=== PATIENT | female | born 1940 | race Caucasian/White ===

== ENCOUNTER 2017-04-24 08:05 | Emergency (ER) | payer MEDICARE, OTHER ==
--- NOTE | 2017-04-24 08:58 | EDM.PDOC ---
ED HPI GENERAL MEDICAL PROBLEM - General Chief Complaint: Syncope Stated Complaint: VERTIGO Time Seen by Provider: 04/24/17 08:20 Source of Information: Reports: Patient, Family History Limitations: Reports: No Limitations - History of Present Illness INITIAL COMMENTS - FREE TEXT/NARRATIVE: 77-year-old female who lives independently was doing fine but last evening around 5 PM she was sitting, rolled to the side to get up and had a sudden onset of vertigo. She's had no headache, shortness of breath, palpitations, trauma, or recent illness. It has persisted for the last 12 hours, she is having trouble ambulating and needs assistance with holding onto rolling chairs or a walker. She also has persistent nausea, tried to drink some coffee this morning and had emesis. She's vomited several times overnight. If she sits still she feels fairly comfortable but any movement especially of her head causes vertigo. She had 1 previous episode similar to this but it was years ago and was a "virus". Onset: Sudden Duration: Hour(s): (13 hours ago) Severity: Moderate Improves with: Reports: Other (Sitting still) Worsens with: Reports: Movement Associated Symptoms: Reports: Malaise, Nausea/Vomiting. Denies: Confusion, Chest Pain, Cough, Fever/Chills, Headaches, Shortness of Breath denies pain Pain Score (Numeric/FACES): 0 - Related Data Allergies Allergy/AdvReac Type Severity Reaction Status Date / Time [id number]-Tab Reductase AdvReac Severe sore Verified 04/24/17 08:10 Inhibitor muscles painful to walk Home Meds: Home Meds Aspirin/Calcium Carbonate/Mag [Aspirin Buffered 325 mg Tab] 325 mg PO DAILY 09/09 [History] Calcium Carb & Citrate/Vit D3 [Calcium + D3 ER Tablet] 1 each PO BID 04/28/13 [ History] Flaxseeds 2 oz OR DAILY 04/28/13 [History] Loratadine [Claritin] 10 mg PO DAILY PRN 04/28/13 [History] Metoprolol Tartrate [Lopressor] 25 mg OR DAILY 04/28/13 [History] Multivitamin [Multi Vitamin Daily] 1 each PO DAILY 04/28/13 [History] [place]-3/DHA/Epa/Fish Oil [Fish Oil 1,000 mg Softgel] 1 each PO DAILY 04/28/13 [ History] Ranitidine HCl [Ranitidine] 150 mg PO BID 04/28/13 [History] Gabapentin [Neurontin] 600 mg PO TID 12/23/15 [History] rOPINIRole HCl [Requip] 1 mg PO DAILY 12/23/15 [History] Past Medical History HEENT History: Reports: Impaired Vision Cardiovascular History: Reports: High Cholesterol, Hypertension 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 History: Reports: 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: Musculoskeletal History: Reports: Back Pain, Chronic, Osteoarthritis Neurological History: Reports: TIA - Infectious Disease History Infectious Disease History: Reports: Measles, Mumps - Past Surgical History HEENT Surgical History: Reports: Cataract Surgery Cardiovascular Surgical History: Reports: Other (See Below) Other Cardiovascular Surgeries/Procedures: angiogram GI Surgical History: Reports: Appendectomy, Hernia Repair/Other Female Surgical History: Reports: Hysterectomy Social & Family History - Tobacco Use Smoking Status *Q: Current Every Day Smoker Years of Tobacco use: 50 Packs/Tins Daily: 1 Used Tobacco, but Quit: No Month Tobacco Last Used: 10/26/2014 Second Hand Smoke Exposure: Yes - Caffeine Use Caffeine Use: Reports: Coffee - Recreational Drug Use Recreational Drug Use: No ED ROS GENERAL - Review of Systems Review Of Systems: See Below Constitutional: Denies: Fever, Chills HEENT: Reports: Sinus Problem (She has had some recent sinus congestion). Denies: Vision Change Respiratory: Denies: Shortness of Breath, Cough Cardiovascular: Denies: Chest Pain GI/Abdominal: Denies: Abdominal Pain : Reports: No Symptoms Musculoskeletal: Reports: Back Pain (Chronic back pain) Skin: Reports: No Symptoms Neurological: Reports: Difficulty Walking (Due to vertigo). Denies: Headache, Numbness, Paresthesia, Tingling Psychiatric: Reports: No Symptoms ED EXAM, DIZZINESS - Physical Exam Exam: See Below Exam Limited By: No Limitations General Appearance: Alert, Mild Distress (Very uncomfortable with any movement, stable when still) Eye Exam: Bilateral Eye: Other (Patient surprisingly has no nystagmus either direction. It is somewhat more difficult for her to gaze to the left but I cannot produce nystagmus) Ears: Normal External Exam, Normal TMs Head Exam: Atraumatic Vertigo: reproducible (Reproducible with movement of the head but no direction is significantly worse than the other) Respiratory/Chest: No Respiratory Distress, Lungs Clear GI/Abdominal: Non-Tender Neurological: Alert, No Motor/Sensory Deficits, Oriented x 3 Extremities: No: Pedal Edema Psychiatric: Normal Affect, Normal Mood Skin Exam: Warm, Dry Course - Vital Signs Last Recorded V/S: Last Vital Signs Temp 96.8 F 04/24/17 08:11 Pulse 58 L 04/24/17 09:20 Resp 21 H 04/24/17 09:20 BP 173/85 H 04/24/17 09:20 Pulse Ox 98 04/24/17 09:20 - Orders/Labs/Meds Labs: Laboratory Tests 04/24/17 04/24/17 Range/Units 08:58 08:58 WBC 9.4 (4.5-11.0) K/uL RBC 4.71 (3.30-5.50) M/uL Hgb 15.4 H (12.0-15.0) g/dL Hct 45.0 (36.0-48.0) % MCV 96 (80-98) fL MCH 33 H (27-31) pg MCHC 34 (32-36) % Plt Count 239 (150-400) K/uL Neut % (Auto) 87 H (36-66) % Lymph % (Auto) 8 L (24-44) % [place] % (Auto) 5 (2-6) % Eos % (Auto) 0 L (2-4) % Baso % (Auto) 0 (0-1) % Sodium 140 (140-148) mmol/L Potassium 4.5 (3.6-5.2) mmol/L Chloride 101 (100-108) mmol/L Carbon Dioxide 29 (21-32) mmol/L Anion Gap 10.2 (5.0-14.0) mmol/L BUN 21 H (7-18) mg/dL Creatinine 1.0 (0.6-1.0) mg/dL Est Cr Clr Drug Dosing 33.84 mL/min Estimated GFR (MDRD) 54 L (>60) Glucose 117 H (74-106) mg/dL Calcium 9.2 (8.5-10.1) mg/dL Total Bilirubin 0.3 (0.2-1.0) mg/dL AST 19 (15-37) U/L ALT 25 (12-78) U/L Alkaline Phosphatase 58 (46-116) U/L Total Protein 7.9 (6.4-8.2) g/dL Albumin 3.9 (3.4-5.0) g/dL Globulin 4.0 H (2.3-3.5) g/dL Albumin/Globulin Ratio 1.0 L (1.2-2.2) Meds: Medications Discontinued Medications Generic Name Dose Route Start Last Admin Trade Name Garima PRN Reason Stop Dose Admin Meclizine HCl 25 mg 04/24/17 09:17 04/24/17 09:26 Antivert PO 04/24/17 09:18 25 mg ONETIME ONE Administration - Re-Assessments/Exams Free Text/Narrative Re-Assessment/Exam: 04/24/17 08:58 Patient was initially placed on a quality assurance monitor final and is in a normal sinus rhythm, normal vitals. An Yasmin maneuver was performed focusing on the left, after 15 minutes there was no improvement. At that point the patient was sent to CT for a noncontrast head CT, and a CBC and CMP were obtained. 04/24/17 09:37 CT of the head was normal. Labs were also reassuring. The patient was given 25 mg of meclizine by mouth. 04/24/17 09:42 Prior to discharge the patient was ambulated in the pugh with assistance and was much improved. She was discharged with additional doses of meclizine to take up to 3 times a day and can return anytime if worsening or concerns. Departure - Departure Time of Disposition: 09:58 Disposition: Home, Self-Care 01 Condition: Fair Clinical Impression: Vertigo, benign positional Qualifiers: Laterality: left Qualified Code(s): H81.12 - Benign paroxysmal vertigo, left ear - Discharge Information Instructions: Vertigo, [id number] Referrals: Mone Ortiz PA [Primary Care Provider] - Forms: ED Department Discharge Care Plan Goals: Continue your current medications, use meclizine every 6-8 hours for persistent vertigo and increase activity as tolerated. Return anytime if worsening or concerns. You should also consider rechecking in 2-3 days if not improving satisfactorily.
[2017-04-24] MEDS ORDERED: Meclizine 25 MG Tab PO ONE (09:17)
[2017-04-24 09:21] VITALS: BP 173/85
--- NOTE | 2017-04-24 09:24 | CT ---
Head wo Cont INDICATION: acute vertigo TECHNIQUE: CT images of the head obtained without IV contrast. DLP: 746 mGycm COMPARISON: 03/28/2010 FINDINGS: No acute intracranial abnormality. No hemorrhage, edema or mass effect. Minimal atrophy and chronic small vessel ischemic disease. The ventricles are normal size. Skull intact. Visualized paranasal sinuses clear. IMPRESSION: Nothing acute. Atrophy and chronic small vessel ischemic disease.
== END 2017-04-24 09:50 | disposition home or self-care (01) ==
LOC: JP.ED 08:05
DX: H81.12 Benign paroxysmal vertigo, left ear (principal); E78.00 Pure hypercholesterolemia, unspecified; I10 Essential (primary) hypertension; M19.90 Unspecified osteoarthritis, unspecified site; F17.210 Nicotine dependence, cigarettes, uncomplicated; Z98.890 Other specified postprocedural states; Z98.49 Cataract extraction status, unspecified eye; Z90.710 Acquired absence of both cervix and uterus; Z79.82 Long term (current) use of aspirin; Z86.73 Personal history of transient ischemic attack (TIA), and cerebral infarction without residual deficits; Z79.899 Other long term (current) drug therapy; Z88.8 Allergy status to other drugs, medicaments and biological substances
CPT/HCPCS: 36415; 70450; 80053; 85025; 99284; A9270; 99283

== ENCOUNTER 2018-02-01 08:28 | Inpatient (IN) | payer MEDICARE, OTHER ==
--- NOTE | 2018-02-01 08:57 | EDM.PDOC ---
ED HPI GENERAL MEDICAL PROBLEM - General Chief Complaint: Cardiovascular Problem Stated Complaint: MEDICAL VIA [place]TH Time Seen by Provider: 02/01/18 08:46 Source of Information: Reports: Patient, RN Notes Reviewed History Limitations: Reports: No Limitations - History of Present Illness INITIAL COMMENTS - FREE TEXT/NARRATIVE: 78-year-old female brought in by EMS services today with a complaint of dizziness a syncopal event on a fall for unknown period of time, she states she' s been ill for about 6 days has had diarrhea on and off denies any fevers slight cough. She recalls going to the mailbox this morning and then awoke on the floor in a house and does not recall falling she denies any pain, also noted by EMS is that she was in atrial fibrillation no history of atrial fibrillation - Related Data Allergies Allergy/AdvReac Type Severity Reaction Status Date / Time [id number]-[id number] Reductase AdvReac Severe sore Verified 04/24/17 08:10 Inhibitor muscles painful to walk Home Meds: Home Meds Aspirin/Calcium Carbonate/Mag [Aspirin Buffered 325 mg Tab] 325 mg PO DAILY 09/09 [History] Metoprolol Tartrate [Lopressor] 25 mg PO DAILY 04/28/13 [History] Multivitamin [Multi Vitamin Daily] 1 each PO DAILY 04/28/13 [History] [place]-3/DHA/Epa/Fish Oil [Fish Oil 1,000 mg Softgel] 1 each PO DAILY 04/28/13 [ History] Ranitidine HCl [Ranitidine] 150 mg PO BID 04/28/13 [History] Gabapentin [Neurontin] 600 mg PO TID 12/23/15 [History] rOPINIRole HCl [Requip] 2 mg PO BEDTIME 12/23/15 [History] Biotin 1 tab PO DAILY 02/01/18 [History] Cholecalciferol (Vitamin D3) [Vitamin D3] 1,000 unit PO DAILY 02/01/18 [History] Meclizine [Antivert] 1 tab PO ASDIRECTED PRN 02/01/18 [History] Past Medical History HEENT History: Reports: Impaired Vision Cardiovascular History: Reports: High Cholesterol, Hypertension 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 History: Reports: 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: Musculoskeletal History: Reports: Back Pain, Chronic, Osteoarthritis Neurological History: Reports: TIA - Infectious Disease History Infectious Disease History: Reports: Measles, Mumps - Past Surgical History HEENT Surgical History: Reports: Cataract Surgery Cardiovascular Surgical History: Reports: Other (See Below) Other Cardiovascular Surgeries/Procedures: angiogram GI Surgical History: Reports: Appendectomy, Hernia Repair/Other Female Surgical History: Reports: Hysterectomy Social & Family History - Tobacco Use Smoking Status *Q: Never Smoker - Caffeine Use Caffeine Use: Reports: Coffee - Recreational Drug Use Recreational Drug Use: No ED ROS GENERAL - Review of Systems Review Of Systems: See Below Constitutional: Reports: Weakness. Denies: Fever, Chills HEENT: Reports: Vertigo Respiratory: Reports: Cough Cardiovascular: Reports: No Symptoms GI/Abdominal: Reports: Diarrhea, Nausea : Reports: No Symptoms Musculoskeletal: Reports: No Symptoms Skin: Reports: No Symptoms ED EXAM, GENERAL - Physical Exam Exam: See Below Free Text/Narrative:: General: Elderly female, ill-appearing, alert and oriented x3 HEENT: head is atraumatic normocephalic, eyes pupils equal round reactive to light, sclera clear no conjunctivitis appreciated. Ears tympanic membranes clear and galan landmarks and light reflex are present bilaterally canals are clear. Nose no septal deviation, nares are clear, no blood present. Mouth mucosa is dry and pink no erythema or exudate noted in soft palate, tongue is midline uvula is midline, dentition is intact. Neck: Supple no thyromegaly no tracheal deviation. Nodes: Cervical nodes subclavicular nodes nontender no palpable lymphadenopathy noted. Lungs: clear to auscultation bilaterally with symmetrical respirations, no adventitious noise appreciated. CV: Tachycardic rate and rhythm S1 and S2 appreciated no murmurs rubs or gallops noted. Abdomen: Soft, nontender, no palpable masses or organomegaly appreciated, no distention no guarding bowel sounds are present, . Neuro: Cranial nerves II through XII grossly intact Skin: Warm and dry, intact Extremities: No lower extremity edema appreciated, Course - Vital Signs Last Recorded V/S: Last Vital Signs Temp 99.9 F 02/01/18 08:52 Pulse 107 H 02/01/18 09:50 Resp 18 02/01/18 09:50 BP 147/71 H 02/01/18 09:50 Pulse Ox 95 02/01/18 09:50 - Orders/Labs/Meds Orders: Active Orders 24 hr Category Date Time Status Vital Signs [RC] Q1H Care 02/01/18 08:50 Active Chest 1V Frontal [CR] Urgent Exams 02/01/18 08:55 Taken CULTURE BLOOD [BC] Urgent Lab 02/01/18 09:00 Received CULTURE BLOOD [BC] Urgent Lab 02/01/18 09:05 Received UA W/MICROSCOPIC [URIN] Urgent Lab 02/01/18 08:50 Ordered Lactated Ringers [Ringers, Lactated] 1,000 ml Med 02/01/18 09:00 Active IV ASDIRECTED Piperacillin/Tazobactam/Dext [Zosyn in Dextrose Iso- Med 02/01/18 09:15 Active Osmotic] 4.5 gm Premix Bag 1 bag IV Q6H Blood Culture x2 Reflex Set [OM.PC] Urgent Oth 02/01/18 08:50 Ordered Medication Orders Lactated Ringer's (Ringers, Lactated) 1,000 mls @ 999 mls/hr IV ASDIRECTED TARUN Last Admin: 02/01/18 09:01 Dose: 999 mls/hr Piperacillin/Tazobactam/ (Dextrose 4.5 gm/ Premix) 100 mls @ 200 mls/hr IV Q6H [facility] Last Admin: 02/01/18 09:25 Dose: 200 mls/hr Labs: Laboratory Tests 02/01/18 02/01/18 02/01/18 Range/Units 08:50 09:00 09:00 WBC 10.6 (4.5-11.0) K/uL RBC 3.81 (3.30-5.50) M/uL Hgb 12.2 D (12.0-15.0) g/dL Hct 36.6 (36.0-48.0) % MCV 96 (80-98) fL MCH 32 H (27-31) pg MCHC 33 (32-36) % Plt Count 415 H (150-400) K/uL Neut % (Auto) 85 H (36-66) % Lymph % (Auto) 7 L (24-44) % [place] % (Auto) 7 H (2-6) % Eos % (Auto) 0 L (2-4) % Baso % (Auto) 0 (0-1) % Sodium 137 L (140-148) mmol/L Potassium 3.7 (3.6-5.2) mmol/L Chloride 99 L (100-108) mmol/L Carbon Dioxide 25 (21-32) mmol/L Anion Gap 16.7 H (5.0-14.0) mmol/L BUN 16 (7-18) mg/dL Creatinine 1.1 H (0.6-1.0) mg/dL Est Cr Clr Drug Dosing 33.34 mL/min Estimated GFR (MDRD) 48 L (>60) Glucose 104 (74-106) mg/dL Lactic Acid (0.4-2.0) mmol/L Calcium 8.8 (8.5-10.1) mg/dL Total Bilirubin 0.7 D (0.2-1.0) mg/dL AST 27 (15-37) U/L ALT 73 D (12-78) U/L Alkaline Phosphatase 125 H D (46-116) U/L Creatine Kinase (26-192) U/L C-Reactive Protein 8.86 H (0.0-0.3) mg/dL Total Protein 7.3 (6.4-8.2) g/dL Albumin 3.0 L (3.4-5.0) g/dL Globulin 4.3 H (2.3-3.5) g/dL Albumin/Globulin Ratio 0.7 L (1.2-2.2) Urine Color Yellow Urine Appearance Clear Urine pH 7.0 (4.5-8.0) Ur Specific [place] 1.005 L (1.008-1.030) Urine Protein Negative (NEGATIVE) mg/dL Urine Glucose (UA) Normal (NEGATIVE) mg/dL Urine Ketones 15 H (NEGATIVE) mg/dL Urine Occult Blood Negative (NEGATIVE) Urine Nitrite Negative (NEGATIVE) Urine Bilirubin Negative (NEGATIVE) Urine Urobilinogen 1 (NORMAL) mg/dL Ur Leukocyte Esterase Negative (NEGATIVE) Urine RBC 0-5 (0-5) Urine WBC 0-5 (0-5) Ur Epithelial Cells Rare Amorphous Sediment Not seen Urine Bacteria Not seen Urine Mucus Not seen 02/01/18 02/01/18 Range/Units 09:00 09:00 WBC (4.5-11.0) K/uL RBC (3.30-5.50) M/uL Hgb (12.0-15.0) g/dL Hct (36.0-48.0) % MCV (80-98) fL MCH (27-31) pg MCHC (32-36) % Plt Count (150-400) K/uL Neut % (Auto) (36-66) % Lymph % (Auto) (24-44) % [place] % (Auto) (2-6) % Eos % (Auto) (2-4) % Baso % (Auto) (0-1) % Sodium (140-148) mmol/L Potassium (3.6-5.2) mmol/L Chloride (100-108) mmol/L Carbon Dioxide (21-32) mmol/L Anion Gap (5.0-14.0) mmol/L BUN (7-18) mg/dL Creatinine (0.6-1.0) mg/dL Est Cr Clr Drug Dosing mL/min Estimated GFR (MDRD) (>60) Glucose (74-106) mg/dL Lactic Acid 1.9 (0.4-2.0) mmol/L Calcium (8.5-10.1) mg/dL Total Bilirubin (0.2-1.0) mg/dL AST (15-37) U/L ALT (12-78) U/L Alkaline Phosphatase (46-116) U/L Creatine Kinase 78 (26-192) U/L C-Reactive Protein (0.0-0.3) mg/dL Total Protein (6.4-8.2) g/dL Albumin (3.4-5.0) g/dL Globulin (2.3-3.5) g/dL Albumin/Globulin Ratio (1.2-2.2) Urine Color Urine Appearance Urine pH (4.5-8.0) Ur Specific [place] (1.008-1.030) Urine Protein (NEGATIVE) mg/dL Urine Glucose (UA) (NEGATIVE) mg/dL Urine Ketones (NEGATIVE) mg/dL Urine Occult Blood (NEGATIVE) Urine Nitrite (NEGATIVE) Urine Bilirubin (NEGATIVE) Urine Urobilinogen (NORMAL) mg/dL Ur Leukocyte Esterase (NEGATIVE) Urine RBC (0-5) Urine WBC (0-5) Ur Epithelial Cells Amorphous Sediment Urine Bacteria Urine Mucus Meds: Medications Generic Name Dose Route Start Last Admin Trade Name Freq PRN Reason Stop Dose Admin Lactated Ringer's 1,000 mls @ 999 mls/hr 02/01/18 09:00 02/01/18 09:01 Ringers, Lactated IV 999 mls/hr ASDIRECTED TARUN Administration Piperacillin/Tazobactam/ 100 mls @ 200 mls/hr 02/01/18 09:15 02/01/18 09:25 Dextrose 4.5 gm/ Premix IV 200 mls/hr Q6H TARUN Administration Discontinued Medications Generic Name Dose Route Start Last Admin Trade Name Freq PRN Reason Stop Dose Admin Ondansetron HCl 4 mg 02/01/18 08:58 02/01/18 09:03 Zofran IVPUSH 02/01/18 08:59 4 mg ONETIME ONE Administration Departure - Departure Time of Disposition: 10:06 Disposition: Admitted As Inpatient 66 Condition: Fair Clinical Impression: Atrial fibrillation with slow ventricular response Referrals: PCP,None [Primary Care Provider] - Forms: ED Department Discharge - My Orders Last 24 Hours: My Active Orders 02/01/18 08:50 Vital Signs [RC] Q1H UA W/MICROSCOPIC [URIN] Urgent Blood Culture x2 Reflex Set [OM.PC] Urgent 02/01/18 08:55 Chest 1V Frontal [CR] Urgent 02/01/18 09:00 CULTURE BLOOD [BC] Urgent Lactated Ringers [Ringers, Lactated] 1,000 ml IV ASDIRECTED 02/01/18 09:05 CULTURE BLOOD [BC] Urgent 02/01/18 09:15 Piperacillin/Tazobactam/Dext [Zosyn in Dextrose Iso-Osmotic] 4.5 gm Premix Bag 1 bag IV Q6H - Assessment/Plan Last 24 Hours: My Active Orders 02/01/18 08:50 Vital Signs [RC] Q1H UA W/MICROSCOPIC [URIN] Urgent Blood Culture x2 Reflex Set [OM.PC] Urgent 02/01/18 08:55 Chest 1V Frontal [CR] Urgent 02/01/18 09:00 CULTURE BLOOD [BC] Urgent Lactated Ringers [Ringers, Lactated] 1,000 ml IV ASDIRECTED 02/01/18 09:05 CULTURE BLOOD [BC] Urgent 02/01/18 09:15 Piperacillin/Tazobactam/Dext [Zosyn in Dextrose Iso-Osmotic] 4.5 gm Premix Bag 1 bag IV Q6H Plan: Assessment Acuity = acute Site and laterality = new onset atrial fibrillation with sinus pauses, gastroenteritis complicated patient with known history of hypertension and dyslipidemia Etiology = unclear etiology Manifestations = syncopal event Location of injury = Home Lab values = WBC unremarkable creatinine elevated 1.1 consistent with chronic renal failure stage G IIIB CRP elevated 8.89 albumin low at 3.0 consistent hypoalbuminemia urinalysis unremarkable chest x-ray I did review films myself I cannot appreciate any acute process, the official read from radiology is pending initial EKG does show atrial fibrillation rate around 120, while on the monitor were able to observe multiple positives at which time she did have dizzy symptoms Plan Call discuss case hospitalist sap pp consultant he agreed to come and evaluate the patient in the emergency department for admission This note was dictated using [employer] voice recognition software please call with any questions on syntax or grammar.
[2018-02-01] MEDS ORDERED: Ondansetron 4 MG/2 ML SDV IVPUSH ONE (08:58)
[2018-02-01] MEDS ORDERED: Piperacillin/Tazobactam 4.5 GM in Sodium Chloride 0.9% 100 ML IV SCH (09:00)
[2018-02-01] MEDS ORDERED: Lactated Ringers 1,000 ML IV SCH (09:00)
[2018-02-01] MEDS ORDERED: Piperacillin/Tazobactam/Dext 4.5 GM in Premix Bag 1 BAG IV SCH (09:15)
--- NOTE | 2018-02-01 11:27 | PCM.HP ---
H&P History of Present Illness - General Date of Service: 02/01/18 Admit Problem/Dx: Admission Diagnosis/Problem Admission Diagnosis/Problem Sick sinus syndrome Source of Information: Patient, Family, Provider History Limitations: Reports: No Limitations - History of Present Illness Initial Comments - Free Text/Narative: Mary Jane presents to the emergency room today with intermittent spells of dizziness. She describes them as a lightheaded/was a feeling and they seem to be most prominent on the left side of her head. She's had several spells over the past week. She reports yesterday she woke up on the floor after walking back from the mailbox. She's not sure how long she was laying on the floor. She felt fine after she woke up so she did not seek medical attention but she did note a bump on the back of her head. She's had some mild nausea and intermittent diarrhea throughout the week but no fevers or chills. Appetite has been okay for the most part but food seems to make the nausea little bit more intense. She reports mild generalized abdominal pain. The pain has not been bad enough for her to take anything for the pain. Pain is relatively constant even though mild and does not radiate. No obvious triggers to make it worse. She does not report a history of heart disease. Since arrival to the emergency room she has had intermittent episodes of tachycardia with heart rates in the 140s as well as episodes of bradycardia with heart rates down into the low 30s. Laboratory studies are fairly unremarkable at this point. As the emergency room stay has progressed she went into a junctional escape rhythm. There is concern for sick sinus syndrome with tachybradycardia syndrome. Pacemaker placement is planned. - Related Data Allergies/Adverse Reactions: Allergies Allergy/AdvReac Type Severity Reaction Status Date / Time Zrompvp-Cgi-Vcv Reductase AdvReac Severe sore Verified 04/24/17 08:10 Inhibitor muscles painful to walk Home Medications: Home Meds Aspirin/Calcium Carbonate/Mag [Aspirin Buffered 325 mg Tab] 325 mg PO DAILY 09/09 [History] Metoprolol Tartrate [Lopressor] 25 mg PO DAILY 04/28/13 [History] Multivitamin [Multi Vitamin Daily] 1 each PO DAILY 04/28/13 [History] [place]-3/DHA/Epa/Fish Oil [Fish Oil 1,000 mg Softgel] 1 each PO DAILY 04/28/13 [ History] Ranitidine HCl [Ranitidine] 150 mg PO BID 04/28/13 [History] Gabapentin [Neurontin] 600 mg PO TID 12/23/15 [History] rOPINIRole HCl [Requip] 2 mg PO BEDTIME 12/23/15 [History] Biotin 1 tab PO DAILY 02/01/18 [History] Cholecalciferol (Vitamin D3) [Vitamin D3] 1,000 unit PO DAILY 02/01/18 [History] Meclizine [Antivert] 1 tab PO ASDIRECTED PRN 02/01/18 [History] Past Medical History HEENT History: Reports: Impaired Vision Cardiovascular History: Reports: High Cholesterol, Hypertension 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 History: Reports: 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: Musculoskeletal History: Reports: Back Pain, Chronic, Osteoarthritis Neurological History: Reports: TIA - Infectious Disease History Infectious Disease History: Reports: Measles, Mumps - Past Surgical History HEENT Surgical History: Reports: Cataract Surgery Cardiovascular Surgical History: Reports: Other (See Below) Other Cardiovascular Surgeries/Procedures: angiogram GI Surgical History: Reports: Appendectomy, Hernia Repair/Other Female Surgical History: Reports: Hysterectomy Social & Family History - Family History Cardiac: Reports: Other (See Below) (mom had SSS but declined pacemaker) - Tobacco Use Smoking Status *Q: Never Smoker - Caffeine Use Caffeine Use: Reports: Coffee - Alcohol Use Alcohol Use History: No - Recreational Drug Use Recreational Drug Use: No H&P Review of Systems - Review of Systems: Review Of Systems: See Below Free Text/Narrative: A complete 12 point review of systems was obtained. Pertinent positives and negatives are noted in the history of present illness. All other systems were reviewed and were negative except as noted. Exam - Exam Exam: See Below - Vital Signs Vital Signs: Last Vital Signs Temp 37.7 C 02/01/18 08:52 Pulse 107 H 02/01/18 09:50 Resp 18 02/01/18 09:50 BP 147/71 H 02/01/18 09:50 Pulse Ox 95 02/01/18 09:50 Weight: 69.4 kg - Exam Quality Assessment: No: Supplemental Oxygen General: Alert, Oriented, Cooperative. No: Mild Distress HEENT: Conjunctiva Clear, Mucosa Moist & [place]. No: Scleral Icterus Neck: Supple, Trachea Midline. No: Lymphadenopathy, JVD Lungs: Clear to Auscultation, Normal Respiratory Effort Cardiovascular: Regular Rhythm, Bradycardia. No: Systolic Murmur GI/Abdominal Exam: Normal Bowel Sounds, Soft, Non-Tender, No Distention Back Exam: Normal Inspection, Full Range of Motion Extremities: No Pedal Edema. No: Increased Warmth Peripheral Pulses: 2+: Dorsalis Pedis (L), Dorsalis Pedis (R) Skin: Warm, Dry Neuro Extensive - Mental Status: Alert, Oriented x3, Nl Response to Commands Neuro Extensive - Motor, Sensory, Reflexes: CN II-XII Intact. No: Dysarthria, Abnormal Motor, Tremor Psychiatric: Alert, Normal Affect - Patient Data Lab Results Last 24 hrs: Laboratory Results - last 24 hr 02/01/18 02/01/18 02/01/18 Range/Units 08:50 09:00 09:00 WBC 10.6 (4.5-11.0) K/uL RBC 3.81 (3.30-5.50) M/uL Hgb 12.2 D (12.0-15.0) g/dL Hct 36.6 (36.0-48.0) % MCV 96 (80-98) fL MCH 32 H (27-31) pg MCHC 33 (32-36) % Plt Count 415 H (150-400) K/uL Neut % (Auto) 85 H (36-66) % Lymph % (Auto) 7 L (24-44) % Burt % (Auto) 7 H (2-6) % Eos % (Auto) 0 L (2-4) % Baso % (Auto) 0 (0-1) % Sodium 137 L (140-148) mmol/L Potassium 3.7 (3.6-5.2) mmol/L Chloride 99 L (100-108) mmol/L Carbon Dioxide 25 (21-32) mmol/L Anion Gap 16.7 H (5.0-14.0) mmol/L BUN 16 (7-18) mg/dL Creatinine 1.1 H (0.6-1.0) mg/dL Est Cr Clr Drug Dosing 33.34 mL/min Estimated GFR (MDRD) 48 L (>60) Glucose 104 (74-106) mg/dL Lactic Acid (0.4-2.0) mmol/L Calcium 8.8 (8.5-10.1) mg/dL Total Bilirubin 0.7 D (0.2-1.0) mg/dL AST 27 (15-37) U/L ALT 73 D (12-78) U/L Alkaline Phosphatase 125 H D (46-116) U/L Creatine Kinase (26-192) U/L C-Reactive Protein 8.86 H (0.0-0.3) mg/dL Total Protein 7.3 (6.4-8.2) g/dL Albumin 3.0 L (3.4-5.0) g/dL Globulin 4.3 H (2.3-3.5) g/dL Albumin/Globulin Ratio 0.7 L (1.2-2.2) Urine Color Yellow Urine Appearance Clear Urine pH 7.0 (4.5-8.0) Ur Specific [place] 1.005 L (1.008-1.030) Urine Protein Negative (NEGATIVE) mg/dL Urine Glucose (UA) Normal (NEGATIVE) mg/dL Urine Ketones 15 H (NEGATIVE) mg/dL Urine Occult Blood Negative (NEGATIVE) Urine Nitrite Negative (NEGATIVE) Urine Bilirubin Negative (NEGATIVE) Urine Urobilinogen 1 (NORMAL) mg/dL Ur Leukocyte Esterase Negative (NEGATIVE) Urine RBC 0-5 (0-5) Urine WBC 0-5 (0-5) Ur Epithelial Cells Rare Amorphous Sediment Not seen Urine Bacteria Not seen Urine Mucus Not seen 02/01/18 02/01/18 Range/Units 09:00 09:00 WBC (4.5-11.0) K/uL RBC (3.30-5.50) M/uL Hgb (12.0-15.0) g/dL Hct (36.0-48.0) % MCV (80-98) fL MCH (27-31) pg MCHC (32-36) % Plt Count (150-400) K/uL Neut % (Auto) (36-66) % Lymph % (Auto) (24-44) % Burt % (Auto) (2-6) % Eos % (Auto) (2-4) % Baso % (Auto) (0-1) % Sodium (140-148) mmol/L Potassium (3.6-5.2) mmol/L Chloride (100-108) mmol/L Carbon Dioxide (21-32) mmol/L Anion Gap (5.0-14.0) mmol/L BUN (7-18) mg/dL Creatinine (0.6-1.0) mg/dL Est Cr Clr Drug Dosing mL/min Estimated GFR (MDRD) (>60) Glucose (74-106) mg/dL Lactic Acid 1.9 (0.4-2.0) mmol/L Calcium (8.5-10.1) mg/dL Total Bilirubin (0.2-1.0) mg/dL AST (15-37) U/L ALT (12-78) U/L Alkaline Phosphatase (46-116) U/L Creatine Kinase 78 (26-192) U/L C-Reactive Protein (0.0-0.3) mg/dL Total Protein (6.4-8.2) g/dL Albumin (3.4-5.0) g/dL Globulin (2.3-3.5) g/dL Albumin/Globulin Ratio (1.2-2.2) Urine Color Urine Appearance Urine pH (4.5-8.0) Ur Specific [place] (1.008-1.030) Urine Protein (NEGATIVE) mg/dL Urine Glucose (UA) (NEGATIVE) mg/dL Urine Ketones (NEGATIVE) mg/dL Urine Occult Blood (NEGATIVE) Urine Nitrite (NEGATIVE) Urine Bilirubin (NEGATIVE) Urine Urobilinogen (NORMAL) mg/dL Ur Leukocyte Esterase (NEGATIVE) Urine RBC (0-5) Urine WBC (0-5) Ur Epithelial Cells Amorphous Sediment Urine Bacteria Urine Mucus Result Diagrams: 02/01/18 09:00 02/01/18 09:00 Imaging Impressions Last 24 hrs: CXR - images personally reviewed - heart size is enlarged, no mass, infiltrate or effusion is noted EKG INTERPRETATION EKG Date: 02/01/18 Rhythm: A-Fib Rate (Beats/Min): 122 [place]: LAD-Left [place] Deviation (LAFB) P-Wave: Variable QRS: Wide ST-T: Normal QT: Normal *Q Meaningful Use (ADM) - VTE *Q VTE Pharmacological Contraindications *Q: Patient Scheduled Surgery - VTE Risk Assess *Q Each Risk Factor Represents 1 Point: Minor Surgery Planned, Obesity ( BMI > 25 kg/m2) Total Score 1 Point Risk Factors: 2 Each Risk Factor Represents 2 Points: None Total Score 2 Point Risk Factors: 0 Each Risk Factor Represents 3 Points: Age 75 Years or Greater Total Score 3 Point Risk Factors: 3 Each Risk Factor Represents 5 Points: None Total Score 5 Point Risk Factors: 0 Venous Thromboembolism Risk Factor Score *Q: 5 - Problem List (1) Sick sinus syndrome SNOMED Code(s): 58711673 ICD Code: I49.5 - SICK SINUS SYNDROME Status: Acute Current Visit: Yes (2) Tachy-savita syndrome SNOMED Code(s): 90360494 ICD Code: I49.5 - SICK SINUS SYNDROME Status: Acute Current Visit: Yes (3) CKD (chronic kidney disease), stage III SNOMED Code(s): 426071628 ICD Code: N18.3 - CHRONIC KIDNEY DISEASE, STAGE 3 (MODERATE) Status: Chronic Current Visit: Yes (4) Tobacco dependence SNOMED Code(s): 90440409 ICD Code: F17.200 - NICOTINE DEPENDENCE, UNSPECIFIED, UNCOMPLICATED Status : Chronic Current Visit: Yes Problem List Initiated/Reviewed/Updated: Yes Orders Last 24hrs: Active Orders 24 hr Category Date Time Status Patient Status Manage Transfer [TRANSFER] Routine ADT 02/01/18 11:14 Ordered Vital Signs [RC] Q1H Care 02/01/18 08:50 Active Chest 1V Frontal [CR] Urgent Exams 02/01/18 08:55 Taken CULTURE BLOOD [BC] Urgent Lab 02/01/18 09:00 Received CULTURE BLOOD [BC] Urgent Lab 02/01/18 09:05 Received UA W/MICROSCOPIC [URIN] Urgent Lab 02/01/18 08:50 Ordered Lactated Ringers [Ringers, Lactated] 1,000 ml Med 02/01/18 09:00 Active IV ASDIRECTED Piperacillin/Tazobactam/Dext [Zosyn in Dextrose Iso- Med 02/01/18 09:15 Active Osmotic] 4.5 gm Premix Bag 1 bag IV Q6H Blood Culture x2 Reflex Set [OM.PC] Urgent Oth 02/01/18 08:50 Ordered Resuscitation Status Routine Resus Stat 02/01/18 11:18 Ordered Medication Orders Lactated Ringer's (Ringers, Lactated) 1,000 mls @ 999 mls/hr IV ASDIRECTED TARUN Last Admin: 02/01/18 09:01 Dose: 999 mls/hr Piperacillin/Tazobactam/ (Dextrose 4.5 gm/ Premix) 100 mls @ 200 mls/hr IV Q6H TARUN Last Admin: 02/01/18 09:25 Dose: 200 mls/hr Assessment/Plan Comment:: ASSESSMENT AND PLAN - Sick sinus syndrome with tachybradycardia syndrome - intermittent episodes of tachycardia followed by significant bradycardia. Patient has had presyncopal episodes as well as a syncopal episode over the past week. I believe permanent pacemaker is indicated given her current junctional escape rhythm as well as syncope. Pacemaker will also allow us to treat the tachycardic part of the tachybradycardia syndrome. -Surgical consultation for pacemaker placement -ICU admission with cardiac monitoring -Hold beta nikki this morning -Check TSH Tobacco dependence - patient will need counseling about the risks of tobacco use. Stage III chronic kidney disease - kidney function stable. Maintenance issues - - DVT prophylaxis - mechanical with upcoming surgery - GI prophylaxis - not indicated - Nutrition - nothing by mouth until after surgery - Puente catheter - not indicated CODE STATUS - DNR/DNI Admission justification - This patient will be admitted for inpatient services and is medically appropriate meeting medical necessity for inpatient admission as outlined in my documentation. I reasonably expect the patient will require inpatient services that span a period time over 2 midnights. I reasonably expect this patient to be discharged or transferred within 96 hours [facility] Disposition - I would anticipate discharge to home after the hospital stay Primary care physician - Mone Bolanos M.D.
[2018-02-01] MEDS ORDERED: Ondansetron 4 MG Tab.DIS PO PRN (12:48)
[2018-02-01] MEDS ORDERED: Polyethylene Glycol 3350 Powder 17 GM Packet PO PRN (12:48)
[2018-02-01] MEDS ORDERED: Ondansetron 4 MG/2 ML SDV IV PRN (12:48)
[2018-02-01] MEDS ORDERED: oxyCODONE 5 MG Tab PO PRN (12:48)
[2018-02-01] MEDS: Lactated Ringers 1,000 ML IV SCH (13:01)
[2018-02-01] MEDS ORDERED: Lidocaine 1% with EPINEPHrine 1:100,000 50 ML MDV ONE (14:39)
[2018-02-01] MEDS ORDERED: Albuterol/Ipratropium 3.0-0.5 MG/3 ML Neb Soln NEB PRN (14:48)
[2018-02-01] MEDS ORDERED: ceFAZolin 2 GM in Premix Bag 1 BAG IV ONE (15:00)
[2018-02-01] MEDS ORDERED: Propofol 200 MG/20 ML SDV ONE (15:39)
[2018-02-01] MEDS ORDERED: fentaNYL 100 MCG/2 ML SDV ONE (15:39)
[2018-02-01] MEDS: Acetaminophen 325 MG Tab PO PRN ×2 (15:59→20:01)
--- NOTE | 2018-02-01 16:00 | PCM.SN ---
- Free Text/Narrative Note: 1600 Pt developed fever >101 in the OR prior to start of procedure. Suspect intra- abdominal source. Planning CT abdomen and will direct therapy based on results. UA did not suggest infection. Lungs clear. 1730 CT and CXR did not show evidence for infection. Temp coming down. Will monitor for now. Nick Bolanos MD
--- NOTE | 2018-02-01 17:01 | PN ---
DATE OF SERVICE: 02/01/2018 SUBJECTIVE: This 78-year-old white female presented to the emergency room today with heart rates of anywhere in the 30 to 40 range to 140. There were transient atrial fibrillation, atrial flutter, and normal sinus rhythm. Request was made for permanent cardiac pacemaker placement. I counseled her for this and she gave her informed consent to proceed. We brought her back to the operating room. When we arrived here, we checked her temperature, it was 101.3. The etiology of this is unknown. However, the pacemaker is canceled for now. I spoke with the hospitalist, who agrees and she is being returned to the intensive care unit. IMPRESSION: Tachy-savita syndrome, fever. PLAN: As per the hospitalist. Moustapha Mcgill MD /[id number]
[2018-02-01] MEDS: rOPINIRole 1 MG Tab PO SCH (20:34)
[2018-02-01] MEDS: Gabapentin 300 MG Cap PO SCH (20:34)
[2018-02-01] MEDS ORDERED: Non-Formulary Medication 1 Each (Gabapentin [Neurontin] 600 MG) PO SCH (21:00)
[2018-02-02] MEDS: Lactated Ringers 1,000 ML IV SCH (04:09)
--- NOTE | 2018-02-02 08:59 | CR ---
CHEST: Portable CLINICAL HISTORY:Hypoxia COMPARISON:2009 FINDINGS: Heart is mildly enlarged. Pulmonary vascularity is normal. There are atherosclerotic weaver es in the aorta. No infiltrates are seen. There are no pleural effusions. IMPRESSION: Myocardial megaly No acute cardiopulmonary process
[2018-02-02] MEDS ORDERED: Metoprolol Tartrate 25 MG Tab PO SCH (09:00)
[2018-02-02] MEDS ORDERED: Non-Formulary Medication 1 Each (Aspirin/Calcium Carbonate/Mag [Aspirin Buffered 325 Mg Ta PO SCH (09:00)
--- NOTE | 2018-02-02 09:11 | CR ---
CHEST: 2 view CLINICAL HISTORY:Hypoxia COMPARISON:Earlier same day FINDINGS: Heart size and pulmonary vascularity are normal. There are atherosclerotic changes in the aorta. Lung nayak are clear. There are old thoracolumbar compression deformities IMPRESSION: No acute cardiopulmonary process
--- NOTE | 2018-02-02 09:48 | PCM.PN ---
- General Info Date of Service: 02/02/18 Subjective Update: Ms. Gupta has continued to experience severe bradycardia with heart rates into the 30s as well as prolonged pauses of up to 5-6 seconds. She is asymptomatic while sitting upright in bed, denies chest pain, shortness of breath, or lightheadedness. Since yesterday afternoon there've been no recurrent temperature elevations and she is otherwise entirely asymptomatic. - Review of Systems General: Reports: Fever, Weakness. Denies: Chills Pulmonary: Reports: No Symptoms Cardiovascular: Reports: No Symptoms 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: Reports: No Symptoms Genitourinary: Reports: No Symptoms Skin: Reports: No Symptoms - Patient Data Vitals - Most Recent: Last Vital Signs Temp 97.6 F 02/02/18 08:00 Pulse 34 L 02/02/18 08:00 Resp 16 02/02/18 08:00 BP 132/49 L 02/02/18 08:00 Pulse Ox 99 02/02/18 08:00 Weight - Most Recent: 153 lb 0.013 oz I&O - Last 24 Hours: Intake & Output 02/01/18 02/02/18 02/02/18 22:59 06:59 14:59 Intake Total 240 1061 Output Total 275 100 200 Balance -35 961 -200 Lab Results Last 24 Hours: Laboratory Results - last 24 hr 02/01/18 02/02/18 02/02/18 Range/Units 12:48 05:53 05:53 WBC 8.2 (4.5-11.0) K/uL RBC 3.33 (3.30-5.50) M/uL Hgb 10.6 L (12.0-15.0) g/dL Hct 32.9 L (36.0-48.0) % MCV 99 H (80-98) fL MCH 32 H (27-31) pg MCHC 32 (32-36) % Plt Count 321 (150-400) K/uL Sodium 137 L (140-148) mmol/L Potassium 4.0 (3.6-5.2) mmol/L Chloride 101 (100-108) mmol/L Carbon Dioxide 30 (21-32) mmol/L Anion Gap 10.0 (5.0-14.0) mmol/L BUN 15 (7-18) mg/dL Creatinine 1.1 H (0.6-1.0) mg/dL Est Cr Clr Drug Dosing 33.34 mL/min Estimated GFR (MDRD) 48 L (>60) Glucose 105 (74-106) mg/dL Calcium 8.4 L (8.5-10.1) mg/dL C-Reactive Protein (0.0-0.3) mg/dL TSH, Ultra Sensitive 2.290 (0.358-3.740) uIU/mL 02/02/18 Range/Units 09:24 WBC (4.5-11.0) K/uL RBC (3.30-5.50) M/uL Hgb (12.0-15.0) g/dL Hct (36.0-48.0) % MCV (80-98) fL MCH (27-31) pg MCHC (32-36) % Plt Count (150-400) K/uL Sodium (140-148) mmol/L Potassium (3.6-5.2) mmol/L Chloride (100-108) mmol/L Carbon Dioxide (21-32) mmol/L Anion Gap (5.0-14.0) mmol/L BUN (7-18) mg/dL Creatinine (0.6-1.0) mg/dL Est Cr Clr Drug Dosing mL/min Estimated GFR (MDRD) (>60) Glucose (74-106) mg/dL Calcium (8.5-10.1) mg/dL C-Reactive Protein 9.30 H (0.0-0.3) mg/dL TSH, Ultra Sensitive (0.358-3.740) uIU/mL [place] Results Last 24 Hours: Microbiology 02/01/18 09:05 Aerobic Blood Culture - Preliminary Blood - Venous - Lab Draw NO GROWTH AFTER 1 DAY Anaerobic Blood Culture - Preliminary NO GROWTH AFTER 1 DAY 02/01/18 09:00 Aerobic Blood Culture - Preliminary Blood - Arm, Right NO GROWTH AFTER 1 DAY Anaerobic Blood Culture - Preliminary NO GROWTH AFTER 1 DAY Med Orders - Current: Current Medications Acetaminophen (Tylenol) 650 mg PO Q4H PRN PRN Reason: Pain (Mild 1-3)/fever Last Admin: 02/01/18 20:01 Dose: 650 mg Albuterol/Ipratropium (Duoneb 3.0-0.5 Mg/3 Ml) 3 ml NEB Q2H PRN PRN Reason: Cough Last Admin: 02/01/18 16:00 Dose: 3 ml Aspirin (Ecotrin) 325 mg PO DAILY [facility] Gabapentin (Neurontin) 600 mg PO TID [facility] Last Admin: 02/01/18 20:34 Dose: 600 mg Lactated Ringer's (Ringers, Lactated) 1,000 mls @ 75 mls/hr IV ASDIRECTED [facility] Ondansetron HCl (Zofran Odt) 4 mg PO Q6H PRN PRN Reason: Nausea able to take PO Ondansetron HCl (Zofran) 4 mg IV Q6H PRN PRN Reason: Nausea/Vomiting Oxycodone HCl (Oxycodone) 5 mg PO Q4H PRN PRN Reason: Pain (moderate 4-6) Polyethylene Glycol (Miralax) 17 gm PO DAILY PRN PRN Reason: Constipation Ranitidine HCl (Zantac) 150 mg PO BID [facility] Last Admin: 02/01/18 20:34 Dose: 150 mg Ropinirole HCl (Requip) 2 mg PO BEDTIME [facility] Last Admin: 02/01/18 20:34 Dose: 2 mg Senna/Docusate Sodium (Senna Plus) 1 tab PO BID PRN PRN Reason: Constipation Discontinued Medications Fentanyl (Sublimaze) Confirm Administered Dose 100 mcg .ROUTE .STK-MED ONE Stop: 02/01/18 15:40 Lactated Ringer's (Ringers, Lactated) 1,000 mls @ 999 mls/hr IV ASDIRECTED [facility] Last Admin: 02/01/18 09:01 Dose: 999 mls/hr Piperacillin/Tazobactam/ (Dextrose 4.5 gm/ Premix) 100 mls @ 200 mls/hr IV Q6H [facility] Last Admin: 02/01/18 09:25 Dose: 200 mls/hr Cefazolin Sodium/Dextrose 2 gm (/ Premix) 50 mls @ 100 mls/hr IV ONCALL ONE Stop: 02/01/18 15:29 Last Admin: 02/01/18 15:27 Dose: 100 mls/hr Lactated Ringer's (Ringers, Lactated) 1,000 mls @ 75 mls/hr IV ASDIRECTED [facility] Last Admin: 02/02/18 04:09 Dose: 75 mls/hr Lidocaine/Epinephrine (Xylocaine 1% With Epinephrine 1:100,000) Confirm Administered Dose 50 ml .ROUTE .STK-MED ONE Stop: 02/01/18 14:40 Metoprolol Tartrate (Lopressor) 25 mg PO DAILY TARUN Ondansetron HCl (Zofran) 4 mg IVPUSH ONETIME ONE Stop: 02/01/18 08:59 Last Admin: 02/01/18 09:03 Dose: 4 mg Propofol (Diprivan 20 Ml) Confirm Administered Dose 200 mg .ROUTE .STK-MED ONE Stop: 02/01/18 15:40 - Exam Quality Assessment: DVT Prophylaxis General: Alert, Oriented, Cooperative, No Acute Distress Lungs: Clear to Auscultation, Normal Respiratory Effort Cardiovascular: No Murmurs, Irregular Rhythm, Bradycardia GI/Abdominal Exam: Soft, Non-Tender, No Organomegaly, No Distention Extremities: Non-Tender, No Pedal Edema Skin: Warm, Dry - Problem List Review Problem List Initiated/Reviewed/Updated: Yes - My Orders Last 24 Hours: My Active Orders 02/02/18 09:39 Convert IV to [place] Lock [OM.PC] Routine 02/03/18 00:01 Lactated Ringers [Ringers, Lactated] 1,000 ml IV ASDIRECTED 02/03/18 05:00 BASIC METABOLIC PANEL,BMP [CHEM] Timed 02/03/18 Breakfast NPO After Midnight [Nothing per Oral After Midnight Diet] [DIET] - Plan Plan:: ASSESSMENT AND PLAN - Atrial fibrillation with tachybradycardia syndrome and symptomatic severe bradycardia - heart rates into the 30s with prolonged pauses of up to 5-6 seconds Patient has had presyncopal episodes as well as a syncopal episode over the past week. I believe permanent pacemaker is indicated given her current junctional escape rhythm as well as syncope. Pacemaker will also allow us to treat the tachycardic part of the tachybradycardia syndrome. Unfortunately just prior to permanent pacemaker placement yesterday she experienced temperature elevation and pacemaker placement was placed on hold -Permanent pacemaker placement tomorrow -ICU admission with cardiac monitoring -Transthoracic pacemaker patches in place -Hold beta nikki this morning Fever-white blood cell count is normal, likely related to recent viral gastroenteritis. No recurrent temperature elevation since last night and she is entirely asymptomatic other than the slow heart rates and lightheadedness. Evaluation including chest x-ray, urinalysis, and CT scan of the abdomen are all unremarkable. Has had no diarrhea over the past few days, nausea, or vomiting. Currently denies significant abdominal pain. -Monitor closely for recurrent fever Tobacco dependence - patient will need counseling about the risks of tobacco use. Stage III chronic kidney disease - kidney function stable. Maintenance issues - - DVT prophylaxis - mechanical with upcoming surgery - GI prophylaxis - not indicated - Nutrition - nothing by mouth until after surgery - [place]ente catheter - not indicated CODE STATUS - DNR/DNI Admission justification - This patient will be admitted for inpatient services and is medically appropriate meeting medical necessity for inpatient admission as outlined in my documentation. I reasonably expect the patient will require inpatient services that span a period time over 2 midnights. I reasonably expect this patient to be discharged or transferred within 96 hours [facility]. Disposition - I would anticipate discharge to home after the hospital stay Primary care physician - Mone LARSON
[2018-02-02] MEDS: Aspirin 325 MG Tab.EC PO SCH (09:54)
[2018-02-02] MEDS: Gabapentin 300 MG Cap PO SCH ×3 (09:54→20:16)
[2018-02-02] MEDS ORDERED: Lisinopril 10 MG Tab PO ONE (17:00)
[2018-02-02] MEDS: rOPINIRole 1 MG Tab PO SCH (20:16)
[2018-02-02] MEDS: Acetaminophen 325 MG Tab PO PRN (20:17)
[2018-02-03] MEDS: Lactated Ringers 1,000 ML IV SCH ×3 (00:04→07:29)
[2018-02-03] MEDS: Aspirin 325 MG Tab.EC PO SCH (08:40)
[2018-02-03] MEDS: Gabapentin 300 MG Cap PO SCH ×3 (08:40→21:02)
[2018-02-03] MEDS ORDERED: Albuterol/Ipratropium 3.0-0.5 MG/3 ML Neb Soln ONE (10:12)
[2018-02-03] MEDS ORDERED: Midazolam 1 MG/ML 2 ML SDV ONE (10:32)
[2018-02-03] MEDS ORDERED: fentaNYL 100 MCG/2 ML SDV ONE (10:32)
[2018-02-03] MEDS ORDERED: Propofol 200 MG/20 ML SDV ONE (10:32)
[2018-02-03] MEDS ORDERED: Bupivacaine 0.5% 50 ML MDV ONE (11:17)
[2018-02-03] MEDS ORDERED: Lidocaine 1% with EPINEPHrine 1:100,000 50 ML MDV ONE (11:17)
[2018-02-03] MEDS ORDERED: Linezolid 600 MG in Premix Bag 1 BAG IV ONE (11:19)
[2018-02-03] MEDS: ceFAZolin 2 GM in Premix Bag 1 BAG IV ONE ×2 (11:53→14:12)
[2018-02-03] MEDS ORDERED: Acetaminophen/HYDROcodone 325-5 MG Tab PO PRN (14:23)
[2018-02-03] MEDS ORDERED: Dextrose 5%-Lactated Ringers 1,000 ML IV SCH (14:30)
--- NOTE | 2018-02-03 14:57 | PCM.PN ---
- General Info Date of Service: 02/03/18 Subjective Update: Ms. Gupta is status post permanent pacemaker placement done earlier today for symptomatic bradycardia. She is doing well during the initial postoperative period, over the last 24 hours prior to pacemaker placement had ongoing difficulty with tachybradycardia syndrome. Episodes of rapid heart rate related to atrial fibrillation as well as episodes of very slow heart rate with significant pauses. Functional Status: Reports: Tolerating Diet, Urinating - Review of Systems General: Reports: Weakness. Denies: Fever, Chills Pulmonary: Reports: No Symptoms Cardiovascular: Reports: No Symptoms 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: Reports: No Symptoms - Patient Data Vitals - Most Recent: Last Vital Signs Temp 97.5 F 02/03/18 13:45 Pulse 60 02/03/18 13:45 Resp 20 02/03/18 14:45 BP 170/85 H 02/03/18 14:45 Pulse Ox 95 02/03/18 14:45 Weight - Most Recent: 158 lb 8 oz I&O - Last 24 Hours: Intake & Output 02/02/18 02/03/18 02/03/18 22:59 06:59 14:59 Intake Total 960 578 75 Output Total 4156 712 1809 Balance -115 203 -925 Lab Results Last 24 Hours: Laboratory Results - last 24 hr 02/03/18 Range/Units 05:10 Sodium 138 L (140-148) mmol/L Potassium 3.8 (3.6-5.2) mmol/L Chloride 103 (100-108) mmol/L Carbon Dioxide 28 (21-32) mmol/L Anion Gap 10.8 (5.0-14.0) mmol/L BUN 15 (7-18) mg/dL Creatinine 0.9 (0.6-1.0) mg/dL Est Cr Clr Drug Dosing 40.39 mL/min Estimated GFR (MDRD) > 60 (>60) Glucose 105 (74-106) mg/dL Calcium 8.4 L (8.5-10.1) mg/dL [place] Results Last 24 Hours: Microbiology 02/01/18 09:05 Aerobic Blood Culture - Preliminary Blood - Venous - Lab Draw NO GROWTH AFTER 2 DAYS Anaerobic Blood Culture - Preliminary NO GROWTH AFTER 2 DAYS 02/01/18 09:00 Aerobic Blood Culture - Preliminary Blood - Arm, Right NO GROWTH AFTER 2 DAYS Anaerobic Blood Culture - Preliminary NO GROWTH AFTER 2 DAYS Med Orders - Current: Current Medications Acetaminophen (Tylenol) 650 mg PO Q4H PRN PRN Reason: Pain (Mild 1-3)/fever Last Admin: 02/02/18 20:17 Dose: 650 mg Hydrocodone Bitart/Acetaminophen ([place] 325-5 Mg) 1 - 2 tab PO Q4H PRN PRN Reason: Pain Albuterol/Ipratropium (Duoneb 3.0-0.5 Mg/3 Ml) 3 ml NEB Q2H PRN PRN Reason: Cough Last Admin: 02/01/18 16:00 Dose: 3 ml Aspirin (Ecotrin) 325 mg PO DAILY [facility] Last Admin: 02/03/18 08:40 Dose: Not Given Diltiazem HCl (Cardizem) 30 mg PO Q6HR [facility] Gabapentin (Neurontin) 600 mg PO TID [facility] Last Admin: 02/03/18 14:13 Dose: Not Given Dextrose/Lactated Ringer's (Dextrose 5%-Lactated Ringers) 1,000 mls @ 100 mls/ hr IV ASDIRECTED [facility] Cefazolin Sodium/Dextrose 2 gm (/ Premix) 50 mls @ 100 mls/hr IV Q8H [facility] Stop: 02/04/18 10:29 Ondansetron HCl (Zofran Odt) 4 mg PO Q6H PRN PRN Reason: Nausea able to take PO Ondansetron HCl (Zofran) 4 mg IV Q6H PRN PRN Reason: Nausea/Vomiting Oxycodone HCl (Oxycodone) 5 mg PO Q4H PRN PRN Reason: Pain (moderate 4-6) Polyethylene Glycol (Miralax) 17 gm PO DAILY PRN PRN Reason: Constipation Ranitidine HCl (Zantac) 150 mg PO BID [facility] Last Admin: 02/03/18 08:40 Dose: Not Given Ropinirole HCl (Requip) 2 mg PO BEDTIME [facility] Last Admin: 02/02/18 20:16 Dose: 2 mg Senna/Docusate Sodium (Senna Plus) 1 tab PO BID PRN PRN Reason: Constipation Discontinued Medications Bupivacaine HCl (Marcaine 0.5%) Confirm Administered Dose 50 ml .ROUTE .STK-MED ONE Stop: 02/03/18 11:18 Last Admin: 02/03/18 12:25 Dose: 5 ml Fentanyl (Sublimaze) Confirm Administered Dose 100 mcg .ROUTE .STK-MED ONE Stop: 02/01/18 15:40 Fentanyl (Sublimaze) Confirm Administered Dose 100 mcg .ROUTE .STK-MED ONE Stop: 02/03/18 10:33 Lactated Ringer's (Ringers, Lactated) 1,000 mls @ 999 mls/hr IV ASDIRECTED [facility] Last Admin: 02/01/18 09:01 Dose: 999 mls/hr Piperacillin/Tazobactam/ (Dextrose 4.5 gm/ Premix) 100 mls @ 200 mls/hr IV Q6H [facility] Last Admin: 02/01/18 09:25 Dose: 200 mls/hr Cefazolin Sodium/Dextrose 2 gm (/ Premix) 50 mls @ 100 mls/hr IV ONCALL ONE Stop: 02/01/18 15:29 Last Admin: 02/01/18 15:27 Dose: 100 mls/hr Lactated Ringer's (Ringers, Lactated) 1,000 mls @ 75 [facility] Last Admin: 02/02/18 04:09 Dose: 75 mls/hr Lactated Ringer's (Ringers, Lactated) 1,000 mls @ 75 mls/hr IV ASDIRECTED [facility] Last Admin: 02/03/18 07:29 Dose: 75 mls/hr Cefazolin Sodium/Dextrose 2 gm (/ Premix) 50 mls @ 100 mls/hr IV ONETIME ONE Stop: 02/03/18 08:29 Last Admin: 02/03/18 14:12 Dose: Not Given Lidocaine/Epinephrine (Xylocaine 1% With Epinephrine 1:100,000) Confirm Administered Dose 50 ml .ROUTE .STK-MED ONE Stop: 02/01/18 14:40 Lidocaine/Epinephrine (Xylocaine 1% With Epinephrine 1:100,000) Confirm Administered Dose 50 ml .ROUTE .STK-MED ONE Stop: 02/03/18 11:18 Last Admin: 02/03/18 12:25 Dose: 5 ml Linezolid (Zyvox) 600 mg IRR ONETIME ONE Stop: 02/03/18 12:46 Last Admin: 02/03/18 12:45 Dose: 600 mg Lisinopril (Prinivil) 10 mg PO ONETIME ONE Stop: 02/02/18 17:01 Last Admin: 02/02/18 17:11 Dose: 10 mg Metoprolol Tartrate (Lopressor) 25 mg PO DAILY [facility] Last Admin: 02/02/18 13:18 Dose: Not Given Midazolam HCl (Versed 1 Mg/Ml) Confirm Administered Dose 2 mg .ROUTE .STK-MED ONE Stop: 02/03/18 10:33 Ondansetron HCl (Zofran) 4 mg IVPUSH ONETIME ONE Stop: 02/01/18 08:59 Last Admin: 02/01/18 09:03 Dose: 4 mg Propofol (Diprivan 20 Ml) Confirm Administered Dose 200 mg .ROUTE .STK-MED ONE Stop: 02/01/18 15:40 Propofol (Diprivan 20 Ml) Confirm Administered Dose 200 mg .ROUTE .STK-MED ONE Stop: 02/03/18 10:33 - Exam Quality Assessment: DVT Prophylaxis General: Alert, Oriented, Cooperative, No Acute Distress Lungs: Clear to Auscultation, Normal Respiratory Effort Cardiovascular: Regular Rate, Regular Rhythm, No Murmurs GI/Abdominal Exam: Soft, Non-Tender, No Organomegaly, No Distention Extremities: Non-Tender, No Pedal Edema - Problem List Review Problem List Initiated/Reviewed/Updated: Yes - My Orders Last 24 Hours: My Active Orders 02/03/18 16:00 Diltiazem IR [Cardizem] 30 mg PO Q6HR - Plan Plan:: ASSESSMENT AND PLAN - Atrial fibrillation with tachybradycardia syndrome and symptomatic severe bradycardia - heart rates into the 30s with prolonged pauses of up to 5-6 seconds. Status post permanent pacemaker placement earlier today which will allow us to place her on rate slowing medications for management of tachycardia associated with the atrial fibrillation -Continue cardiac monitoring -Diltiazem 30 mg by mouth every 6 hours -Consider anticoagulation when stable following pacemaker placement Fever-resolved -Monitor closely for recurrent fever Tobacco dependence - patient will need counseling about the risks of tobacco use. Stage III chronic kidney disease - kidney function stable. Maintenance issues - - DVT prophylaxis - mechanical with upcoming surgery - GI prophylaxis - not indicated - Nutrition - nothing by mouth until after surgery - Puente catheter - not indicated CODE STATUS - DNR/DNI Admission justification - This patient will be admitted for inpatient services and is medically appropriate meeting medical necessity for inpatient admission as outlined in my documentation. I reasonably expect the patient will require inpatient services that span a period time over 2 midnights. I reasonably expect this patient to be discharged or transferred within 96 hours [facility] Disposition - I would anticipate discharge to home after the hospital stay Primary care physician - Mone LARSON
[2018-02-03] MEDS ORDERED: Haloperidol Lactate 5 MG/ML SDV ONE (15:56)
[2018-02-03] MEDS ORDERED: Haloperidol Lactate 5 MG/ML SDV IV PRN (15:56)
[2018-02-03] MEDS: Acetaminophen 325 MG Tab PO PRN ×2 (17:04→21:02)
[2018-02-03] MEDS: Diltiazem IR 30 MG Tab PO SCH ×2 (17:05→21:02)
[2018-02-03] MEDS: ceFAZolin 2 GM in Premix Bag 1 BAG IV SCH (17:31)
[2018-02-03] MEDS: rOPINIRole 1 MG Tab PO SCH (21:02)
[2018-02-04] MEDS: ceFAZolin 2 GM in Premix Bag 1 BAG IV SCH (01:09)
[2018-02-04] MEDS: Diltiazem IR 30 MG Tab PO SCH (03:20)
[2018-02-04] MEDS: Gabapentin 300 MG Cap PO SCH (08:12)
[2018-02-04] MEDS: Aspirin 325 MG Tab.EC PO SCH (08:13)
[2018-02-04] MEDS ORDERED: Diltiazem 120 MG Cap.CD PO SCH (09:00)
[2018-02-04 09:10] VITALS: BP 176/62
--- NOTE | 2018-02-04 09:19 | PCM.DCSUM1 ---
Discharge Summary - Hospital Course Brief History: Ms. Gupta is a 78-year-old woman who was admitted through the emergency department after she experienced a syncopal episode at home secondary to very slow heart rate. Diagnosis: Stroke: No - Discharge Data Discharge Date: 02/04/18 Discharge Disposition: Home, Self-Care 01 Condition: Good - Discharge Diagnosis/Problem(s) (1) Atrial fibrillation with slow ventricular response SNOMED Code(s): 71011561, 663412366 ICD Code: I48.91 - UNSPECIFIED ATRIAL FIBRILLATION Status: Acute Current Visit: Yes (2) Tachy-savita syndrome SNOMED Code(s): 64777630 ICD Code: I49.5 - SICK SINUS SYNDROME Status: Acute Current Visit: Yes (3) CKD (chronic kidney disease), stage III SNOMED Code(s): 144939979 ICD Code: N18.3 - CHRONIC KIDNEY DISEASE, STAGE 3 (MODERATE) Status: Chronic Current Visit: Yes (4) CAD (coronary artery disease) SNOMED Code(s): 13286749 ICD Code: I25.10 - ATHSCL HEART DISEASE OF [place] CORONARY ARTERY W/O ANG PCTRS Status: Chronic Current Visit: No - Patient Summary/Data Consults: Consultations 02/01/18 12:48 Consult to Physician [CONS] Routine Consulting Provider: Moustapha Mcgill Call Completed to Consulting Physician: Yes Reason for Consult: sick sinus syndrome Person Notified: BDB Date Notified: 02/01/18 Special Instructions: pacemaker this afternoon Hospital Course: Mary Jane presents to the emergency room today with intermittent spells of dizziness. She describes them as a lightheaded/was a feeling and they seem to be most prominent on the left side of her head. She's had several spells over the past week. She reports yesterday she woke up on the floor after walking back from the mailbox. She's not sure how long she was laying on the floor. She felt fine after she woke up so she did not seek medical attention but she did note a bump on the back of her head. She's had some mild nausea and intermittent diarrhea throughout the week but no fevers or chills. Appetite has been okay for the most part but food seems to make the nausea little bit more intense. She reports mild generalized abdominal pain. The pain has not been bad enough for her to take anything for the pain. Pain is relatively constant even though mild and does not radiate. No obvious triggers to make it worse. She does not report a history of heart disease. Since arrival to the emergency room she has had intermittent episodes of tachycardia with heart rates in the 140s as well as episodes of bradycardia with heart rates down into the low 30s. Laboratory studies are fairly unremarkable at this point. As the emergency room stay has progressed she went into a junctional escape rhythm. There is concern for sick sinus syndrome with tachybradycardia syndrome. Pacemaker placement is planned. On admission the plan was to proceed with permanent pacemaker placement the same day, unfortunately when she was brought back to the operating room she was noted to have temperature elevation of 101.3. Pacemaker placement was canceled and she was returned to the intensive care unit for further monitoring and evaluation. Studies were obtained including CT scan of the abdomen, chest x-ray , and urinalysis showed no evidence of underlying infection. White blood cell count remained within normal range but her CRP was elevated. Was felt most likely that the elevated CRP and fever were secondary to a viral gastroenteritis given her recent symptoms of abdominal discomfort and diarrhea. She was monitored and additional 2 days and had no recurrent temperature elevation with total resolution of her abdominal symptoms. Permanent pacemaker was placed by Dr. Allen on the day prior to discharge. After pacemaker placement she was started on diltiazem for rate control because of her episodes of paroxysmal atrial fibrillation. She will be discharged home on diltiazem CD 120 mg by mouth daily. Her metoprolol will be discontinued at the time of discharge. Activity will be as tolerated and she will resume her usual diet. Follow-up appointment will be scheduled with her primary care provider within one week and a follow-up appointment will be scheduled with Dr. Allen for February 11. Consider initiation of anticoagulation at the time of follow -up appointment because of her paroxysmal atrial fibrillation. - Patient Instructions Diet: Usual Diet as Tolerated Activity: As Tolerated Other/Special Instructions: Please schedule follow-up appointment with Dionne Ortiz within one week. Please schedule follow-up appointment with Dr. Allen for February 11. Consider initiation of anticoagulation for atrial fibrillation, at the time of follow-up appointment. - Discharge Plan *PRESCRIPTION DRUG MONITORING PROGRAM REVIEWED*: Not Applicable *COPY OF PRESCRIPTION DRUG MONITORING REPORT IN PATIENT DESHAWN: Not Applicable Prescriptions/Med Rec: Diltiazem [Cardizem CD] 120 mg PO DAILY #30 cap.cd Home Medications: Home Meds Aspirin/Calcium Carbonate/Mag [Aspirin Buffered 325 mg Tab] 325 mg PO DAILY 09/09 [History] Multivitamin [Multi-Vitamin Daily] 1 each PO DAILY 04/28/13 [History] [place]-3/DHA/Epa/Fish Oil [Fish Oil 1,000 mg Softgel] 1 each PO DAILY 04/28/13 [ History] Ranitidine HCl [Ranitidine] 150 mg PO BID 04/28/13 [History] Gabapentin [Neurontin] 600 mg PO TID 12/23/15 [History] rOPINIRole HCl [Requip] 2 mg PO BEDTIME 12/23/15 [History] Biotin 1 tab PO DAILY 02/01/18 [History] Cholecalciferol (Vitamin D3) [Vitamin D3] 1,000 unit PO DAILY 02/01/18 [History] Meclizine [Antivert] 1 tab PO ASDIRECTED PRN 02/01/18 [History] Diltiazem [Cardizem CD] 120 mg PO DAILY #30 cap.cd 02/04/18 [Rx] Referrals: Mone Ortiz PA [Advanced RN Practitioner] - - Discharge Summary/Plan Comment DC Time >30 min.: No - Patient Data Vitals - Most Recent: Last Vital Signs Temp 98.2 F 02/04/18 07:22 Pulse 60 02/04/18 09:08 Resp 26 H 02/04/18 07:22 BP 176/62 H 02/04/18 09:08 Pulse Ox 92 L 02/04/18 03:55 Weight - Most Recent: 158 lb 8 oz I&O - Last 24 hours: Intake & Output 02/03/18 02/04/18 02/04/18 22:59 06:59 14:59 Intake Total 960 290 60 Balance 960 290 60 NENA Results - Last 24 hrs: Microbiology 02/01/18 09:05 Aerobic Blood Culture - Preliminary Blood - Venous - Lab Draw NO GROWTH AFTER 3 DAYS Anaerobic Blood Culture - Preliminary NO GROWTH AFTER 3 DAYS 02/01/18 09:00 Aerobic Blood Culture - Preliminary Blood - Arm, Right NO GROWTH AFTER 3 DAYS Anaerobic Blood Culture - Preliminary NO GROWTH AFTER 3 DAYS Med Orders - Current: Current Medications Acetaminophen (Tylenol) 650 mg PO Q4H PRN PRN Reason: Pain (Mild 1-3)/fever Last Admin: 02/03/18 21:02 Dose: 650 mg Hydrocodone Bitart/Acetaminophen ([place] 325-5 Mg) 1 - 2 tab PO Q4H PRN PRN Reason: Pain Last Admin: 02/03/18 15:08 Dose: 1 tab Albuterol/Ipratropium (Duoneb 3.0-0.5 Mg/3 Ml) 3 ml NEB Q2H PRN PRN Reason: Cough Last Admin: 02/01/18 16:00 Dose: 3 ml Aspirin (Ecotrin) 325 mg PO DAILY [facility] Last Admin: 02/04/18 08:13 Dose: 325 mg Diltiazem HCl (Cardizem Cd) 120 mg PO DAILY [facility] Last Admin: 02/04/18 09:08 Dose: 120 mg Gabapentin (Neurontin) 600 mg PO TID [facility] Last Admin: 02/04/18 08:12 Dose: 600 mg Haloperidol Lactate (Haldol) 1 mg IV Q1H PRN PRN Reason: AGITATION Cefazolin Sodium/Dextrose 2 gm (/ Premix) 50 mls @ 100 mls/hr IV Q8H [facility] Stop: 02/04/18 10:29 Last Admin: 02/04/18 01:09 Dose: 100 mls/hr Ondansetron HCl (Zofran Odt) 4 mg PO Q6H PRN PRN Reason: Nausea able to take PO Ondansetron HCl (Zofran) 4 mg IV Q6H PRN PRN Reason: Nausea/Vomiting Oxycodone HCl (Oxycodone) 5 mg PO Q4H PRN PRN Reason: Pain (moderate 4-6) Polyethylene Glycol (Miralax) 17 gm PO DAILY PRN PRN Reason: Constipation Ranitidine HCl (Zantac) 150 mg PO BID [facility] Last Admin: 02/04/18 08:14 Dose: 150 mg Ropinirole HCl (Requip) 2 mg PO BEDTIME [facility] Last Admin: 02/03/18 21:02 Dose: 2 mg Senna/Docusate Sodium (Senna Plus) 1 tab PO BID PRN PRN Reason: Constipation Discontinued Medications Bupivacaine HCl (Marcaine 0.5%) Confirm Administered Dose 50 ml .ROUTE .[facility]-MED ONE Stop: 02/03/18 11:18 Last Admin: 02/03/18 12:25 Dose: 5 ml Diltiazem HCl (Cardizem) 30 mg PO Q6HR [facility] Last Admin: 02/04/18 03:20 Dose: 30 mg Fentanyl (Sublimaze) Confirm Administered Dose 100 mcg .ROUTE .STK-MED ONE Stop: 02/01/18 15:40 Fentanyl (Sublimaze) Confirm Administered Dose 100 mcg .ROUTE .STK-MED ONE Stop: 02/03/18 10:33 Haloperidol Lactate (Haldol) Confirm Administered Dose 5 mg .ROUTE .STK-MED ONE Stop: 02/03/18 15:57 Last Admin: 02/03/18 16:15 Dose: Not Given Lactated Ringer's (Ringers, Lactated) 1,000 mls @ 999 [facility] Last Admin: 02/01/18 09:01 Dose: 999 mls/hr Piperacillin/Tazobactam/ (Dextrose 4.5 gm/ Premix) 100 mls @ 200 mls/hr IV Q6H [facility] Last Admin: 02/01/18 09:25 Dose: 200 mls/hr Cefazolin Sodium/Dextrose 2 gm (/ Premix) 50 mls @ 100 mls/hr IV ONCALL ONE Stop: 02/01/18 15:29 Last Admin: 02/01/18 15:27 Dose: 100 mls/hr Lactated Ringer's (Ringers, Lactated) 1,000 mls @ 75 [facility]ls[facility] Last Admin: 02/02/18 04:09 Dose: 75 mls/hr Lactated Ringer's (Ringers, Lactated) 1,000 mls @ 75 [facility]ls[facility] Last Admin: 02/03/18 07:29 Dose: 75 mls/hr Cefazolin Sodium/Dextrose 2 gm (/ Premix) 50 mls @ 100 mls/hr IV ONETIME ONE Stop: 02/03/18 08:29 Last Admin: 02/03/18 14:12 Dose: Not Given Dextrose/Lactated Ringer's (Dextrose 5%-Lactated Ringers) 1,000 mls @ 100 mls/ [facility] Last Admin: 02/03/18 15:08 Dose: 100 mls/hr Lidocaine/Epinephrine (Xylocaine 1% With Epinephrine 1:100,000) Confirm Administered Dose 50 ml .ROUTE .STK-MED ONE Stop: 02/01/18 14:40 Lidocaine/Epinephrine (Xylocaine 1% With Epinephrine 1:100,000) Confirm Administered Dose 50 ml .ROUTE .STK-MED ONE Stop: 02/03/18 11:18 Last Admin: 02/03/18 12:25 Dose: 5 ml Linezolid (Zyvox) 600 mg IRR ONETIME ONE Stop: 02/03/18 12:46 Last Admin: 02/03/18 12:45 Dose: 600 mg Lisinopril (Prinivil) 10 mg PO ONETIME ONE Stop: 02/02/18 17:01 Last Admin: 02/02/18 17:11 Dose: 10 mg Metoprolol Tartrate (Lopressor) 25 mg PO DAILY [facility] Last Admin: 02/02/18 13:18 Dose: Not Given Midazolam HCl (Versed 1 Mg/Ml) Confirm Administered Dose 2 mg .ROUTE .STK-MED ONE Stop: 02/03/18 10:33 Ondansetron HCl (Zofran) 4 mg IVPUSH ONETIME ONE Stop: 02/01/18 08:59 Last Admin: 02/01/18 09:03 Dose: 4 mg Propofol (Diprivan 20 Ml) Confirm Administered Dose 200 mg .ROUTE .STK-MED ONE Stop: 02/01/18 15:40 Propofol (Diprivan 20 Ml) Confirm Administered Dose 200 mg .ROUTE .STK-MED ONE Stop: 02/03/18 10:33 - Exam General: Reports: Alert, Oriented, Cooperative, No Acute Distress Lungs: Reports: Clear to Auscultation, Normal Respiratory Effort Cardiovascular: Reports: Regular Rate, Regular Rhythm, No Murmurs GI/Abdominal Exam: Soft, Non-Tender, No Organomegaly, No Distention *Q Meaningful Use (DIS) - VTE *Q VTE Pharmacological Contraindications *Q: Patient Scheduled Surgery
--- NOTE | 2018-02-04 13:12 | DISCH ---
FINAL DIAGNOSES: Sick sinus syndrome with symptomatic bradycardia. SECONDARY DIAGNOSES: 1. Transient fever likely related to gastroenteritis. 2. History of hyperlipidemia. 3. History of hypertension. 4. Chronic back pain. 5. History of transient ischemic attack. OPERATIVE PROCEDURE: This was done on 02/03/2018; insertion of transvenous dual-chamber cardiac pacemaker. SUMMARY: This is a 78-year-old admitted with symptomatic bradycardia. After initial evaluation, she was noted to have frequent pauses of up to 8 seconds. Initially, she was found to have a fever which was felt to most likely be some sort of a viral gastroenteritis which transiently cleared and then had the pacemaker inserted on 02/03/2018. The pacemaker function has been satisfactory since that time. The pacemaker will be in a DDDR mode with a lower rate of 60 and upper rate of 110 and appears to be functioning well at this point. She will be discharged home with instructions not to lift her shoulder above the horizontal level on the left side which was the side of the pacemaker for one month; otherwise, activity will be ad jerman. Medications will be the same as prior to her admission per review by Dr. Cosme, plus Tylenol as needed for pain.
[2018-02-06 18:08] LABS: IGG P18 AB. Present (.); IGG P23 AB. Present (.); IGG P28 AB. Absent (.); IGG P30 AB. Absent (.); IGG P39 AB. Absent (.); IGG P41 AB. Present (.); IGG P45 AB. Absent (.); IGG P58 AB. Absent (.); IGG P66 AB. Absent (.); IGG P93 AB. Absent (.); IGM P23 AB. Present (.); IGM P39 AB. Present (.); IGM P41 AB. Present (.); LYME IGG WB INTERP. Negative (.); LYME IGM WB INTERP. Positive (.)
--- NOTE | 2018-02-09 13:28 | OR ---
DATE OF PROCEDURE: 02/03/2018 PREOPERATIVE DIAGNOSIS: Tachy-savita syndrome with periods of marked bradycardia. POSTOPERATIVE DIAGNOSIS: Tachy-savita syndrome with periods of marked bradycardia. PROCEDURE PERFORMED: Insertion of dual-chamber cardiac pacemaker (53081). ANESTHESIA: Local plus IV sedation. INDICATIONS FOR PROCEDURE: This is a 78-year-old presenting with symptomatic bradycardia and was noted to have a rate as low as in the 30s. After preoperative evaluation and discussion, she wished to proceed with a pacemaker placement. Potential risks of the procedure including bleeding, infection, vascular or pulmonary injury, possibility of the pacemaker becoming nonfunctional, as well as possibility of cardiac, pulmonary, septic, or hemorrhagic complications leading to were discussed, and the patient wishes to proceed. DETAILS OF PROCEDURE: The patient was taken to the operating room and placed in a supine position. After IV sedation was administered, the upper chest and neck areas were prepped and draped and the left subclavian area was anesthetized with 1% lidocaine. Left subclavian vein was cannulated and a guidewire passed. Some additional local anesthetic was then placed and a transverse infraclavicular incision was made, carried down through the skin and subcutaneous tissue and through the pectoralis major fascia. A subfascial pocket was then bluntly created, and a 2nd guidewire was then passed via the subclavian vein. The Medtronic leads, which were both screw-in type leads were then both placed. The atrial lead was a Medtronic model #[id number] and the right ventricular lead was a Medtronic model #[id number]. The ventricular site was initially placed, the location where it was screwed in had good stimulation thresholds with a stimulation threshold of 1.1 volts, impedance of 873 ohms, and R-wave sensing of 15.2 millivolts. The right atrial lead was then similarly placed in the initial location, likewise was good with stimulation threshold of 0.8 volts, impedance of 494 ohms, and P-wave sensing of 2.8 millivolts. Both leads were tested with 10 volts and no diaphragmatic pacing was identified. The leads were then sutured in position. A Medtronic model #[id number] was then placed with immediate adequate pacing and sensing functions noted. The redundant lead and posterior lead were then placed in the pocket. The incision was irrigated with a Zyvox-containing saline solution, which was added intermittently throughout the procedure. The incision was then closed in 2 layers of 3-0 Vicryl stitch deep and a 4-0 Vicryl subcuticular stitch. Dressing was applied. The patient was taken to the recovery room in satisfactory condition. Zhen Allen MD /[id number]
== END 2018-02-04 10:01 | disposition home or self-care (01) | DRG 244 ==
LOC: JP.ED 08:28 → JP.MS 11:14 → JP.ICU 11:27
PROVIDERS: ADMIT Internal Medicine; ATTEND Hospitalist
PROC: 0JH606Z Insertion of Pacemaker, Dual Chamber into Chest Subcutaneous Tissue and Fascia, Open Approach (ICD-10-PCS; principal; 2018-02-03)
PROC: 02H63JZ Insertion of Pacemaker Lead into Right Atrium, Percutaneous Approach (ICD-10-PCS; 2018-02-03)
PROC: 02HK3JZ Insertion of Pacemaker Lead into Right Ventricle, Percutaneous Approach (ICD-10-PCS; 2018-02-03)
DX: I48.0 Paroxysmal atrial fibrillation (principal); I49.5 Sick sinus syndrome; R00.1 Bradycardia, unspecified; Z66 Do not resuscitate; F17.200 Nicotine dependence, unspecified, uncomplicated; I12.9 Hypertensive chronic kidney disease with stage 1 through stage 4 chronic kidney disease, or unspecified chronic kidney disease; N18.3 Chronic kidney disease, stage 3 (moderate); Z86.73 Personal history of transient ischemic attack (TIA), and cerebral infarction without residual deficits; W19.XXXA Unspecified fall, initial encounter; Y92.009 Unspecified place in unspecified non-institutional (private) residence as the place of occurrence of the external cause; A08.4 Viral intestinal infection, unspecified; R50.9 Fever, unspecified; E78.5 Hyperlipidemia, unspecified; M19.90 Unspecified osteoarthritis, unspecified site; M54.9 Dorsalgia, unspecified; G89.29 Other chronic pain; H54.7 Unspecified visual loss; K57.90 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 of intestine, part unspecified, without perforation or abscess without bleeding; Z79.82 Long term (current) use of aspirin; Z88.8 Allergy status to other drugs, medicaments and biological substances; R55 Syncope and collapse; R42 Dizziness and giddiness
CPT/HCPCS: 36415; 71045 ×2; 80053; 81001; 82550; 83605; 85025; 86140; 87040 ×2; 96365; 96375; 99285 ×2; J2405; J2543; J7120; 71046; 71046-26; 74176; 80048; 83735; 84100; 84443; 85027; 86617-59; 86618; 93005; A9270-GY; C1898; J0690; J2020; J2250; J2704; J3010; J3490; J7042; J7620

== ENCOUNTER 2020-01-03 12:39 | Inpatient (IN) | payer MEDICARE, OTHER ==
--- NOTE | 2020-01-03 13:23 | EDM.PDOC ---
ED HPI GENERAL MEDICAL PROBLEM - General Chief Complaint: Chest Pain Stated Complaint: MEDICAL VIA AMBULANCE Time Seen by Provider: 01/03/20 13:21 Source of Information: Reports: Patient History Limitations: Reports: No Limitations - History of Present Illness INITIAL COMMENTS - FREE TEXT/NARRATIVE: pt arrived with mid chest pain. She has had upper abdomanal pain and often feels nauseated when she eats. The abdomanal pain started about 1 month ago. Onset: Gradual Duration: Hour(s): Location: Reports: Chest, Abdomen Associated Symptoms: Reports: Nausea/Vomiting, Shortness of Breath, Weakness pain Pain Score (Numeric/FACES): 76 - Related Data Allergies Allergy/AdvReac Type Severity Reaction Status Date / Time [id number] Reductase AdvReac Severe sore Verified 01/03/20 12:45 Inhibitor muscles painful to walk Home Meds: Home Meds Aspirin/Calcium Carbonate/Mag [Aspirin Buffered 325 mg Tab] 325 mg PO DAILY 09/09 [History] Gabapentin [Neurontin] 600 mg PO TID 12/23/15 [History] rOPINIRole HCl [Requip] 2 mg PO BEDTIME 12/23/15 [History] Biotin 1 tab PO DAILY 02/01/18 [History] Cholecalciferol (Vitamin D3) [Vitamin D3] 1,000 unit PO DAILY 02/01/18 [History] Meclizine [Antivert] 1 tab PO ASDIRECTED PRN 02/01/18 [History] Diltiazem [Cardizem CD] 120 mg PO DAILY #30 cap.cd 02/04/18 [Rx] Past Medical History HEENT History: Reports: Impaired Vision Cardiovascular History: Reports: High Cholesterol, Hypertension 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 History: Reports: 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: Musculoskeletal History: Reports: Back Pain, Chronic, Osteoarthritis Neurological History: Reports: TIA - Infectious Disease History Infectious Disease History: Reports: Measles, Mumps - Past Surgical History HEENT Surgical History: Reports: Cataract Surgery Cardiovascular Surgical History: Reports: Other (See Below) Other Cardiovascular Surgeries/Procedures: angiogram GI Surgical History: Reports: Appendectomy, Hernia Repair/Other Female Surgical History: Reports: Hysterectomy Social & Family History - Family History Cardiac: Reports: Other (See Below) - Tobacco Use Smoking Status *Q: Current Every Day Smoker Years of Tobacco use: 50 Packs/Tins Daily: 0.5 Used Tobacco, but Quit: No - Caffeine Use Caffeine Use: Reports: Coffee ED ROS GENERAL - Review of Systems Review Of Systems: See Below Constitutional: Reports: Weakness, Decreased Appetite HEENT: Reports: Other (pt has a sore throat and feels like she has acid that comes up in her throat ) Respiratory: Reports: Shortness of Breath Cardiovascular: Reports: Chest Pain, Other ( this seemes to be coming up from her abdoman. ) Endocrine: Reports: No Symptoms GI/Abdominal: Reports: Abdominal Pain, Decreased Appetite, Nausea : Reports: No Symptoms Musculoskeletal: Reports: No Symptoms Skin: Reports: No Symptoms Neurological: Reports: No Symptoms Psychiatric: Reports: No Symptoms ED EXAM, GENERAL - Physical Exam Exam: See Below Free Text/Narrative:: pt arrived with pain in the upper abdoman and pain in the kleft chest and left shoulder blade. She has been having pain in the upper abdoman. She has done some vomiting. Her appetite is not good. Exam Limited By: No Limitations General Appearance: Alert, Anxious, Moderate Distress Ears: Normal TMs Nose: Normal Inspection Throat/Mouth: Normal Inspection Head: Atraumatic Neck: Normal Inspection Respiratory/Chest: No Respiratory Distress Cardiovascular: Regular Rate, Rhythm GI/Abdominal: Other (pt is tender in the upper abdoman. ) (Female) Exam: Deferred Rectal (Female) Exam: Deferred, Other (pt has not had a bm for 4-5 days. ) Back Exam: Normal Inspection Extremities: Normal Inspection Neurological: Alert, Oriented, Normal Cognition Psychiatric: Normal Affect Course - Vital Signs Last Recorded V/S: Last Vital Signs Temp 36.0 C L 01/03/20 12:42 Pulse 59 L 01/03/20 15:52 Resp 20 01/03/20 15:52 BP 163/69 H 01/03/20 15:52 Pulse Ox 97 01/03/20 15:52 - Orders/Labs/Meds Orders: Active Orders 24 hr Category Date Time Status EKG Documentation Completion [RC] ASDIRECTED Care 01/03/20 12:41 Active CULTURE STREP A CONFIRMATION [RM] Stat Lab 01/03/20 13:20 Results STREP SCRN A RAPID W CULT CONF [RM] Stat Lab 01/03/20 13:20 Results TROPONIN I [CHEM] Stat Lab 01/03/20 15:51 Received Sodium Chloride 0.9% [Normal Saline] 1,000 ml Med 01/03/20 15:00 Active IV ASDIRECTED EKG 12 Lead [EK] Routine Ther 01/03/20 12:41 Ordered Medication Orders Sodium Chloride (Normal Saline) 1,000 mls @ 400 mls/hr IV ASDIRECTED TARUN Last Admin: 01/03/20 15:37 Dose: 400 mls/hr Labs: Laboratory Tests 01/03/20 01/03/20 01/03/20 Range/Units 12:58 12:58 13:56 WBC 8.5 (4.5-11.0) K/uL RBC 4.05 (3.30-5.50) M/uL Hgb 12.9 D (12.0-15.0) g/dL Hct 39.6 (36.0-48.0) % MCV 98 (80-98) fL MCH 32 H (27-31) pg MCHC 33 (32-36) % Plt Count 277 (150-400) K/uL Neut % (Auto) 70 H (36-66) % Lymph % (Auto) 18 L (24-44) % Leslie % (Auto) 10 H (2-6) % Eos % (Auto) 1 L (2-4) % Baso % (Auto) 1 (0-1) % Sodium 142 (140-148) mmol/L Potassium 4.5 (3.6-5.2) mmol/L Chloride 104 (100-108) mmol/L Carbon Dioxide 29 (21-32) mmol/L Anion Gap 8.9 (5.0-14.0) mmol/L BUN 20 H (7-18) mg/dL Creatinine 1.2 H (0.6-1.0) mg/dL Est Cr Clr Drug Dosing 28.68 mL/min Estimated GFR (MDRD) 43 L (>60) Glucose 93 (74-106) mg/dL Calcium 8.4 L (8.5-10.1) mg/dL Total Bilirubin 0.3 D (0.2-1.0) mg/dL AST 16 (15-37) U/L ALT 18 D (12-78) U/L Alkaline Phosphatase 62 (46-116) U/L Troponin I (0.000-0.056) ng/mL C-Reactive Protein 1.24 H (0.0-0.3) mg/dL Total Protein 7.0 (6.4-8.2) g/dL Albumin 3.4 (3.4-5.0) g/dL Globulin 3.6 H (2.3-3.5) g/dL Albumin/Globulin Ratio 0.9 L (1.2-2.2) Lipase (73-393) U/L Urine Color (YELLOW) Urine Appearance (CLEAR) Urine pH (5.0-8.0) Ur Specific [place] (1.008-1.030) Urine Protein (NEGATIVE) mg/dL Urine Glucose (UA) (NEGATIVE) mg/dL Urine Ketones (NEGATIVE) mg/dL Urine Occult Blood (NEGATIVE) Urine Nitrite (NEGATIVE) Urine Bilirubin (NEGATIVE) Urine Urobilinogen (0.2-1.0) EU/dL Ur Leukocyte Esterase (NEGATIVE) Urine RBC (0-5) Urine WBC (0-5) Ur Epithelial Cells Amorphous Sediment Urine Bacteria Urine Mucus 01/03/20 01/03/20 01/03/20 Range/Units 13:58 14:05 14:05 WBC (4.5-11.0) K/uL RBC (3.30-5.50) M/uL Hgb (12.0-15.0) g/dL Hct (36.0-48.0) % MCV (80-98) fL MCH (27-31) pg MCHC (32-36) % Plt Count (150-400) K/uL Neut % (Auto) (36-66) % Lymph % (Auto) (24-44) % Leslie % (Auto) (2-6) % Eos % (Auto) (2-4) % Baso % (Auto) (0-1) % Sodium (140-148) mmol/L Potassium (3.6-5.2) mmol/L Chloride (100-108) mmol/L Carbon Dioxide (21-32) mmol/L Anion Gap (5.0-14.0) mmol/L BUN (7-18) mg/dL Creatinine (0.6-1.0) mg/dL Est Cr Clr Drug Dosing mL/min Estimated GFR (MDRD) (>60) Glucose (74-106) mg/dL Calcium (8.5-10.1) mg/dL Total Bilirubin (0.2-1.0) mg/dL AST (15-37) U/L ALT (12-78) U/L Alkaline Phosphatase (46-116) U/L Troponin I < 0.017 (0.000-0.056) ng/mL C-Reactive Protein (0.0-0.3) mg/dL Total Protein (6.4-8.2) g/dL Albumin (3.4-5.0) g/dL Globulin (2.3-3.5) g/dL Albumin/Globulin Ratio (1.2-2.2) Lipase 55 L (73-393) U/L Urine Color Yellow (YELLOW) Urine Appearance Slightly cloudy A (CLEAR) Urine pH 6.0 (5.0-8.0) Ur Specific [place] 1.015 (1.008-1.030) Urine Protein Negative (NEGATIVE) mg/dL Urine Glucose (UA) Normal (NEGATIVE) mg/dL Urine Ketones Negative (NEGATIVE) mg/dL Urine Occult Blood Trace (NEGATIVE) Urine Nitrite Negative (NEGATIVE) Urine Bilirubin Negative (NEGATIVE) Urine Urobilinogen 0.2 (0.2-1.0) EU/dL Ur Leukocyte Esterase Negative (NEGATIVE) Urine RBC 5-10 H (0-5) Urine WBC 0-5 (0-5) Ur Epithelial Cells Few Amorphous Sediment Not seen Urine Bacteria Few Urine Mucus Not seen Meds: Medications Generic Name Dose Route Start Last Admin Trade Name Freq PRN Reason Stop Dose Admin Sodium Chloride 1,000 mls @ 400 mls/hr 01/03/20 15:00 01/03/20 15:37 Normal Saline IV 400 mls/hr ASDIRECTED TARUN Administration Discontinued Medications Generic Name Dose Route Start Last Admin Trade Name Freq PRN Reason Stop Dose Admin Ketorolac Tromethamine 15 mg 01/03/20 15:37 01/03/20 15:43 Toradol IVPUSH 01/03/20 15:38 15 mg ONETIME ONE Administration - Re-Assessments/Exams Free Text/Narrative Re-Assessment/Exam: 01/03/20 15:24 pt had normal labs. Her ekg did not show acute findings. She had a normal trop. In questioning her further she feels like the chest pain could be coming up from the abdoman. She has had the GI symptoms for about 1 month. 01/03/20 16:01 cat scan of the abdoman shows thickening of the stomach and a infiltrating mass is possible. Departure - Departure Time of Disposition: 16:02 Disposition: Admitted As Inpatient 66 Condition: Fair Clinical Impression: Gastric wall thickening, Gallstones, Atypical chest pain Referrals: PCP,None [Primary Care Provider] - Forms: ED Department Discharge Care Plan Goals: admit to Dr Cosme Sepsis Event Note - Evaluation Sepsis Screening Result: No Definite Risk - Focused Exam Vital Signs: Vital Signs Temp Pulse Resp BP Pulse Ox 01/03/20 15:52 59 L 20 163/69 H 97 01/03/20 15:09 60 15 160/76 H 98 01/03/20 15:00 60 17 160/76 H 97 01/03/20 12:42 36.0 C L 74 20 165/72 H 98 Date Exam was Performed: 01/03/20 Time Exam was Performed: 16:00 - My Orders Last 24 Hours: My Active Orders 01/03/20 12:41 EKG Documentation Completion [RC] ASDIRECTED EKG 12 Lead [EK] Routine 01/03/20 13:20 CULTURE STREP A CONFIRMATION [RM] Stat STREP SCRN A RAPID W CULT CONF [RM] Stat 01/03/20 15:00 Sodium Chloride 0.9% [Normal Saline] 1,000 ml IV ASDIRECTED 01/03/20 15:51 TROPONIN I [CHEM] Stat - Assessment/Plan Last 24 Hours: My Active Orders 01/03/20 12:41 EKG Documentation Completion [RC] ASDIRECTED EKG 12 Lead [EK] Routine 01/03/20 13:20 CULTURE STREP A CONFIRMATION [RM] Stat STREP SCRN A RAPID W CULT CONF [RM] Stat 01/03/20 15:00 Sodium Chloride 0.9% [Normal Saline] 1,000 ml IV ASDIRECTED 01/03/20 15:51 TROPONIN I [CHEM] Stat
--- NOTE | 2020-01-03 14:23 | CR ---
CHEST: Portable 01/03/2020 at 1:13 CLINICAL HISTORY:SOB COMPARISON:2018 FINDINGS: Heart size and pulmonary vascular are normal. There are atherosclerotic changes in the aorta.. Patient has a permanent cardiac pacer. No infiltrates are seen. Impression: Permanent cardiac pacer No acute cardiopulmonary process
--- NOTE | 2020-01-03 14:49 | US ---
Abdomen Ltd CLINICAL HISTORY: Epigastric pain COMPARISON: CT 2018. TECHNIQUE: Real-time images were obtained through the right upper quadrant. FINDINGS: The liver is free of mass or biliary dilatation. It has a normal echotexture. The gallbladder contains multiple stones. The common bile duct measures 4 mm. The pancreas is is partially obscured. No mass is identified. The right kidney has a normal appearance. The distal aorta is ectatic measuring 2.7 x 2.7 cm The IVC is normal. IMPRESSION: Cholelithiasis with no biliary dilatation Distal aortic ectasia
[2020-01-03] MEDS ORDERED: Sodium Chloride 0.9% 1,000 ML IV SCH (15:00)
[2020-01-03] MEDS ORDERED: Ketorolac 30 MG/ML SDV IVPUSH ONE (15:37)
--- NOTE | 2020-01-03 15:45 | CT ---
Abdomen Pelvis wo Cont CLINICAL HISTORY: Upper abdominal pain COMPARISON: 2018. TECHNIQUE: Axial tomographic images are obtained from the dome of the diaphragm to the pubic symphysis without IV contrast enhancement. No oral contrast was used. Auto dosage reduction and iterative reconstruction techniques employed. FINDINGS: The lung bases show some mild patchy interstitial infiltrate or fibrosis in the right lower lobe. This is slightly progressed from 2018 The liver shows no mass or biliary dilatation. The gallbladder contains gallstones seen on recent ultrasound. There is some thickening of the stomach. There is some stranding in the perigastric fat. There are some lymph nodes in the celiac trunk distribution. The spleen has a normal size and shape. The pancreas shows no mass or inflammatory change. There is some fatty infiltration. There is enlargement of the left adrenal gland likely due to low-attenuation nodule or nodules. The kidneys contain multiple calcifications in the renal pelvis. These appear to be vascular in nature.. The aorta shows moderate atheromatous calcification. There is ectasia of the distal aorta with a maximum AP dimension of 2.7 cm. There is diffuse calcification throughout the visceral vessels and iliac arteries. There is some sigmoid diverticulosis. Small intestinal configuration is nonacute. There is no suspicious retroperitoneal adenopathy. IMPRESSION: Diffuse gastric thickening with some inflammatory stranding in the surrounding fat medially. A diffuse infiltrating process is not absolutely excluded. Findings should be correlated with endoscopy Multiple small lymph nodes in the left upper quadrant medial to the stomach in the celiac trunk these may be reactive nodes
--- NOTE | 2020-01-03 16:16 | PCM.HP.2 ---
H&P History of Present Illness - General Date of Service: 01/03/20 Admit Problem/Dx: Admission Diagnosis/Problem Admission Diagnosis/Problem Vomiting Source of Information: Patient, Provider, RN Notes Reviewed History Limitations: Reports: No Limitations - History of Present Illness Initial Comments - Free Text/Narative: Ms. Gupta is a 79-year-old woman who was admitted to observation status through the emergency department for further evaluation and management of nausea, vomiting, dehydration, epigastric and chest pain. She was feeling well until about a month ago, since then has had progressive symptoms of pain occurring in her left chest as well as the center of the chest and radiating to her back. She also has associated sore throat and pain in the epigastric region. Pain seems to be worse after eating and does not seem to be related to exertion. Appetite has been diminished because of the pain. She has had no hematemesis hematochezia or melena. She has never had similar symptoms in the past. No history of peptic ulcer disease gastritis, esophagitis, or reflux. Ultrasound of the abdomen did show evidence of gallstones but no evidence of gallbladder wall thickening or ductal dilatation. Labs are for the most part unremarkable. CT scan of the abdomen pelvis did show thickening of the gastric wall, with some associated stranding and appearance of reactive lymph nodes. pain Pain Score (Numeric/FACES): 76 - Related Data Allergies/Adverse Reactions: Allergies Allergy/AdvReac Type Severity Reaction Status Date / Time Sfgstpb-Xta-Hva Reductase AdvReac Severe sore Verified 01/03/20 12:45 Inhibitor muscles painful to walk Home Medications: Home Meds Aspirin/Calcium Carbonate/Mag [Aspirin Buffered 325 mg Tab] 325 mg PO DAILY 09/09 [History] Gabapentin [Neurontin] 600 mg PO TID 12/23/15 [History] rOPINIRole HCl [Requip] 2 mg PO BEDTIME 12/23/15 [History] Biotin 1 tab PO DAILY 02/01/18 [History] Cholecalciferol (Vitamin D3) [Vitamin D3] 1,000 unit PO DAILY 02/01/18 [History] Meclizine [Antivert] 1 tab PO ASDIRECTED PRN 02/01/18 [History] Diltiazem [Cardizem CD] 120 mg PO DAILY #30 cap.cd 02/04/18 [Rx] Past Medical History HEENT History: Reports: Impaired Vision Cardiovascular History: Reports: High Cholesterol, Hypertension 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 History: Reports: 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: Musculoskeletal History: Reports: Back Pain, Chronic, Osteoarthritis Neurological History: Reports: TIA - Infectious Disease History Infectious Disease History: Reports: Measles, Mumps - Past Surgical History HEENT Surgical History: Reports: Cataract Surgery Cardiovascular Surgical History: Reports: Other (See Below) Other Cardiovascular Surgeries/Procedures: angiogram GI Surgical History: Reports: Appendectomy, Hernia Repair/Other Female Surgical History: Reports: Hysterectomy Social & Family History - Family History Cardiac: Reports: Other (See Below) - Tobacco Use Smoking Status *Q: Current Every Day Smoker Years of Tobacco use: 50 Packs/Tins Daily: 0.5 Used Tobacco, but Quit: No - Caffeine Use Caffeine Use: Reports: Coffee H&P Review of Systems - Review of Systems: Review Of Systems: See Below General: Reports: Malaise, Weakness, Decreased Appetite HEENT: Reports: No Symptoms Pulmonary: Reports: No Symptoms Cardiovascular: Reports: Chest Pain. Denies: Palpitations, Dyspnea on Exertion , Orthopnea, PND, Edema, Lightheadedness, Syncope 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: Reports: Abdominal Pain, Constipation, Nausea, Vomiting. Denies: Diarrhea, Difficulty Swallowing, Distension, Hematemesis, Hematochezia, Melena Genitourinary: Reports: No Symptoms Musculoskeletal: Reports: No Symptoms Skin: Reports: No Symptoms Psychiatric: Reports: No Symptoms Neurological: Reports: No Symptoms Hematologic/Lymphatic: Reports: No Symptoms Immunologic: Reports: No Symptoms Exam - Exam Exam: See Below - Vital Signs Vital Signs: Last Vital Signs Temp 96.8 F L 01/03/20 12:42 Pulse 59 L 01/03/20 15:52 Resp 20 01/03/20 15:52 BP 163/69 H 01/03/20 15:52 Pulse Ox 97 01/03/20 15:52 Weight: 140 lb - Exam Quality Assessment: DVT Prophylaxis General: Alert, Oriented, Cooperative, Moderate Distress HEENT: Conjunctiva Clear, Hearing Intact, Mucosa Moist & [place], Normal Nasal Septum, Posterior Pharynx Clear, Pupils Equal Neck: Supple, Trachea Midline, +2 Carotid Pulse wo Bruit Lungs: Clear to Auscultation, Normal Respiratory Effort, Decreased Breath Sounds Cardiovascular: Regular Rate, Regular Rhythm, Normal S1, Normal S2. No: Systolic Murmur, Diastolic Murmur GI/Abdominal Exam: Soft, No Organomegaly, Tender. No: Distended, Guarding, Rigid, Rebound Back Exam: Normal Inspection, Full Range of Motion Extremities: Non-Tender, No Pedal Edema Skin: Warm, Dry, Intact Neurological: Cranial Nerves Intact, Strength Equal Bilateral, Normal Speech, Normal Tone, Sensation Intact. No: Focal Deficit Neuro Extensive - Mental Status: Alert, Oriented x3, Normal Mood/Affect, Normal Cognition, Memory Intact - Patient Data Lab Results Last 24 hrs: Laboratory Results - last 24 hr 01/03/20 01/03/20 01/03/20 Range/Units 12:58 12:58 13:56 WBC 8.5 (4.5-11.0) K/uL RBC 4.05 (3.30-5.50) M/uL Hgb 12.9 D (12.0-15.0) g/dL Hct 39.6 (36.0-48.0) % MCV 98 (80-98) fL MCH 32 H (27-31) pg MCHC 33 (32-36) % Plt Count 277 (150-400) K/uL Neut % (Auto) 70 H (36-66) % Lymph % (Auto) 18 L (24-44) % [place] % (Auto) 10 H (2-6) % Eos % (Auto) 1 L (2-4) % Baso % (Auto) 1 (0-1) % Sodium 142 (140-148) mmol/L Potassium 4.5 (3.6-5.2) mmol/L Chloride 104 (100-108) mmol/L Carbon Dioxide 29 (21-32) mmol/L Anion Gap 8.9 (5.0-14.0) mmol/L BUN 20 H (7-18) mg/dL Creatinine 1.2 H (0.6-1.0) mg/dL Est Cr Clr Drug Dosing 28.68 mL/min Estimated GFR (MDRD) 43 L (>60) Glucose 93 (74-106) mg/dL Calcium 8.4 L (8.5-10.1) mg/dL Total Bilirubin 0.3 D (0.2-1.0) mg/dL AST 16 (15-37) U/L ALT 18 D (12-78) U/L Alkaline Phosphatase 62 (46-116) U/L Troponin I (0.000-0.056) ng/mL C-Reactive Protein 1.24 H (0.0-0.3) mg/dL Total Protein 7.0 (6.4-8.2) g/dL Albumin 3.4 (3.4-5.0) g/dL Globulin 3.6 H (2.3-3.5) g/dL Albumin/Globulin Ratio 0.9 L (1.2-2.2) Lipase (73-393) U/L Urine Color (YELLOW) Urine Appearance (CLEAR) Urine pH (5.0-8.0) Ur Specific [place] (1.008-1.030) Urine Protein (NEGATIVE) mg/dL Urine Glucose (UA) (NEGATIVE) mg/dL Urine Ketones (NEGATIVE) mg/dL Urine Occult Blood (NEGATIVE) Urine Nitrite (NEGATIVE) Urine Bilirubin (NEGATIVE) Urine Urobilinogen (0.2-1.0) EU/dL Ur Leukocyte Esterase (NEGATIVE) Urine RBC (0-5) Urine WBC (0-5) Ur Epithelial Cells Amorphous Sediment Urine Bacteria Urine Mucus 01/03/20 01/03/20 01/03/20 Range/Units 13:58 14:05 14:05 WBC (4.5-11.0) K/uL RBC (3.30-5.50) M/uL Hgb (12.0-15.0) g/dL Hct (36.0-48.0) % MCV (80-98) fL MCH (27-31) pg MCHC (32-36) % Plt Count (150-400) K/uL Neut % (Auto) (36-66) % Lymph % (Auto) (24-44) % [place] % (Auto) (2-6) % Eos % (Auto) (2-4) % Baso % (Auto) (0-1) % Sodium (140-148) mmol/L Potassium (3.6-5.2) mmol/L Chloride (100-108) mmol/L Carbon Dioxide (21-32) mmol/L Anion Gap (5.0-14.0) mmol/L BUN (7-18) mg/dL Creatinine (0.6-1.0) mg/dL Est Cr Clr Drug Dosing mL/min Estimated GFR (MDRD) (>60) Glucose (74-106) mg/dL Calcium (8.5-10.1) mg/dL Total Bilirubin (0.2-1.0) mg/dL AST (15-37) U/L ALT (12-78) U/L Alkaline Phosphatase (46-116) U/L Troponin I < 0.017 (0.000-0.056) ng/mL C-Reactive Protein (0.0-0.3) mg/dL Total Protein (6.4-8.2) g/dL Albumin (3.4-5.0) g/dL Globulin (2.3-3.5) g/dL Albumin/Globulin Ratio (1.2-2.2) Lipase 55 L (73-393) U/L Urine Color Yellow (YELLOW) Urine Appearance Slightly cloudy A (CLEAR) Urine pH 6.0 (5.0-8.0) Ur Specific [place] 1.015 (1.008-1.030) Urine Protein Negative (NEGATIVE) mg/dL Urine Glucose (UA) Normal (NEGATIVE) mg/dL Urine Ketones Negative (NEGATIVE) mg/dL Urine Occult Blood Trace (NEGATIVE) Urine Nitrite Negative (NEGATIVE) Urine Bilirubin Negative (NEGATIVE) Urine Urobilinogen 0.2 (0.2-1.0) EU/dL Ur Leukocyte Esterase Negative (NEGATIVE) Urine RBC 5-10 H (0-5) Urine WBC 0-5 (0-5) Ur Epithelial Cells Few Amorphous Sediment Not seen Urine Bacteria Few Urine Mucus Not seen Result Diagrams: 01/03/20 12:58 01/03/20 12:58 [place] Results Last 24 hrs: Microbiology 01/03/20 13:20 Group A Streptococcus Rapid Screen - Final Throat NEGATIVE STREP A SCREEN REFERENCE RANGE: NEGATIVE Sepsis Event Note - Evaluation Sepsis Screening Result: No Definite Risk - Focused Exam Vital Signs: Vital Signs Temp Pulse Resp BP Pulse Ox 01/03/20 15:52 59 L 20 163/69 H 97 01/03/20 15:09 60 15 160/76 H 98 01/03/20 15:00 60 17 160/76 H 97 01/03/20 12:42 96.8 F L 74 20 165/72 H 98 Date Exam was Performed: 01/03/20 Time Exam was Performed: 16:42 *Q Meaningful Use (ADM) - VTE Risk Assess *Q Each Risk Factor Represents 1 Point: Obesity ( BMI > 25 kg/m2) Total Score 1 Point Risk Factors: 1 Each Risk Factor Represents 2 Points: None Total Score 2 Point Risk Factors: 0 Each Risk Factor Represents 3 Points: Age 75 Years or Greater Total Score 3 Point Risk Factors: 3 Each Risk Factor Represents 5 Points: None Total Score 5 Point Risk Factors: 0 Venous Thromboembolism Risk Factor Score *Q: 4 Problem List Initiated/Reviewed/Updated: Yes Orders Last 24hrs: Active Orders 24 hr Category Date Time Status Patient Status Manage Transfer [TRANSFER] Routine ADT 01/03/20 16:04 Ordered EKG Documentation Completion [RC] ASDIRECTED Care 01/03/20 12:41 Active CULTURE STREP A CONFIRMATION [RM] Stat Lab 01/03/20 13:20 Results STREP SCRN A RAPID W CULT CONF [RM] Stat Lab 01/03/20 13:20 Results TROPONIN I [CHEM] Stat Lab 01/03/20 15:51 Received Sodium Chloride 0.9% [Normal Saline] 1,000 ml Med 01/03/20 15:00 Active IV ASDIRECTED Resuscitation Status Routine Resus Stat 01/03/20 16:05 Ordered EKG 12 Lead [EK] Routine Ther 01/03/20 12:41 Ordered Medication Orders Sodium Chloride (Normal Saline) 1,000 mls @ 400 mls/hr IV ASDIRECTED TARUN Last Admin: 01/03/20 15:37 Dose: 400 mls/hr Assessment/Plan Comment:: ASSESSMENT AND PLAN EPIGASTRIC PAIN, CHEST PAIN, NAUSEA AND VOMITING-symptoms sound to be consistent with reflux with probable esophagitis and gastritis. No exertional component to the symptoms have been noted. Evidence of gastric inflammation identified on CT scan. -Clear liquid diet, n.p.o. after midnight -IV fluids for hydration -Pain and nausea medication as needed -Protonix 40 mg IV every 12 hours -Consult Dr. Allen for EGD in a.m. -Serial troponin levels MAINTENANCE ISSUES -DVT prophylaxis; SCUDs -GI prophylaxis; Protonix as above -Puente catheter; not indicated -Nutrition; clear liquid diet, n.p.o. after midnight -Nicotine dependence; not indicated CODE STATUS-DNR/DNI ADMISSION STATUS-this patient will be admitted to observation status, expect no more than a one night hospital stay for evaluation and management of problems as outlined above. DISPOSITION-anticipate discharge to home after the hospital stay. PRIMARY CARE PROVIDER-Dr. Teresa - Mortality Measure Prognosis:: Good
[2020-01-03] MEDS ORDERED: Polyethylene Glycol 3350 Powder 17 GM Packet PO PRN (16:57)
[2020-01-03] MEDS ORDERED: Acetaminophen 325 MG Tab PO PRN (16:57)
[2020-01-03] MEDS ORDERED: Sodium Chloride 0.9% 10 ML Syringe FLUSH PRN (16:57)
[2020-01-03] MEDS ORDERED: Ondansetron 4 MG/2 ML SDV IV PRN (16:57)
[2020-01-03] MEDS: Pantoprazole 40 MG Vial IV SCH (18:13)
[2020-01-03] MEDS: Gabapentin 300 MG Cap*PT OWN MED PO SCH (20:31)
[2020-01-03] MEDS: Sodium Chloride 0.9% 1,000 ML IV SCH (20:34)
[2020-01-03] MEDS ORDERED: rOPINIRole 1 MG Tab PO SCH (21:00)
[2020-01-03] MEDS ORDERED: Non-Formulary Medication 1 Each (Gabapentin [Neurontin] 600 MG) PO SCH (21:00)
[2020-01-03] MEDS ORDERED: Gabapentin 300 MG Cap PO SCH (21:00)
[2020-01-04] MEDS: Pantoprazole 40 MG Vial IV SCH ×2 (05:10→16:29)
[2020-01-04] MEDS: Sodium Chloride 0.9% 1,000 ML IV SCH ×2 (05:11→10:28)
[2020-01-04] MEDS ORDERED: Etomidate 2 MG/ML 10 ML SDV ONE ×2 (07:45→09:46)
[2020-01-04] MEDS ORDERED: Non-Formulary Medication 1 Each (Aspirin/Calcium Carbonate/Mag [Aspirin Buffered 325 Mg Ta PO SCH (09:00)
[2020-01-04] MEDS ORDERED: Diltiazem 120 MG Cap.CD PO SCH (09:00)
[2020-01-04] MEDS ORDERED: Aspirin 325 MG Tab.EC PO SCH (09:00)
[2020-01-04] MEDS ORDERED: Aluminum Hydroxide/Magnesium Hydroxide/Simethicone Susp 30 ML Cup PO PRN (10:41)
[2020-01-04] MEDS: DILTIAZEM 180 MG PO SCH (10:43)
[2020-01-04] MEDS: Aspirin 81 MG Tab.EC PO SCH (10:44)
[2020-01-04] MEDS: Gabapentin 300 MG Cap*PT OWN MED PO SCH ×3 (10:44→20:25)
[2020-01-04] MEDS: Sucralfate Suspension 1 GM/10 ML Cup PO SCH ×3 (11:55→20:24)
[2020-01-04] MEDS: Famotidine 20 MG Tab PO SCH ×2 (11:55→20:24)
--- NOTE | 2020-01-04 12:40 | CONS ---
DATE OF SERVICE: 01/04/2020 REFERRING PHYSICIAN: CONSULTING PHYSICIAN: Alison Moran PA-C REASON FOR CONSULTATION: Mary Jane is a 79-year-old female who, Sean Cosme MD, asked surgery department to have a consultation in regard to CT scan of abdomen and pelvis that showed some thickening of the gastric wall associated with stranding and appearance of reactive lymph nodes. An ultrasound did show evidence of gallstones, but no gallbladder wall thickening or ductal dilatation. Mary Jane Gupta is scheduled for an EGD. Case to follow this morning. She has been n.p.o. HISTORY: Mary Jane is a pleasant 79-year-old female who was admitted to [facility] for observation after being evaluated in the emergency department. She presented to the emergency department with nausea, vomiting, dehydration, epigastric pain, and chest pain. She states this started about a month ago and progressively gotten worse. Appetite has been decreased. No other associated signs and symptoms. Pain this morning is a 3/10. ALLERGIES: TO STATINS, CAUSES SORE MUSCLES. CURRENT MEDICATIONS: Were reviewed. See EMR. PAST MEDICAL HISTORY: HEENT, impaired vision. Cardiovascular, hypercholesterolemia and hypertension. GI, history of diverticulosis. 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 Musculoskeletal, reports chronic back pain and osteoarthritis. Neurologic, history of a TIA. PAST SURGICAL HISTORY: Bilateral cataract surgery. Cardiovascular, has had an angiogram. GI; appendectomy, hernia repair, and hysterectomy. SOCIAL HISTORY: Does smoke. Caffeine use, drinks coffee anywhere from 2 to 4 cups a day. REVIEW OF SYSTEMS: CONSTITUTIONAL: Denies any fever, chills, or night sweats. Reports weakness and decreased appetite. HEENT: Negative. PULMONARY: Denies any shortness of breath or cough. CARDIOVASCULAR: Reports chest pain, but no palpitations. GI: As above. : Negative. MUSCULOSKELETAL: Chronic back pain. SKIN: Negative for rash. PSYCHIATRIC: No insomnia, depression, or anxiety. NEUROLOGIC: No headaches, dizziness, or loss of coordination. PHYSICAL EXAMINATION: GENERAL: Mary Jane Gupta is a pleasant 79-year-old female. VITAL SIGNS: Height is 4 feet 11 inches. Weight is 140 pounds. BMI is 28. TPR at 0729 is 98, 59, and 20. Blood pressure is 127/65. O2 by pulse oximetry is 97%. HEENT: Negative. NECK: Supple. HEART: Regular rate and rhythm without murmur, gallop, or rub. LUNGS: Clear to auscultation in all 4 nayak. GI: Minimal midepigastric abdominal pain, otherwise negative. Soft and nontender. BACK: Negative. EXTREMITIES: Without peripheral edema. SKIN: Warm and dry. No rash. NEURO: Cranial nerves 2 through 12 intact. PSYCHIATRIC: Mood and affect appropriate. ASSESSMENT: 1. Epigastric abdominal pain. 2. Nausea and vomiting. PLAN: 1. EGD scheduled. Case to follow this morning. 2. We will evaluate p.r.n. and orders will be written post EGD. Thank you for this consultation. Alison Moran PA-C /[id number]
--- NOTE | 2020-01-04 14:04 | PCM.PN ---
- General Info Date of Service: 01/04/20 Subjective Update: Ms. Gupta underwent EGD per her Allen this morning. She was found to have a large gastric ulcer, suspicious for malignancy, biopsies are pending. She was also noted to have evidence of gastritis and esophagitis. Continues to have symptoms of pain, thus far is tolerating a full liquid diet. Functional Status: Reports: Tolerating Diet, Ambulating, Urinating - Review of Systems General: Reports: No Symptoms Pulmonary: Reports: No Symptoms Cardiovascular: Reports: Chest Pain. Denies: Palpitations, Dyspnea on Exertion , Orthopnea, PND, Edema, Lightheadedness 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: Reports: Abdominal Pain, Decreased Appetite, Difficulty Swallowing - Patient Data Vitals - Most Recent: Last Vital Signs Temp 98.0 F 01/04/20 10:26 Pulse 66 01/04/20 10:26 Resp 16 01/04/20 10:26 BP 165/74 H 01/04/20 10:26 Pulse Ox 99 01/04/20 10:26 Weight - Most Recent: 140 lb I&O - Last 24 Hours: Intake & Output 01/03/20 01/04/20 01/04/20 22:59 06:59 14:59 Intake Total 480 1475 400 Balance 480 1475 400 Lab Results Last 24 Hours: Laboratory Results - last 24 hr 01/03/20 01/03/20 01/03/20 Range/Units 13:56 13:58 14:05 WBC (4.5-11.0) K/uL RBC (3.30-5.50) M/uL Hgb (12.0-15.0) g/dL Hct (36.0-48.0) % MCV (80-98) fL MCH (27-31) pg MCHC (32-36) % Plt Count (150-400) K/uL Neut % (Auto) (36-66) % Lymph % (Auto) (24-44) % [place] % (Auto) (2-6) % Eos % (Auto) (2-4) % Baso % (Auto) (0-1) % Sodium (140-148) mmol/L Potassium (3.6-5.2) mmol/L Chloride (100-108) mmol/L Carbon Dioxide (21-32) mmol/L Anion Gap (5.0-14.0) mmol/L BUN (7-18) mg/dL Creatinine (0.6-1.0) mg/dL Est Cr Clr Drug Dosing mL/min Estimated GFR (MDRD) (>60) Glucose (74-106) mg/dL Calcium (8.5-10.1) mg/dL Troponin I < 0.017 (0.000-0.056) ng/mL C-Reactive Protein 1.24 H (0.0-0.3) mg/dL Lipase (73-393) U/L Urine Color Yellow (YELLOW) Urine Appearance Slightly cloudy A (CLEAR) Urine pH 6.0 (5.0-8.0) Ur Specific [place] 1.015 (1.008-1.030) Urine Protein Negative (NEGATIVE) mg/dL Urine Glucose (UA) Normal (NEGATIVE) mg/dL Urine Ketones Negative (NEGATIVE) mg/dL Urine Occult Blood Trace (NEGATIVE) Urine Nitrite Negative (NEGATIVE) Urine Bilirubin Negative (NEGATIVE) Urine Urobilinogen 0.2 (0.2-1.0) EU/dL Ur Leukocyte Esterase Negative (NEGATIVE) Urine RBC 5-10 H (0-5) Urine WBC 0-5 (0-5) Ur Epithelial Cells Few Amorphous Sediment Not seen Urine Bacteria Few Urine Mucus Not seen 01/03/20 01/03/20 01/03/20 Range/Units 14:05 15:51 22:00 WBC (4.5-11.0) K/uL RBC (3.30-5.50) M/uL Hgb (12.0-15.0) g/dL Hct (36.0-48.0) % MCV (80-98) fL MCH (27-31) pg MCHC (32-36) % Plt Count (150-400) K/uL Neut % (Auto) (36-66) % Lymph % (Auto) (24-44) % [place] % (Auto) (2-6) % Eos % (Auto) (2-4) % Baso % (Auto) (0-1) % Sodium (140-148) mmol/L Potassium (3.6-5.2) mmol/L Chloride (100-108) mmol/L Carbon Dioxide (21-32) mmol/L Anion Gap (5.0-14.0) mmol/L BUN (7-18) mg/dL Creatinine (0.6-1.0) mg/dL Est Cr Clr Drug Dosing mL/min Estimated GFR (MDRD) (>60) Glucose (74-106) mg/dL Calcium (8.5-10.1) mg/dL Troponin I < 0.017 < 0.017 (0.000-0.056) ng/mL C-Reactive Protein (0.0-0.3) mg/dL Lipase 55 L (73-393) U/L Urine Color (YELLOW) Urine Appearance (CLEAR) Urine pH (5.0-8.0) Ur Specific [place] (1.008-1.030) Urine Protein (NEGATIVE) mg/dL Urine Glucose (UA) (NEGATIVE) mg/dL Urine Ketones (NEGATIVE) mg/dL Urine Occult Blood (NEGATIVE) Urine Nitrite (NEGATIVE) Urine Bilirubin (NEGATIVE) Urine Urobilinogen (0.2-1.0) EU/dL Ur Leukocyte Esterase (NEGATIVE) Urine RBC (0-5) Urine WBC (0-5) Ur Epithelial Cells Amorphous Sediment Urine Bacteria Urine Mucus 01/04/20 01/04/20 Range/Units 04:05 04:05 WBC 6.1 (4.5-11.0) K/uL RBC 4.12 (3.30-5.50) M/uL Hgb 13.3 (12.0-15.0) g/dL Hct 39.8 (36.0-48.0) % MCV 97 (80-98) fL MCH 32 H (27-31) pg MCHC 33 (32-36) % Plt Count 138 L (150-400) K/uL Neut % (Auto) 61 (36-66) % Lymph % (Auto) 26 (24-44) % [place] % (Auto) 9 H (2-6) % Eos % (Auto) 4 (2-4) % Baso % (Auto) 1 (0-1) % Sodium 142 (140-148) mmol/L Potassium 4.6 (3.6-5.2) mmol/L Chloride 110 H (100-108) mmol/L Carbon Dioxide 22 (21-32) mmol/L Anion Gap 14.6 H (5.0-14.0) mmol/L BUN 13 (7-18) mg/dL Creatinine 0.8 (0.6-1.0) mg/dL Est Cr Clr Drug Dosing 40.96 mL/min Estimated GFR (MDRD) > 60 (>60) Glucose 78 (74-106) mg/dL Calcium 7.6 L (8.5-10.1) mg/dL Troponin I (0.000-0.056) ng/mL C-Reactive Protein (0.0-0.3) mg/dL Lipase (73-393) U/L Urine Color (YELLOW) Urine Appearance (CLEAR) Urine pH (5.0-8.0) Ur Specific [place] (1.008-1.030) Urine Protein (NEGATIVE) mg/dL Urine Glucose (UA) (NEGATIVE) mg/dL Urine Ketones (NEGATIVE) mg/dL Urine Occult Blood (NEGATIVE) Urine Nitrite (NEGATIVE) Urine Bilirubin (NEGATIVE) Urine Urobilinogen (0.2-1.0) EU/dL Ur Leukocyte Esterase (NEGATIVE) Urine RBC (0-5) Urine WBC (0-5) Ur Epithelial Cells Amorphous Sediment Urine Bacteria Urine Mucus [place] Results Last 24 Hours: Microbiology 01/03/20 13:20 Quick Strep Confirmation Culture - Preliminary Throat NO GROUP A STREP ISOLATED REFERENCE RANGE: NEGATIVE Group A Streptococcus Rapid Screen - Final NEGATIVE STREP A SCREEN REFERENCE RANGE: NEGATIVE Med Orders - Current: Current Medications Acetaminophen (Tylenol) 650 mg PO Q4H PRN PRN Reason: Pain (Mild 1-3)/fever Last Admin: 01/04/20 05:21 Dose: 650 mg Al Hydroxide/Mg Hydroxide (Mag-Al Plus) 30 ml PO Q4H PRN PRN Reason: Pain Aspirin (Halfprin) 81 mg PO DAILY [facility] Last Admin: 01/04/20 10:44 Dose: 81 mg Diltiazem HCl (Cardizem Cd) 180 mg PO DAILY [facility] Last Admin: 01/04/20 10:43 Dose: 180 mg Famotidine (Pepcid) 20 mg PO BID [facility] Last Admin: 01/04/20 11:55 Dose: 20 mg Gabapentin (Neurontin) 600 mg PO TID [facility] Last Admin: 01/04/20 10:44 Dose: 600 mg Ondansetron HCl (Zofran) 4 mg IV Q4H PRN PRN Reason: Nausea/Vomiting Pantoprazole Sodium (Protonix Iv) 40 mg IV Q12H [facility] Last Admin: 01/04/20 05:10 Dose: 40 mg Polyethylene Glycol (Miralax) 17 gm PO DAILY PRN PRN Reason: Constipation Sodium Chloride (Saline Flush) 10 ml FLUSH ASDIRECTED PRN PRN Reason: Keep Vein Open Sucralfate (Carafate) 1 gm PO QIDACANDBED [facility] Last Admin: 01/04/20 11:55 Dose: 1 gm Discontinued Medications Aspirin (Ecotrin) 325 mg PO DAILY [facility] Diltiazem HCl (Cardizem Cd) 120 mg PO DAILY [facility] Etomidate (Amidate) Confirm Administered Dose 20 mg .ROUTE .STK-MED ONE Stop: 01/04/20 07:46 Etomidate (Amidate) Confirm Administered Dose 20 mg .ROUTE .STK-MED ONE Stop: 01/04/20 09:47 Gabapentin (Neurontin) 600 mg PO TID [facility] Sodium Chloride (Normal Saline) 1,000 mls @ 400 mls/hr IV ASDIRECTED [facility] Last Admin: 01/03/20 15:37 Dose: 400 mls/hr Sodium Chloride (Normal Saline) 1,000 mls @ 125 mls/hr IV ASDIRECTED [facility] Last Admin: 01/04/20 10:28 Dose: 125 mls/hr Ketorolac Tromethamine (Toradol) 15 mg IVPUSH ONETIME ONE Stop: 01/03/20 15:38 Last Admin: 01/03/20 15:43 Dose: 15 mg Ropinirole HCl (Requip) 2 mg PO BEDTIME [facility] Last Admin: 01/03/20 20:07 Dose: Not Given - Exam Quality Assessment: DVT Prophylaxis General: Alert, Oriented, Cooperative, Moderate Distress Lungs: Clear to Auscultation, Normal Respiratory Effort Cardiovascular: Regular Rate, Regular Rhythm, No Murmurs GI/Abdominal Exam: Soft, No Organomegaly, Tender. No: Distended, Guarding, Rigid, Rebound Extremities: Non-Tender, No Pedal Edema Sepsis Event Note - Evaluation Sepsis Screening Result: No Definite Risk - Focused Exam Vital Signs: Vital Signs Temp Temp Pulse Pulse Resp BP Pulse Ox 01/04/20 10:26 98.0 F 66 16 165/74 H 99 01/04/20 10:10 61 16 122/65 98 01/04/20 09:55 97.2 F 65 16 147/60 H 95 01/04/20 09:50 63 16 139/62 97 06/09/20 09:45 61 16 152/63 H 98 01/04/20 09:40 67 16 152/62 H 96 01/04/20 09:35 96.8 F L 64 16 144/62 H 96 01/04/20 07:29 98 F 59 L 20 127/65 97 01/04/20 03:57 97.7 F 60 16 138/61 93 L Date Exam was Performed: 01/04/20 Time Exam was Performed: 14:00 - Problem List Review Problem List Initiated/Reviewed/Updated: Yes - My Orders Last 24 Hours: My Active Orders 01/03/20 16:05 Resuscitation Status Routine 01/03/20 16:57 Ambulate [RC] QID Cardiac Monitoring [RC] .As Directed Height and Weight [RC] DAILY Intake and Output [RC] QSHIFT Notify Provider Consults [RC] ASDIRECTED Notify Provider Vital Signs [RC] ASDIRECTED Oxygen Therapy [RC] PRN Peripheral IV Care [RC] . DIRECTED Up With Assistance [RC] ASDIRECTED Up to Chair [RC] QID VTE/DVT Education [RC] Per Unit Routine Vital Signs [RC] Q4H Consult to Physician [CONS] Routine Acetaminophen [Tylenol] 650 mg PO Q4H PRN Ondansetron [Zofran] 4 mg IV Q4H PRN Sodium Chloride 0.9% [Saline Flush] 10 ml FLUSH ASDIRECTED PRN polyethylene glycoL 3350 [MiraLAX] 17 gm PO DAILY PRN Peripheral IV Insertion Adult [OM.PC] Routine Sequential Compression Device [OM.PC] Per Unit Routine VTE Pharmacological Contraindications [AST] Per Unit Routine 01/03/20 17:30 Pantoprazole [ProTONIX IV] 40 mg IV Q12H 01/03/20 21:00 Gabapentin [Neurontin] 600 mg PO TID 01/04/20 09:00 Aspirin [Halfprin] 81 mg PO DAILY Diltiazem [Cardizem CD] 180 mg PO DAILY 01/04/20 10:40 Dietary Supplements [RC] BIDAC 01/04/20 10:41 Alum Hydrox/Mag Hydrox/Simeth [Mag-Al Plus] 30 ml PO Q4H PRN 01/04/20 10:42 Patient Status [ADT] Routine 01/04/20 10:45 Famotidine [Pepcid] 20 mg PO BID 01/04/20 11:00 Sucralfate [Carafate] 1 gm PO QIDACANDBED 01/04/20 12:48 Convert IV to Saline Lock [OM.PC] Routine - Plan Plan:: ASSESSMENT AND PLAN GASTRIC ULCER, ESOPHAGITIS, GASTRITIS-biopsies are pending from gastric ulcer, continues to experience pain. Serial troponin levels are normal -Full liquid diet -Saline lock IV -Pain and nausea medication as needed -Protonix 40 mg IV every 12 hours -Maalox as needed -Carafate slurry 1 g 4 times daily -Pepcid 20 mg twice daily -Biopsies pending -Surgical follow-up per Dr. Allen MAINTENANCE ISSUES -DVT prophylaxis; SCUDs -GI prophylaxis; Protonix as above -Puente catheter; not indicated -Nutrition; full liquid diet -Nicotine dependence; not indicated CODE STATUS-DNR/DNI ADMISSION STATUS-this patient will be admitted to observation status, expect no more than a one night hospital stay for evaluation and management of problems as outlined above. DISPOSITION-anticipate discharge to home after the hospital stay. PRIMARY CARE PROVIDER-Dr. Teresa
[2020-01-05] MEDS: Pantoprazole 40 MG Vial IV SCH (05:13)
[2020-01-05] MEDS: Sucralfate Suspension 1 GM/10 ML Cup PO SCH ×2 (07:15→10:40)
[2020-01-05] MEDS: Gabapentin 300 MG Cap*PT OWN MED PO SCH (08:19)
[2020-01-05] MEDS: Famotidine 20 MG Tab PO SCH (08:20)
[2020-01-05] MEDS: DILTIAZEM 180 MG PO SCH (08:20)
[2020-01-05] MEDS: Aspirin 81 MG Tab.EC PO SCH (08:25)
--- NOTE | 2020-01-05 08:54 | PN ---
DATE OF SERVICE: 01/05/2020 SUBJECTIVE: Mary Jane has been feeling better. She had an esophagogastroduodenoscopy yesterday. Biopsies are not back. She does want to go home. Afebrile. Vital signs otherwise stable. Oral intake 1480 and urine output several voids. REVIEW OF SYSTEMS: HEENT: Negative. NECK: Negative. CHEST: No chest pain, shortness of breath, fast or irregular heartbeat. ABDOMEN: No nausea or vomiting. Has not had a bowel movement. EXTREMITIES: Negative. SKIN: Negative for any rash. NEUROLOGIC: No dizziness, headaches, loss of coordination. PSYCHIATRIC: Negative. Remainder of review of systems negative for any pertinent positives and negatives. ASSESSMENT: 1. Esophagogastroduodenoscopy with: a. Biopsy of gastric ulcer. b. Biopsy over increased gastritis, gastric biopsy. c. Biopsy of the antrum and CLOtest for large hiatal hernia with mild inflammation in the distal esophagus. 2. Large ulcer, mid lesser curvature of the stomach (suspicion for carcinoma). 3. Diffuse gastritis. Date: 01/04/2020. Surgeon: Zhen Allen MD. PLAN: 1. Orders to be written per Sean Cosme MD. 2. Follow up on 01/12/2020 at 0830 at [facility], appointment with Zhen Allen MD. At this time, recommend a repeat esophagogastroduodenoscopy in 4 to 6 weeks. 3. We will evaluate p.r.n. or in a.m. Alison Moran PA-C /[id number]
[2020-01-05 10:35] VITALS: BP 161/89; PULSE 66
--- NOTE | 2020-01-05 12:48 | PCM.DCSUM1 ---
Discharge Summary - Hospital Course Brief History: Ms. Gupta is a 79-year-old woman who was admitted through the emergency department for further evaluation of epigastric and chest pain. - Discharge Data Discharge Date: 01/05/20 Discharge Disposition: Home, Self-Care 01 Condition: Fair - Referral to Home Health Primary Care Physician: PCP None - Discharge Diagnosis/Problem(s) (1) Gastritis SNOMED Code(s): 8344620 ICD Code: K29.70 - GASTRITIS, UNSPECIFIED, WITHOUT BLEEDING Status: Acute Current Visit: Yes (2) Esophagitis SNOMED Code(s): 27176552 ICD Code: K20.9 - ESOPHAGITIS, UNSPECIFIED Status: Acute Current Visit: Yes (3) Gastric ulcer SNOMED Code(s): 370278949 ICD Code: K25.9 - GASTRIC ULCER, UNSP ACUTE OR CHRONIC, W/O HEMOR OR PERF Status: Acute Current Visit: Yes (4) N&V (nausea and vomiting) SNOMED Code(s): 14515518 ICD Code: R11.2 - NAUSEA WITH VOMITING, UNSPECIFIED Status: Acute Current Visit: Yes (5) Dehydration SNOMED Code(s): 87938834 ICD Code: E86.0 - DEHYDRATION Status: Acute Current Visit: Yes - Patient Summary/Data Consults: Consultations 01/03/20 16:57 Consult to Physician [CONS] Routine Consulting Provider: Zhen Allenesy Call Completed to Consulting Physician: Yes Reason for Consult: Nausea, vomiting, anorexia, epigastric pain, EGD in a.m. Hospital Course: Ms. Gupta is a 79-year-old woman who was admitted to observation status through the emergency department for further evaluation and management of nausea, vomiting, dehydration, epigastric and chest pain. She was feeling well until about a month ago, since then has had progressive symptoms of pain occurring in her left chest as well as the center of the chest and radiating to her back. She also has associated sore throat and pain in the epigastric region. Pain seems to be worse after eating and does not seem to be related to exertion. Appetite has been diminished because of the pain. She has had no hematemesis hematochezia or melena. She has never had similar symptoms in the past. No history of peptic ulcer disease gastritis, esophagitis, or reflux. Ultrasound of the abdomen did show evidence of gallstones but no evidence of gallbladder wall thickening or ductal dilatation. Labs are for the most part unremarkable. CT scan of the abdomen pelvis did show thickening of the gastric wall, with some associated stranding and appearance of reactive lymph nodes. On admission she was started on IV Protonix every 12 hours and given IV fluids for hydration. Serial troponin levels were obtained because of the chest component of the pain and all remained within normal range. On the morning after admission she was seen and evaluated by Dr. Allen, EGD was performed. EGD showed evidence of esophagitis, gastritis, as well as a gastric ulcer suspicious for malignancy. Biopsies were obtained from the ulcer and pathology report is pending at the time of discharge. She was started on a full liquid diet which she tolerated this was advanced to a soft diet which she tolerated prior to discharge. In addition to the Protonix twice daily for 2 weeks she will be discharged on Carafate slurry 1 g 4 times daily. She should have Maalox available to use as needed. Follow-up appointment will be scheduled with Dr. Allen next week for follow-up of pathology reports. Activity will be as tolerated and she will be on a soft low residue diet. - Patient Instructions Diet: GI Soft/Low Residue/Low Fiber Activity: As Tolerated Other/Special Instructions: Please schedule follow-up appointment with Dr. Allen next week to review pathology results. - Discharge Plan *PRESCRIPTION DRUG MONITORING PROGRAM REVIEWED*: Not Applicable *COPY OF PRESCRIPTION DRUG MONITORING REPORT IN PATIENT DESHAWN: Not Applicable Prescriptions/Med Rec: Pantoprazole Sodium [Protonix] 40 mg PO BID #30 tablet. Sucralfate [Carafate] 1 gm PO QIDACANDBED #1200 ml Home Medications: Home Meds Gabapentin [Neurontin] 600 mg PO TID 12/23/15 [History] Biotin 1 tab PO DAILY 02/01/18 [History] Meclizine [Antivert] 1 tab PO ASDIRECTED PRN 02/01/18 [History] Aspirin [Halfprin] 81 mg PO DAILY 01/03/20 [History] Cholecalciferol (Vitamin D3) [Vitamin D3] 2,000 unit PO DAILY 01/03/20 [History] dilTIAZem HCL [Diltiazem 24Hr ER] 180 mg PO DAILY 01/03/20 [History] Alum Hydrox/Mag Hydrox/Simeth [Mag-Al Plus] 30 ml PO Q4H PRN cup 01/05/20 [Rx] Pantoprazole Sodium [Protonix] 40 mg PO BID #30 tablet. 01/05/20 [Rx] Sucralfate [Carafate] 1 gm PO QIDACANDBED #1200 ml 01/05/20 [Rx] Referrals: Zhen Allen MD [Physician] - 01/12/20 8:30 am - Discharge Summary/Plan Comment DC Time >30 min.: No - Patient Data Vitals - Most Recent: Last Vital Signs Temp 97.6 F 01/05/20 10:33 Pulse 66 01/05/20 10:33 Resp 16 01/05/20 10:33 BP 161/89 H 01/05/20 10:33 Pulse Ox 97 01/05/20 10:33 Weight - Most Recent: 126 lb 3.2 oz I&O - Last 24 hours: Intake & Output 01/04/20 01/05/20 01/05/20 22:59 06:59 14:59 Intake Total 880 300 100 Balance 880 300 100 Lab Results - Last 24 hrs: Laboratory Results - last 24 hr 01/04/20 Range/Units 10:30 Carcinoembryonic Ag 5.3 H (0.0-4.7) ng/mL [facility]NA Results - Last 24 hrs: Microbiology 01/04/20 09:32 CLOtest - Final Stomach NEGATIVE CLOTEST REFERENCE RANGE: NEGATIVE 01/03/20 13:20 Quick Strep Confirmation Culture - Final Throat NO GROUP A STREP ISOLATED REFERENCE RANGE: NEGATIVE Group A Streptococcus Rapid Screen - Final NEGATIVE STREP A SCREEN REFERENCE RANGE: NEGATIVE Med Orders - Current: Current Medications Acetaminophen (Tylenol) 650 mg PO Q4H PRN PRN Reason: Pain (Mild 1-3)/fever Last Admin: 01/04/20 05:21 Dose: 650 mg Al Hydroxide/Mg Hydroxide (Mag-Al Plus) 30 ml PO Q4H PRN PRN Reason: Pain Aspirin (Halfprin) 81 mg PO DAILY [facility] Last Admin: 01/05/20 08:25 Dose: 81 mg Diltiazem HCl (Cardizem Cd) 180 mg PO DAILY [facility] Last Admin: 01/05/20 08:20 Dose: 180 mg Famotidine (Pepcid) 20 mg PO BID [facility] Last Admin: 01/05/20 08:20 Dose: 20 mg Gabapentin (Neurontin) 600 mg PO TID [facility] Last Admin: 01/05/20 08:19 Dose: 600 mg Ondansetron HCl (Zofran) 4 mg IV Q4H PRN PRN Reason: Nausea/Vomiting Pantoprazole Sodium (Protonix Iv) 40 mg IV Q12H [facility] Last Admin: 01/05/20 05:13 Dose: 40 mg Polyethylene Glycol (Miralax) 17 gm PO DAILY PRN PRN Reason: Constipation Last Admin: 01/04/20 15:59 Dose: 17 gm Sodium Chloride (Saline Flush) 10 ml FLUSH ASDIRECTED PRN PRN Reason: Keep Vein Open Sucralfate (Carafate) 1 gm PO QIDACANDBED [facility] Last Admin: 01/05/20 10:40 Dose: 1 gm Discontinued Medications Aspirin (Ecotrin) 325 mg PO DAILY [facility] Diltiazem HCl (Cardizem Cd) 120 mg PO DAILY [facility] Etomidate (Amidate) Confirm Administered Dose 20 mg .ROUTE .STK-MED ONE Stop: 01/04/20 07:46 Etomidate (Amidate) Confirm Administered Dose 20 mg .ROUTE .STK-MED ONE Stop: 01/04/20 09:47 Gabapentin (Neurontin) 600 mg PO TID [facility] Sodium Chloride (Normal Saline) 1,000 mls @ 400 mls/hr IV ASDIRECTED [facility] Last Admin: 01/03/20 15:37 Dose: 400 mls/hr Sodium Chloride (Normal Saline) 1,000 mls @ 125 mls/hr IV ASDIRECTED [facility] Last Admin: 01/04/20 10:28 Dose: 125 mls/hr Ketorolac Tromethamine (Toradol) 15 mg IVPUSH ONETIME ONE Stop: 01/03/20 15:38 Last Admin: 01/03/20 15:43 Dose: 15 mg Ropinirole HCl (Requip) 2 mg PO BEDTIME [facility] Last Admin: 01/03/20 20:07 Dose: Not Given - Exam General: Reports: Alert, Oriented, Cooperative, Mild Distress Lungs: Reports: Clear to Auscultation, Normal Respiratory Effort Cardiovascular: Reports: Regular Rate, Regular Rhythm, No Murmurs GI/Abdominal Exam: Soft, No Organomegaly, Tender. No: Distended, Guarding, Rigid, Rebound *Q Meaningful Use (DIS) - VTE *Q VTE Pharmacological Contraindications *Q: Patient Scheduled Surgery
--- NOTE | 2020-01-10 14:13 | OR ---
DATE OF PROCEDURE: 01/04/2020 SURGEON: Zhen Allen MD PREOPERATIVE DIAGNOSIS: Upper gastrointestinal bleeding. POSTOPERATIVE DIAGNOSES: Upper gastrointestinal bleeding associated with: 1. Large hiatal hernia with mild inflammation of the distal esophagus. 2. Large ulcer involving mid lesser curvature of stomach suspicious for carcinoma. 3. Diffuse gastritis. OPERATIVE PROCEDURE: Esophagogastroduodenoscopy with: 1. Biopsies of gastric ulcer. 2. Biopsies of area of marked gastritis in gastric body. 3. Biopsies of antrum for CLOtest. ANESTHESIA: IV sedation. INDICATIONS FOR PROCEDURE: This is a 79-year-old presenting with some ongoing upper abdominal pain. In the past, she has been intermittently on omeprazole, but has not been consistently taking this. She presents now with some GI bleeding. Plan is to proceed with upper GI endoscopy with biopsies and/or polypectomy as indicated. Potential risks including bleeding and perforation were discussed, and the patient wishes to proceed. DETAILS OF PROCEDURE: The patient was taken to the operating room, placed in a left lateral decubitus position. IV sedation was administered after which the upper GI endoscope was passed orally through the length of esophagus into the stomach with retroflexion view of the fundus and thereafter through the pyloric channel and into the proximal duodenum. Findings included a fairly large hiatal hernia. There was some upward extension of the gastroesophageal junction mucosal plane with very mild inflammation grossly. However, as one entered the stomach, there was more or less diffuse gastritis. This was quite pronounced in the body and associated with a large ulcer located at lesser curvature. This was well away from the esophagogastric junction, so this would be the primary gastric pathology, and this was associated with gastritis particularly in the gastric body in the vicinity of the ulcer. The pyloric channel and proximal duodenum were unremarkable. At this point, biopsies were obtained from the area of the gastric ulcer. Biopsies were then also obtained from the area of gastritis around the ulcer, and both of these were sent for histologic evaluation. Biopsies were then obtained from the antrum and sent for CLOtest for H. pylori. Minimal bleeding from the biopsy sites was seen and the procedure then concluded. We will need to await the pathology report. If the biopsies all come back benign, the patient should be set up for followup upper GI endoscopy following maximal proton pump inhibitor therapy in roughly 4 to 6 weeks to ascertain whether or not the gastric ulcer is healed, and if it is malignant, then further workup and decision making would need to be undertaken at that point. Zhen Allen MD /[id number]
== END 2020-01-05 13:05 | disposition home or self-care (01) | DRG 384 ==
LOC: JP.ED 12:39 → JP.MS 16:04 → OBSVTOIN 01-04 10:42
PROVIDERS: ADMIT Hospitalist; ATTEND Hospitalist
DX: R10.13 Epigastric pain (principal); R11.2 Nausea with vomiting, unspecified; K25.3 Acute gastric ulcer without hemorrhage or perforation; K20.9 Esophagitis, unspecified; E78.00 Pure hypercholesterolemia, unspecified; Z66 Do not resuscitate; E86.0 Dehydration; H54.7 Unspecified visual loss; E78.5 Hyperlipidemia, unspecified; Z98.49 Cataract extraction status, unspecified eye; K44.9 Diaphragmatic hernia without obstruction or gangrene; F17.200 Nicotine dependence, unspecified, uncomplicated; I10 Essential (primary) hypertension; G89.29 Other chronic pain; M54.9 Dorsalgia, unspecified; M19.90 Unspecified osteoarthritis, unspecified site; F17.210 Nicotine dependence, cigarettes, uncomplicated; Z86.73 Personal history of transient ischemic attack (TIA), and cerebral infarction without residual deficits; Z79.82 Long term (current) use of aspirin; Z79.899 Other long term (current) drug therapy; Z88.8 Allergy status to other drugs, medicaments and biological substances; Z90.49 Acquired absence of other specified parts of digestive tract; Z90.710 Acquired absence of both cervix and uterus; Z98.41 Cataract extraction status, right eye; Z98.42 Cataract extraction status, left eye
CPT/HCPCS: 36415 ×2; 43239; 71045 ×2; 74176 ×2; 76705 ×2; 80048; 80053; 81001; 82378; 83690; 84484 ×3; 85025 ×2; 86140; 87081 ×2; 87880; 88305; 88312; 88341; 88342; 93005; 93010; 96361 ×3; 96374; 96375; 96376; 99218; 99284; 99285; A9270 ×2; C9113 ×2; G0378 ×2; J1885; J3490 ×2; J7030 ×4

== ENCOUNTER 2020-01-31 06:44 | Day surgery (SDC) | payer MEDICARE, OTHER ==
[2020-01-31] MEDS ORDERED: fentaNYL 100 MCG/2 ML SDV ONE (07:42)
[2020-01-31] MEDS ORDERED: Etomidate 2 MG/ML 10 ML SDV ONE (07:43)
[2020-01-31] MEDS ORDERED: Midazolam 1 MG/ML 2 ML SDV ONE (07:43)
[2020-01-31] MEDS ORDERED: Dextrose 5%-Lactated Ringers 1,000 ML IV SCH (07:45)
[2020-01-31 10:26] VITALS: BP 140/62; PULSE 60
--- NOTE | 2020-02-01 14:28 | OR ---
DATE OF PROCEDURE: 01/31/2020 SURGEON: Zhen Allen MD PREOPERATIVE DIAGNOSIS: History of gastric ulcer. POSTOPERATIVE DIAGNOSIS: Healed gastric ulcer. OPERATIVE PROCEDURE: Esophagogastroduodenoscopy with: 1. Biopsies of antrum for CLOtest. 2. Biopsies of scarred area mid lesser curvature of stomach (a previous ulcer). ANESTHESIA: IV sedation. INDICATION FOR PROCEDURE: This is an 80-year-old female roughly a month ago presenting with nausea and epigastric pain. She was noted at that time to have a large gastric ulcer along the lesser curvature biopsies of which were negative for both malignancy and the biopsies both there in the antrum failed to show any evidence of H. pylori. The patient has been on Protonix. She initially was on Zofran, but has gone off that due to some side effects, but is no longer nauseated or having significant epigastric pain. The plan was to proceed with upper GI endoscopy with biopsies to try to confirm healing of the gastric ulcer, i.e. ruling out a malignancy at the same time. Potential risks of the procedure including bleeding and perforation were discussed, and the patient wishes to proceed. DETAILS OF PROCEDURE: The patient was taken to the operating room and placed in a left lateral decubitus position. IV sedation was administered, after which the upper GI endoscope was passed orally through the length of the esophagus and into the stomach with retroflexion view of the fundus, thereafter through the pyloric channel into the junction of the 3rd and 4th portions of the duodenum. Findings included normal hypopharynx, larynx, upper esophageal sphincter, esophageal body, and EG junction apart from there being some upward extension of the gastroesophageal junction line at that level. There was no plaquing or other evidence of neoplastic change grossly and minimal inflammation at the EG junction. Within the stomach, the area of the previous ulcer was now healed. There was some distortion of mucosa related to some scar formation at 2 locations. Biopsies were obtained at those locations to help assure that we are not missing anything malignant, but the overall pattern of this extent of healing would make it unlikely that there are any malignant changes. Otherwise, biopsies were obtained from the antrum and sent for CLOtest for H. pylori. Minimal bleeding from the biopsy sites was seen and the procedure then concluded. Assuming the H. pylori on these biopsies remains negative, the patient should probably be on a proton pump inhibitor long-term. Whether there could be some deescalation would be up to primary care. She will be set up to see her primary care provider, Mone Ortiz PA-C in roughly 1 month. Otherwise, continue on the Protonix 40 mg a day. Zhen Allen MD /[id number] MTDD
== END 2020-01-31 10:35 | disposition home or self-care (01) ==
LOC: JP.SDS 06:44
PROVIDERS: ATTEND Surgery
DX: K29.50 Unspecified chronic gastritis without bleeding (principal); I10 Essential (primary) hypertension; E78.5 Hyperlipidemia, unspecified; Z11.59 Encounter for screening for other viral diseases; Z88.8 Allergy status to other drugs, medicaments and biological substances; Z87.19 Personal history of other diseases of the digestive system; Z95.0 Presence of cardiac pacemaker
CPT/HCPCS: 43239; 87081; J2250; J3010; J3490; J7121; U0002; 88305; 88341; 88342

== ENCOUNTER 2020-03-26 17:30 | Emergency (ER) | payer MEDICARE, OTHER ==
[2020-03-26 17:45] VITALS: BP 130/67; PULSE 59
[2020-03-26] MEDS ORDERED: Sodium Chloride 0.9% 10 ML Syringe FLUSH PRN (17:46)
[2020-03-26] MEDS ORDERED: Sodium Chloride 0.9% 10 ML Syringe FLUSH ONE (17:52)
--- NOTE | 2020-03-26 17:53 | EDM.PDOC ---
<Jacob Orozco - Last Filed: 03/26/20 18:12> ED HPI GENERAL MEDICAL PROBLEM - General Chief Complaint: Headache Stated Complaint: PAIN IN BACK OF HEAD,DIZZY Time Seen by Provider: 03/26/20 17:44 Source of Information: Reports: Patient, Family History Limitations: Reports: No Limitations - History of Present Illness INITIAL COMMENTS - FREE TEXT/NARRATIVE: Patient presents describing sudden onset posterior headache and dizziness today approximately 1030 hrs. She had gone to [employer] and during the service noticed this sudden onset headache in the occipital region of the skull. Headache came and persisted as in a steady pain. Concomitant with that, she felt dizzy and off-balance. She stayed in the [employer] service until its completion and managed to get out to her car. She drove slowly and carefully to her son's house where she remained for a while before eventually returning home to [place]. Symptoms continued unabated and through the afternoon and eventually notified family who brought her here today for further evaluation. The headache seems the same now as it was when it started almost 7 hours ago. The dizziness is still there and if she were trying to walk she would have difficulty keeping her balance. When the dizziness occurs, she also notices tearing of her eyes. That has waxed and waned throughout the day as well but the headache has been the one constant thing since symptoms began this morning. She has not had anything like this before. She was recently treated for a gastric ulcer and underwent upper GI endoscopy. According to patient and family there was no evidence of bleeding at the time, just gastric irritation. Onset: Sudden Onset Date: 03/26/20 Onset Time: 10:30 Duration: Constant Location: Reports: Head Quality: Reports: Ache, Sharp Severity: Moderate Improves with: Reports: None Worsens with: Reports: None Associated Symptoms: Reports: Other (Dizziness as described.) - Related Data Allergies Allergy/AdvReac Type Severity Reaction Status Date / Time Sehkxnc-Pew-Igg Reductase AdvReac Severe sore Verified 01/31/20 07:10 Inhibitor muscles painful to walk Home Meds: Home Meds Gabapentin [Neurontin] 600 mg PO TID 12/23/15 [History] Meclizine [Antivert] 1 tab PO ASDIRECTED PRN 02/01/18 [History] Aspirin [Halfprin] 81 mg PO DAILY 01/03/20 [History] dilTIAZem HCL [Diltiazem 24Hr ER] 180 mg PO DAILY 01/03/20 [History] Pantoprazole Sodium [Protonix] 40 mg PO BID #30 tablet.dr 01/05/20 [Rx] Sucralfate [Carafate] 1 gm PO QIDACANDBED #1200 ml 01/05/20 [Rx] Cholecalciferol (Vitamin D3) [Vitamin D3] 2,000 unit PO DAILY 01/27/20 [History] Docusate Sodium/Sennosides [Senokot-S] 2 tab PO BEDTIME 01/27/20 [History] Flaxseed 2 oz PO DAILY 01/27/20 [History] Past Medical History HEENT History: Reports: Impaired Vision Cardiovascular History: Reports: High Cholesterol, Hypertension, Pacemaker Respiratory History: Reports: None 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 History: Reports: 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, Other (See Below) Other 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 History: GASTRIC ULCER Genitourinary History: Reports: None TUBE BLOWER History: Reports: Musculoskeletal History: Reports: Back Pain, Chronic, Osteoarthritis Neurological History: Reports: TIA Psychiatric History: Reports: None Endocrine/Metabolic History: Reports: None Hematologic History: Reports: None Immunologic History: Reports: None Oncologic (Cancer) History: Reports: None Dermatologic History: Reports: None - Infectious Disease History Infectious Disease History: Reports: Chicken Pox, Measles, Mumps - Past Surgical History Head Surgeries/Procedures: Reports: None HEENT Surgical History: Reports: Cataract Surgery Cardiovascular Surgical History: Reports: Other (See Below) Other Cardiovascular Surgeries/Procedures: angiogram Respiratory Surgical History: Reports: None GI Surgical History: Reports: Appendectomy, Hernia Repair/Other Female Surgical History: Reports: Hysterectomy Neurological Surgical History: Reports: None Musculoskeletal Surgical History: Reports: None Oncologic Surgical History: Reports: None Dermatological Surgical History: Reports: None Social & Family History - Family History Cardiac: Reports: Other (See Below) Dermatologic: Reports: None Oncologic: Reports: None - Tobacco Use Smoking Status *Q: Never Smoker - Caffeine Use Caffeine Use: Reports: Coffee, Tea ED ROS GENERAL - Review of Systems Review Of Systems: See Below Constitutional: Reports: No Symptoms HEENT: Reports: Other (Tearing of her eyes coincident with dizziness feelings.) Respiratory: Reports: No Symptoms Cardiovascular: Reports: No Symptoms Endocrine: Reports: No Symptoms GI/Abdominal: Reports: Nausea. Denies: Vomiting : Reports: No Symptoms Musculoskeletal: Reports: No Symptoms Neurological: Reports: Dizziness, Headache (Posterior/occipital region.) Hematologic/Lymphatic: Reports: No Symptoms - Physical Exam Exam: See Below Exam Limited By: No Limitations General Appearance: Alert, Moderate Distress Eye Exam: Bilateral Eye: EOMI Neck: Supple, Non-Tender Respiratory/Chest: No Respiratory Distress Cardiovascular: Regular Rate, Rhythm Neuro Exam (Abbreviated): Alert, Oriented, CN II-XII Intact Course - Re-Assessments/Exams Free Text/Narrative Re-Assessment/Exam: 03/26/20 17:55 Given the sudden onset and intensity of symptoms, we will obtain a CT angiogram of the head and neck. 03/26/20 18:[address] Lawrence at 1809 hours. Departure - Departure Disposition: Home, Self-Care 01 Clinical Impression: Dizziness, Nausea Headache Qualifiers: Headache type: unspecified Headache chronicity pattern: acute headache Intractability: not intractable Qualified Code(s): R51 - Headache - Discharge Information Instructions: Migraine Headache, [id number]-wy-Vkai Referrals: Mone Ortiz PA [Primary Care Provider] - Forms: ED Department Discharge Additional Instructions: Acetaminophen as needed for headache. See your primary care provider for follow up later this week. Return as needed. Sepsis Event Note (ED) - Evaluation Sepsis Screening Result: No Definite Risk <Wm Lawrence - Last Filed: 03/26/20 19:53> EKG INTERPRETATION EKG Date: 03/26/20 Time: 18:10 Rhythm: Other ("atrial paced complexes") Rate (Beats/Min): 60 [place]: Normal P-Wave: Present QRS: Normal ST-T: Normal QT: Normal (LVH) Comparison: No Change Course - Radiology Interpretation Free Text/Narrative:: CTA head and neck-IMPRESSION: CTA head: Unremarkable. No sign of occlusion or significant aneurysm. CTA neck: There is stenosis in the proximal right internal carotid artery. Unremarkable left internal carotid artery and both vertebral arteries. Dictated by Barry Pimentel MD @ 03/26/2020 7:43:[address] Results Date: 03/26/20 CT Results Time: 19:50 Departure - Departure Time of Disposition: 19:53 - Discharge Information *PRESCRIPTION DRUG MONITORING PROGRAM REVIEWED*: Not Applicable *COPY OF PRESCRIPTION DRUG MONITORING REPORT IN PATIENT DESHAWN: Not Applicable <VicenterGuille - Last Filed: 03/28/20 07:13> Course - Vital Signs Last Recorded V/S: Last Vital Signs Temp 96.8 F L 03/26/20 17:44 Pulse 59 L 03/26/20 17:44 Resp 14 03/26/20 17:44 BP 130/67 03/26/20 17:44 Pulse Ox 95 03/26/20 17:44 - Orders/Labs/Meds Labs: Laboratory Tests 03/26/20 03/26/20 03/26/20 Range/Units 18:03 18:03 18:03 WBC 7.4 (4.5-11.0) K/uL RBC 4.05 (3.30-5.50) M/uL Hgb 12.9 (12.0-15.0) g/dL Hct 38.6 (36.0-48.0) % MCV 95 (80-98) fL MCH 32 H (27-31) pg MCHC 33 (32-36) % Plt Count 282 (150-400) K/uL Neut % (Auto) 55 (36-66) % Lymph % (Auto) 29 (24-44) % [place] % (Auto) 13 H (2-6) % Eos % (Auto) 3 (2-4) % Baso % (Auto) 1 (0-1) % PT 10.3 (9.5-12.0) sec INR 0.94 (0.80-1.20) Sodium 135 L (140-148) mmol/L Potassium 4.2 (3.6-5.2) mmol/L Chloride 98 L (100-108) mmol/L Carbon Dioxide 27 (21-32) mmol/L Anion Gap 14.2 H (5.0-14.0) mmol/L BUN 22 H D (7-18) mg/dL Creatinine 1.1 H (0.6-1.0) mg/dL Est Cr Clr Drug Dosing 29.30 mL/min Estimated GFR (MDRD) 48 L (>60) Glucose 110 H (74-106) mg/dL Calcium 9.1 D (8.5-10.1) mg/dL Total Bilirubin 0.4 (0.2-1.0) mg/dL AST 17 (15-37) U/L ALT 19 (12-78) U/L Alkaline Phosphatase 63 (46-116) U/L Total Protein 7.5 (6.4-8.2) g/dL Albumin 3.6 (3.4-5.0) g/dL Globulin 3.9 H (2.3-3.5) g/dL Albumin/Globulin Ratio 0.9 L (1.2-2.2) Meds: Medications Discontinued Medications Generic Name Dose Route Start Last Admin Trade Name Freq PRN Reason Stop Dose Admin Sodium Chloride 100 mls @ 3 mls/sec 03/26/20 18:00 03/26/20 19:31 Normal Saline IV 3 mls/sec ASDIRECTED TARUN Administration Iopamidol 100 ml 03/26/20 18:00 03/26/20 19:30 Isovue-370 (76%) IV 100 ml . DIRECTED TARUN Administration Sodium Chloride 10 ml 03/26/20 17:46 03/26/20 19:31 Saline Flush FLUSH 10 ml ASDIRECTED PRN Administration Keep Vein Open Sodium Chloride 10 ml 03/26/20 17:52 03/26/20 17:56 Saline Flush FLUSH 03/26/20 17:53 10 ml ONETIME ONE Administration - Re-Assessments/Exams Free Text/Narrative Re-Assessment/Exam: 03/28/20 07:13 Called primary care Mone Garsia to give update on findings from CTA after discussion with neuroradiology
[2020-03-26] MEDS ORDERED: Iopamidol 755 Mg/ML 100 ML Bottle IV SCH (18:00)
[2020-03-26] MEDS ORDERED: Sodium Chloride 0.9% 100 ML IV SCH (18:00)
--- NOTE | 2020-03-26 19:46 | CRLCT ---
INDICATION: Sudden onset posterior headache, dizziness. TECHNIQUE: After standard noncontrast head CT, high resolution axial CT images acquired through the head and neck following rapid intravenous administration of iodinated contrast. Multiplanar MIPS of cranial and cervical vasculature performed.= FINDINGS: Noncontrast head CT: There is no intracranial hemorrhage or fluid collection. The galan-white matter differentiation is maintained. Brain parenchymal volume loss is noted. There are nonspecific white matter hypodensities commonly seen with cerebral small vessel disease. The ventricles are of normal morphology. The basal cisterns are clear. CTA head: There is extensive diffuse intracranial atherosclerotic disease. Highly irregular plaque is present around the carotid siphons. There are multifocal moderate to severe stenoses of both posterior cerebral arteries. Milder stenoses are noted in the anterior and middle cerebral arteries. CTA neck: There is a severe focal stenosis at the origin of the right internal carotid artery due to soft irregular plaque resulting in 80 percent narrowing by NASCET criteria. There are mild stenoses of the origins of both the left common carotid artery and left subclavian artery due to ulcerated plaque. There is a severe stenosis at the origin of left vertebral artery with more distal tandem stenoses resulting in a near occlusion. There is a very mild stenosis of the origin of left internal carotid artery, less than 50 percent by NASCET criteria. IMPRESSION: 1. Extensive diffuse intracranial atherosclerotic disease detailed above. 2. Severe proximal right ICA stenosis, 80% by NASCET criteria. 3. Mild proximal left ICA stenosis, less than 50% by NASCET criteria. 4. 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 5. Ulcerated plaque at the origins of both left common carotid and subclavian arteries. Lang Marcano MD [facility] Please note that all CT scans at this facility use dose modulation, iterative reconstruction, and/or weight-based dosing when appropriate to reduce radiation dose to as low as reasonably achievable. Dictated by Lang Marcano MD @ Mar 27 2020 5:53AM Signed by Dr. Lang Marcano @ Mar 27 2020 5:53AM
== END 2020-03-26 20:08 | disposition home or self-care (01) ==
LOC: JP.ED 17:30
DX: R51 Headache (principal); R42 Dizziness and giddiness; R11.0 Nausea; I10 Essential (primary) hypertension; M19.90 Unspecified osteoarthritis, unspecified site; Z88.8 Allergy status to other drugs, medicaments and biological substances; Z79.82 Long term (current) use of aspirin; Z79.899 Other long term (current) drug therapy
CPT/HCPCS: 36415; 70496; 70498; 80053; 85025; 85610; 93005; 99284; J7050; Q9967

== ENCOUNTER 2020-04-22 10:51 | Emergency (ER) | payer MEDICARE, OTHER ==
[2020-04-22 11:13] VITALS: BP 166/77; PULSE 60
--- NOTE | 2020-04-22 11:43 | EDM.PDOC ---
ED HPI GENERAL MEDICAL PROBLEM - General Chief Complaint: Neurological Problem Stated Complaint: headache with pressure that feels like her head is going to explode Time Seen by Provider: 04/22/20 11:20 Source of Information: Reports: Patient, Family, Old Records, RN, RN Notes Reviewed - History of Present Illness INITIAL COMMENTS - FREE TEXT/NARRATIVE: Stents placed this past Friday and came home without complications on . Went out and was running errands on Friday. Late Friday patient got up from couch and had return of her symptoms including dizziness and headache. She states her headache is different than noted previously. She has only started having headaches since March 26. Only a rare headache previous to this. Onset: Sudden Onset Date: 04/21/20 Onset Time: 17:00 (states after 5pm but unsure of actual time) Duration: Hour(s):, Getting Worse Location: Reports: Head Quality: Reports: Pressure. Denies: Same as Previous Episode Severity: Severe Improves with: Reports: Other (none) Worsens with: Reports: Movement (upright makes if worse) Associated Symptoms: Reports: Headaches, Nausea/Vomiting (nausea only) Headache Pain Score (Numeric/FACES): 10 - Related Data Allergies Allergy/AdvReac Type Severity Reaction Status Date / Time [id number] Reductase AdvReac Severe sore Verified 01/31/20 07:10 Inhibitor muscles painful to walk Home Meds: Home Meds Gabapentin [Neurontin] 600 mg PO TID 12/23/15 [History] Aspirin [Halfprin] 81 mg PO DAILY 01/03/20 [History] dilTIAZem HCL [Diltiazem 24Hr ER] 180 mg PO DAILY 01/03/20 [History] Pantoprazole Sodium [Protonix] 40 mg PO BID #30 tablet. 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: Musculoskeletal History: Reports: Back Pain, Chronic, Osteoarthritis Neurological History: Reports: TIA Psychiatric History: Reports: None Endocrine/Metabolic History: Reports: None Hematologic History: Reports: None Immunologic History: Reports: None Oncologic (Cancer) History: Reports: None Dermatologic History: Reports: None - Infectious Disease History Infectious Disease History: Reports: Chicken Pox, Measles, Mumps - Past Surgical History HEENT Surgical History: Reports: Cataract Surgery Cardiovascular Surgical History: Reports: Carotid Stents, Other (See Below) Other Cardiovascular Surgeries/Procedures: angiogram GI Surgical History: Reports: Appendectomy, Hernia Repair/Other Female Surgical History: Reports: Hysterectomy Neurological Surgical History: Reports: None Musculoskeletal Surgical History: Reports: None Oncologic Surgical History: Reports: None Social & Family History - Family History Cardiac: Reports: Other (See Below) Dermatologic: Reports: None Oncologic: Reports: None - Tobacco Use Smoking Status *Q: Current Every Day Smoker Years of Tobacco use: 62 Packs/Tins Daily: 0.2 - Caffeine Use Caffeine Use: Reports: Coffee - Recreational Drug Use Recreational Drug Use: No ED ROS GENERAL - Review of Systems Review Of Systems: See Below Constitutional: Reports: No Symptoms Respiratory: Reports: No Symptoms Cardiovascular: Reports: No Symptoms Endocrine: Reports: No Symptoms GI/Abdominal: Reports: No Symptoms Skin: Reports: Lesions (cath site right groin covered with tegaderm) Neurological: Reports: Dizziness, Headache Psychiatric: Reports: No Symptoms Hematologic/Lymphatic: Reports: Other (New start Brilinta) Immunologic: Reports: No Symptoms ED EXAM, NEURO - Physical Exam Exam: See Below Text/Narrative:: Pt laying on cot. Daughter present. Conversing without difficulty. Eyes closed. No abnormalities in speech or participating in conversation. Pulses weak but palpable. No carotid bruits noted Exam Limited By: No Limitations General Appearance: Alert, Mild Distress Eye Exam: Bilateral Eye: EOMI, Normal Inspection, PERRL Ears: Normal External Exam, Normal Canal, Hearing Grossly Normal Nose: Normal Inspection, Normal Mucosa Head Exam: Atraumatic, Normocephalic Neck: Normal Inspection, Supple, Non-Tender, Full Range of Motion. No: Carotid Bruit Respiratory/Chest: No Respiratory Distress, Lungs Clear, Normal Breath Sounds, No Accessory Muscle Use, Chest Non-Tender Cardiovascular: Regular Rate, Rhythm, No Edema, No Gallop, No JVD, No Murmur GI/Abdominal: Normal Bowel Sounds, Soft, Non-Tender, No Organomegaly, No Distention, No Abnormal Bruit, No Mass, Pelvis Stable Neurological: Alert, Normal Mood/Affect, Normal Dorsiflexion, CN II-XII Intact, Normal Plantar Flexion, Oriented x 3 Extremities: Normal Inspection, Normal Range of Motion, Non-Tender, No Pedal Edema, Normal Capillary Refill Psychiatric: Normal Affect, Normal Mood Skin Exam: Warm, Dry, Normal Color, Other Comments: Cardiac cath Access point right groin Course - Vital Signs Last Recorded V/S: Last Vital Signs Temp 36.2 C 04/22/20 11:12 Pulse 60 04/22/20 11:12 Resp 14 04/22/20 11:12 BP 166/77 H 04/22/20 11:12 Pulse Ox 98 04/22/20 11:12 - Orders/Labs/Meds Labs: Laboratory Tests 04/22/20 04/22/20 04/22/20 Range/Units 12:12 12:12 12:12 WBC 6.6 (4.5-11.0) K/uL RBC 3.62 (3.30-5.50) M/uL Hgb 11.3 L (12.0-15.0) g/dL Hct 35.1 L (36.0-48.0) % MCV 97 (80-98) fL MCH 31 (27-31) pg MCHC 32 (32-36) % Plt Count 272 (150-400) K/uL Neut % (Auto) 64 (36-66) % Lymph % (Auto) 20 L (24-44) % [place] % (Auto) 11 H (2-6) % Eos % (Auto) 6 H (2-4) % Baso % (Auto) 1 (0-1) % PT 10.7 (9.5-12.0) sec INR 0.98 (0.80-1.20) APTT 25.2 L (27.0-36.0) sec D-Dimer, Quantitative 934 H (0.0-400.0) ng/mL D-Dimer elevated - pt on Brilinta Changes on CBC related to recent stent placement. - Radiology Interpretation Free Text/Narrative:: Per radiologist read - NO CT evidence of an acute intracranial abnormality. CT Results Date: 04/22/20 CT Results Time: 12:32 - Re-Assessments/Exams Free Text/Narrative Re-Assessment/Exam: 04/22/20 12:58 Results explained to pt and pts daughter who is a nurse. Pt will follow up with Dr Laird in [place] for further investigation and MRI that was scheduled of head and neck. Departure - Departure Time of Disposition: 13:23 Disposition: Home, Self-Care 01 Clinical Impression: Nausea, Dizziness Headache Qualifiers: Headache type: unspecified Headache chronicity pattern: acute headache Intractability: not intractable Qualified Code(s): R51 - Headache - Discharge Information *PRESCRIPTION DRUG MONITORING PROGRAM REVIEWED*: Not Applicable *COPY OF PRESCRIPTION DRUG MONITORING REPORT IN PATIENT DESHAWN: Not Applicable Instructions: Nausea, Adult, [id number], General Headache Without Cause, [id number], Dizziness, [id number] Referrals: Mone Ortiz PA [Primary Care Provider] - Forms: ED Department Discharge Additional Instructions: Followup with Dr. Laird in [place] for further investigation and planned MRI of head and neck Utilized Tylenol for headache pain. Caution rapid change in position to help reduce dizziness. Care Plan Goals: Return to ER if any change or worsening in headache/dizziness. Followup with provider in [place] next week. Daughter to make arrangements Sepsis Event Note (ED) - Evaluation Sepsis Screening Result: No Definite Risk - Focused Exam Vital Signs: Vital Signs Temp Pulse Resp BP Pulse Ox 04/22/20 11:12 36.2 C 60 14 166/77 H 98 - Problem List Review Problem List Initiated/Reviewed/Updated: Yes - Assessment/Plan Assessment:: Headache with dizziness/nausea - return of symptoms previous to recent stent placement Plan: Followup with Dr. Laird in [place] for planned MRI of Head and Neck
--- NOTE | 2020-04-22 12:33 | CRLCT ---
INDICATION: Headache. TECHNIQUE: Noncontrast axial images with coronal reconstructions. COMPARISON: 04/16/2017. FINDINGS: There is no abnormal intracranial mass effect or midline shift. No intraparenchymal hemorrhage is seen. White matter changes are noted, likely related to chronic small vessel disease. Remote right temporal lobe infarct. No extra-axial hemorrhage. No change in the size or appearance of the CSF spaces. Diffuse cerebral atrophy is redemonstrated. No acute osseous abnormality. The visualized portions of the paranasal sinuses and mastoids are clear. IMPRESSION: No CT evidence of an acute intracranial abnormality. Dictated by Darin Crews MD @ 04/22/2020 12:32:34 PM Please note that all CT scans at this facility use dose modulation, iterative reconstruction, and/or weight-based dosing when appropriate to reduce radiation dose to as low as reasonably achievable. Dictated by: Darin Crews MD @ 04/22/2020 12:32:38 (Electronically Signed)
== END 2020-04-22 13:24 | disposition home or self-care (01) ==
LOC: JP.ED 10:51
DX: R51 Headache (principal); R42 Dizziness and giddiness; R11.0 Nausea; I10 Essential (primary) hypertension; M19.90 Unspecified osteoarthritis, unspecified site; Z86.73 Personal history of transient ischemic attack (TIA), and cerebral infarction without residual deficits; Z88.8 Allergy status to other drugs, medicaments and biological substances; Z79.82 Long term (current) use of aspirin; Z79.899 Other long term (current) drug therapy
CPT/HCPCS: 36415; 70450; 85025; 85379; 85610; 85730; 99282; 99284-25

== ENCOUNTER 2020-05-13 16:52 | Inpatient (IN) | payer MEDICARE, OTHER ==
--- NOTE | 2020-05-13 18:04 | EDM.PDOC ---
ED HPI GENERAL MEDICAL PROBLEM - General Chief Complaint: 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 Problem Stated Complaint: DARK COLORED STOOL Time Seen by Provider: 05/13/20 18:03 Source of Information: Reports: Patient, Family, RN Notes Reviewed History Limitations: Reports: No Limitations - History of Present Illness INITIAL COMMENTS - FREE TEXT/NARRATIVE: Mary Jane presents today for complaints of abdominal pain and black liquid stools x 4 today. She reports stomach type cramping prior to having BMs. She reports decreased appetite and overall weakness. She is currently taking protonix and plavix. Recent carotid stent placed. Mary Jane reports she has also been suffering with dizziness. She denies fever, chills, vomiting, constipation, alcohol use or other concerns. - Related Data Allergies Allergy/AdvReac Type Severity Reaction Status Date / Time Gqsljbi-Oma-Kad Reductase AdvReac Severe sore Verified 05/13/20 17:31 Inhibitor muscles painful to walk Home Meds: Home Meds Gabapentin [Neurontin] 600 mg PO TID 12/23/15 [History] Aspirin [Halfprin] 81 mg PO DAILY 01/03/20 [History] dilTIAZem HCL [Diltiazem 24Hr ER] 180 mg PO DAILY 01/03/20 [History] Pantoprazole Sodium [Protonix] 40 mg PO BID #30 tablet. 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: Musculoskeletal History: Reports: Back Pain, Chronic, Osteoarthritis Neurological History: Reports: TIA Psychiatric History: Reports: None Endocrine/Metabolic History: Reports: None Hematologic History: Reports: None Immunologic History: Reports: None Oncologic (Cancer) History: Reports: None Dermatologic History: Reports: None - Infectious Disease History Infectious Disease History: Reports: Chicken Pox, Measles, Mumps - Past Surgical History Head Surgeries/Procedures: Reports: None HEENT Surgical History: Reports: Cataract Surgery Cardiovascular Surgical History: Reports: Carotid Stents, Other (See Below) Other Cardiovascular Surgeries/Procedures: angiogram Respiratory Surgical History: Reports: None GI Surgical History: Reports: Appendectomy, Hernia Repair/Other Female Surgical History: Reports: Hysterectomy Endocrine Surgical History: Reports: None Neurological Surgical History: Reports: None Musculoskeletal Surgical History: Reports: None Oncologic Surgical History: Reports: None Dermatological Surgical History: Reports: None Social & Family History - Family History Cardiac: Reports: Other (See Below) Dermatologic: Reports: None Oncologic: Reports: None - Tobacco Use Tobacco Use Status *Q: Current Every Day Tobacco User Years of Tobacco use: 60 Packs/Tins Daily: 0.5 Used Tobacco, but Quit: No Second Hand Smoke Exposure: No - Caffeine Use Caffeine Use: Reports: Coffee - Recreational Drug Use Recreational Drug Use: No ED ROS GENERAL - Review of Systems Review Of Systems: See Below Constitutional: Reports: Weakness HEENT: Reports: No Symptoms Respiratory: Reports: No Symptoms Cardiovascular: Reports: No Symptoms Endocrine: Reports: No Symptoms GI/Abdominal: Reports: Abdominal Pain, Black Stool, Diarrhea, Decreased Appetite, Melena, Nausea. Denies: Constipation, Difficulty Swallowing, Distension : Reports: No Symptoms Musculoskeletal: Reports: No Symptoms Skin: Reports: No Symptoms Neurological: Reports: Dizziness, Weakness. Denies: Confusion, Headache, Numbness, Syncope, Trouble Speaking, Difficulty Walking, Gait Disturbance Psychiatric: Reports: No Symptoms Hematologic/Lymphatic: Reports: No Symptoms Immunologic: Reports: No Symptoms ED EXAM, GI/ABD - Physical Exam Exam: See Below Exam Limited By: No Limitations General Appearance: Alert, WD/WN, Mild Distress Ears: Normal External Exam, Normal Canal, Hearing Grossly Normal, Normal TMs Throat/Mouth: Normal Inspection, Normal Lips, Normal Gums, Normal Oropharynx, Normal Voice, No Airway Compromise Head: Atraumatic, Normocephalic Neck: Normal Inspection, Supple, Non-Tender, Full Range of Motion. No: Lymphadenopathy (R), Lymphadenopathy (L) Respiratory/Chest: No Respiratory Distress, Lungs Clear, Normal Breath Sounds, No Accessory Muscle Use, Chest Non-Tender. No: Crackles, Rales, Rhonchi, Wheezing Cardiovascular: Normal Peripheral Pulses, No Edema, No Gallop, No Murmur, No Rub, Irregularly Irregular, Other (atrial fibrillation) GI/Abdominal Exam: Normal Bowel Sounds, Soft, Tender. No: No Distention, Guarding, Rigid, Rebound, Mass Rectal (Female) Exam: Normal Rectal Tone, Black Stool, Tenderness Back Exam: Normal Inspection, Full Range of Motion. No: CVA Tenderness (R), CVA Tenderness (L) Extremities: Normal Inspection, Normal Range of Motion, Non-Tender, No Pedal Edema, Normal Capillary Refill Neurological: Alert, Oriented, Normal Cognition, Normal Gait, No Motor/Sensory Deficits Psychiatric: Normal Affect, Normal Mood Skin Exam: Warm, Dry, Intact, Normal Color, No Rash Lymphatic: No Adenopathy Course - Vital Signs Last Recorded V/S: Last Vital Signs Temp 35.5 C L 05/13/20 19: Pulse 64 05/13/20 19:26 Resp 18 05/13/20 19:26 BP 111/60 05/13/20 19:26 Pulse Ox 96 05/13/20 19:26 - Orders/Labs/Meds Orders: Active Orders 24 hr Category Date Time Status PATIENT RETYPE [BBK] Stat Lab 05/13/20 18:26 Results TYPE AND SCREEN [BBK] Stat Lab 05/13/20 18:26 Results Sodium Chloride 0.9% [Normal Saline] 1,000 ml Med 05/13/20 18:45 Active IV ASDIRECTED Sodium Chloride 0.9% [Saline Flush] Med 05/13/20 18:26 Active 10 ml FLUSH ASDIRECTED PRN Saline Lock Insert [OM.PC] Routine Oth 05/13/20 18:26 Ordered Medication Orders Sodium Chloride (Normal Saline) 1,000 mls @ 150 mls/hr IV ASDIRECTED TARUN Last Admin: 05/13/20 18:37 Dose: 150 mls/hr Documented by: PAULETTE Lactated Ringer's (Ringers, Lactated) 1,000 mls @ 100 mls/hr IV ASDIRECTED TARUN Non-Formulary Medication (Diltiazem Hcl [Diltiazem 24hr Er]) 180 mg PO DAILY TARNU Non-Formulary Medication (Gabapentin [Neurontin]) 600 mg PO TID TARUN Ondansetron HCl (Zofran Odt) 4 mg PO Q6H PRN PRN Reason: Nausea able to take PO Pantoprazole Sodium (Protonix Iv) 40 mg IVPUSH Q12H TARUN Sodium Chloride (Saline Flush) 10 ml FLUSH ASDIRECTED PRN PRN Reason: Keep Vein Open Last Admin: 05/13/20 18:38 Dose: 10 ml Documented by: PAULETTE Labs: Laboratory Tests 05/13/20 05/13/20 05/13/20 Range/Units 18:26 18:26 18:26 WBC 7.6 (4.5-11.0) K/uL RBC 4.03 (3.30-5.50) M/uL Hgb 12.9 (12.0-15.0) g/dL Hct 39.3 (36.0-48.0) % MCV 98 (80-98) fL MCH 32 H (27-31) pg MCHC 33 (32-36) % Plt Count 259 (150-400) K/uL Neut % (Auto) 65 (36-66) % Lymph % (Auto) 23 L (24-44) % [place] % (Auto) 10 H (2-6) % Eos % (Auto) 2 (2-4) % Baso % (Auto) 1 (0-1) % PT (9.5-12.0) sec INR (0.80-1.20) APTT (27.0-36.0) sec Sodium 135 L (140-148) mmol/L Potassium 3.8 (3.6-5.2) mmol/L Chloride 99 L (100-108) mmol/L Carbon Dioxide 26 (21-32) mmol/L Anion Gap 13.8 (5.0-14.0) mmol/L BUN 34 H D (7-18) mg/dL Creatinine 1.0 (0.6-1.0) mg/dL Est Cr Clr Drug Dosing 32.23 mL/min Estimated GFR (MDRD) 53 L (>60) Glucose 98 (74-106) mg/dL Calcium 9.1 (8.5-10.1) mg/dL Magnesium 2.3 (1.8-2.4) mg/dL Total Bilirubin 0.3 (0.2-1.0) mg/dL AST 16 (15-37) U/L ALT 27 (12-78) U/L Alkaline Phosphatase 50 (46-116) U/L Total Protein 7.0 (6.4-8.2) g/dL Albumin 3.8 (3.4-5.0) g/dL Globulin 3.2 (2.3-3.5) g/dL Albumin/Globulin Ratio 1.2 (1.2-2.2) Blood Type A POSITIVE Gel Antibody Screen Negative 05/13/20 Range/Units 18:30 WBC (4.5-11.0) K/uL RBC (3.30-5.50) M/uL Hgb (12.0-15.0) g/dL Hct (36.0-48.0) % MCV (80-98) fL MCH (27-31) pg MCHC (32-36) % Plt Count (150-400) K/uL Neut % (Auto) (36-66) % Lymph % (Auto) (24-44) % [place] % (Auto) (2-6) % Eos % (Auto) (2-4) % Baso % (Auto) (0-1) % PT 10.5 (9.5-12.0) sec INR 0.96 (0.80-1.20) APTT 23.2 L (27.0-36.0) sec Sodium (140-148) mmol/L Potassium (3.6-5.2) mmol/L Chloride (100-108) mmol/L Carbon Dioxide (21-32) mmol/L Anion Gap (5.0-14.0) mmol/L BUN (7-18) mg/dL Creatinine (0.6-1.0) mg/dL Est Cr Clr Drug Dosing mL/min Estimated GFR (MDRD) (>60) Glucose (74-106) mg/dL Calcium (8.5-10.1) mg/dL Magnesium (1.8-2.4) mg/dL Total Bilirubin (0.2-1.0) mg/dL AST (15-37) U/L ALT (12-78) U/L Alkaline Phosphatase (46-116) U/L Total Protein (6.4-8.2) g/dL Albumin (3.4-5.0) g/dL Globulin (2.3-3.5) g/dL Albumin/Globulin Ratio (1.2-2.2) Blood Type Gel Antibody Screen Patient assessment, lab work reviewed with Dr. Allen. He advised hospital admission per hospitalist and EGD at 0730 tomorrow morning (05/14/2020). Patient and her daughter notified, they are in agreement with plan. Patient will be NPO. Dr. Merritt notified of plan for admission and EGD. Meds: Medications Generic Name Dose Route Start Last Admin Trade Name Freq PRN Reason Stop Dose Admin Sodium Chloride 1,000 mls @ 150 mls/hr 05/13/20 18:45 05/13/20 18:37 Normal Saline IV 150 mls/hr ASDIRECTED TARUN Administration Lactated Ringer's 1,000 mls @ 100 mls/hr 05/13/20 19:30 Ringers, Lactated IV ASDIRECTED TARUN Non-Formulary Medication 180 mg 05/14/20 09:00 Diltiazem Hcl [Diltiazem 24hr Er] PO DAILY TARUN Non-Formulary Medication 600 mg 05/13/20 21:00 Gabapentin [Neurontin] PO TID TARUN Ondansetron HCl 4 mg 05/13/20 19:26 Zofran Odt PO Q6H PRN Nausea able to take PO Pantoprazole Sodium 40 mg 05/13/20 19:45 Protonix Iv IVPUSH Q12H TARUN Sodium Chloride 10 ml 05/13/20 18:26 05/13/20 18:38 Saline Flush FLUSH 10 ml ASDIRECTED PRN Administration Keep Vein Open Discontinued Medications Generic Name Dose Route Start Last Admin Trade Name Freq PRN Reason Stop Dose Admin Ondansetron HCl 4 mg 05/13/20 18:28 05/13/20 18:40 Zofran IVPUSH 05/13/20 18:29 4 mg ONETIME ONE Administration Sodium Chloride 150 ml 05/13/20 18:28 Normal Saline IV 05/13/20 18:29 NOW STA Departure - Departure Time of Disposition: 19:42 Disposition: Refer to Observation Condition: Good Clinical Impression: Gastritis, Melena - Discharge Information *PRESCRIPTION DRUG MONITORING PROGRAM REVIEWED*: Not Applicable *COPY OF PRESCRIPTION DRUG MONITORING REPORT IN PATIENT DESHAWN: Not Applicable Sepsis Event Note (ED) - Evaluation Sepsis Screening Result: No Definite Risk - Focused Exam Vital Signs: Vital Signs Temp Pulse Resp BP Pulse Ox 05/13/20 17:33 35.8 C L 75 16 143/80 H 97 05/13/20 17:12 35.8 C L 75 16 143/80 H 97 - My Orders Last 24 Hours: My Active Orders 05/13/20 18:26 PATIENT RETYPE [BBK] Stat TYPE AND SCREEN [BBK] Stat Sodium Chloride 0.9% [Saline Flush] 10 ml FLUSH ASDIRECTED PRN Saline Lock Insert [OM.PC] Routine 05/13/20 18:45 Sodium Chloride 0.9% [Normal Saline] 1,000 ml IV ASDIRECTED - Assessment/Plan Last 24 Hours: My Active Orders 05/13/20 18:26 PATIENT RETYPE [BBK] Stat TYPE AND SCREEN [BBK] Stat Sodium Chloride 0.9% [Saline Flush] 10 ml FLUSH ASDIRECTED PRN Saline Lock Insert [OM.PC] Routine 05/13/20 18:45 Sodium Chloride 0.9% [Normal Saline] 1,000 ml IV ASDIRECTED Assessment:: Melena Gastritis Plan: Patient admission outpatient per hospitalist Dr. Merritt, EGD at 0730 05/14/[address] Allen.
[2020-05-13] MEDS ORDERED: Sodium Chloride 0.9% 10 ML Syringe FLUSH PRN (18:26)
[2020-05-13] MEDS ORDERED: Sodium Chloride 0.9% 10 ML SDV IV STA (18:28)
[2020-05-13] MEDS ORDERED: Ondansetron 4 MG/2 ML SDV IVPUSH ONE (18:28)
[2020-05-13] MEDS: Sodium Chloride 0.9% 1,000 ML IV SCH (18:37)
[2020-05-13] MEDS ORDERED: Ondansetron 4 MG Tab.DIS PO PRN (19:26)
[2020-05-13] MEDS ORDERED: Lactated Ringers 1,000 ML IV SCH (19:30)
[2020-05-13] MEDS ORDERED: Pantoprazole 40 MG Vial IVPUSH SCH (19:45)
--- NOTE | 2020-05-13 20:08 | PCM.HP.2 ---
H&P History of Present Illness - General Date of Service: 05/13/20 Admit Problem/Dx: Admission Diagnosis/Problem 1. Melena 2. Gastritis Source of Information: Patient, Family History Limitations: Reports: No Limitations - History of Present Illness Initial Comments - Free Text/Narative: Ms. Mary Jane Gupta is an 80 yo F admitted to [facility] on 13 May 2020 with about 3-4 months of intermittent epigastric abdominal pain d/t ulcer and known gastritis. The patient presents to the ED on day of admission after having had 4 episodes of melanotic stools at home. The patient denies any constitutional symptoms beyond what appears to be a baseline issue with intermittent light headedness. The patient was taken to procedure 3 wks ago on 04/18/2020 for placement of a carotid stent. She has recently come off of brilinta and is on ASA/Plavix. She has taken doses of those meds on day of admission. She denies coffee grounds emesis or hematemesis. She is hemodynamically stable to hypertensive in the ED. Likewise she is not tachycardic. Her Hgb is 12.6 at time of admission. She smokes 1/5 of a pack per day. She has known atrial fibrillation which is rate controlled with diltiazem and with pacemaker. She has no active signs of COVID [address] Allen from Surgery is anticipating EGD in the AM of 14 May 2020, the patient will get a rapid COVID 19 test in the ED prior to admission. All other systems are reviewed and there are no active problems otherwise noted at this time. Onset of Symptoms: Reports: Today Duration of Symptoms: Reports: Day(s):, Getting Worse Location: Reports: Abdomen Quality: Reports: Burning Severity: Moderate Improves with: Reports: None Worsens with: Reports: None Associated Symptoms: Reports: No Other Symptoms - Related Data Allergies/Adverse Reactions: Allergies Allergy/AdvReac Type Severity Reaction Status Date / Time Bgkleip-Esu-Ikl Reductase AdvReac Severe sore Verified 05/13/20 17:31 Inhibitor muscles painful to walk Home Medications: Home Meds Gabapentin [Neurontin] 600 mg PO TID 12/23/15 [History] Aspirin [Halfprin] 81 mg PO DAILY 01/03/20 [History] dilTIAZem HCL [Diltiazem 24Hr ER] 180 mg PO DAILY 01/03/20 [History] Pantoprazole Sodium [Protonix] 40 mg PO BID #30 tablet. 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: Musculoskeletal History: Reports: Back Pain, Chronic, Osteoarthritis Neurological History: Reports: TIA Psychiatric History: Reports: None Endocrine/Metabolic History: Reports: None Hematologic History: Reports: None Immunologic History: Reports: None Oncologic (Cancer) History: Reports: None Dermatologic History: Reports: None - Infectious Disease History Infectious Disease History: Reports: Chicken Pox, Measles, Mumps - Past Surgical History Head Surgeries/Procedures: Reports: None HEENT Surgical History: Reports: Cataract Surgery Cardiovascular Surgical History: Reports: Carotid Stents, Other (See Below) Other Cardiovascular Surgeries/Procedures: angiogram Respiratory Surgical History: Reports: None GI Surgical History: Reports: Appendectomy, Hernia Repair/Other Female Surgical History: Reports: Hysterectomy Endocrine Surgical History: Reports: None Neurological Surgical History: Reports: None Musculoskeletal Surgical History: Reports: None Oncologic Surgical History: Reports: None Dermatological Surgical History: Reports: None Social & Family History - Family History Cardiac: Reports: Other (See Below) Dermatologic: Reports: None Oncologic: Reports: None - Tobacco Use Tobacco Use Status *Q: Current Every Day Tobacco User Years of Tobacco use: 60 Packs/Tins Daily: 0.5 Used Tobacco, but Quit: No Second Hand Smoke Exposure: No - Caffeine Use Caffeine Use: Reports: Coffee - Recreational Drug Use Recreational Drug Use: No H&P Review of Systems - Review of Systems: Review Of Systems: Comprehensive ROS is negative, except as noted in HPI. Exam - Exam Exam: See Below - Vital Signs Vital Signs: Last Vital Signs Temp 96.5 F L 05/13/20 17:33 Pulse 75 05/13/20 17:33 Resp 16 05/13/20 17:33 BP 143/80 H 05/13/20 17:33 Pulse Ox 97 05/13/20 17:33 Weight: 119 lb 4.321 oz - Exam Quality Assessment: DVT Prophylaxis. No: Supplemental Oxygen General: Alert, Oriented, Cooperative, Mild Distress HEENT: PERRLA, Conjunctiva Clear, EOMI, Hearing Intact, Mucosa Moist & [place], Posterior Pharynx Clear, Pupils Equal, Pupils Reactive Neck: Supple, Trachea Midline, Full Range of Motion Lungs: Clear to Auscultation, Normal Respiratory Effort Cardiovascular: Regular Rate, Normal S1, Normal S2, Irregular Rhythm. No: Systolic Murmur, Diastolic Murmur, Rubs, Gallop/S3, Gallop/S4 GI/Abdominal Exam: Normal Bowel Sounds, Soft, No Organomegaly, No Distention, No Abnormal Bruit, No Mass, Tender (epigastrium is tender mildly so). No: Guarding, Rigid, Rebound Back Exam: Normal Inspection Extremities: Normal Inspection, Normal Range of Motion, Non-Tender, No Pedal Edema, Normal Capillary Refill Peripheral Pulses: 4+: Posterior Tibial (L), Posterior Tibial (R), Dorsalis Pedis (L), Dorsalis Pedis (R) Skin: Warm, Dry, Intact Neurological: Cranial Nerves Intact, Reflexes Equal Bilateral Neuro Extensive - Mental Status: Alert, Oriented x3, Normal Mood/Affect, Normal Cognition, Memory Intact Neuro Extensive - Motor, Sensory, Reflexes: CN II-XII Intact, Normal Reflexes DTR: 2+: Patella (L), Patella (R) Psychiatric: Alert, Normal Affect, Normal Mood - Patient Data Lab Results Last 24 hrs: Laboratory Results - last 24 hr 05/13/20 05/13/20 05/13/20 Range/Units 18:26 18:26 18:26 WBC 7.6 (4.5-11.0) K/uL RBC 4.03 (3.30-5.50) M/uL Hgb 12.9 (12.0-15.0) g/dL Hct 39.3 (36.0-48.0) % MCV 98 (80-98) fL MCH 32 H (27-31) pg MCHC 33 (32-36) % Plt Count 259 (150-400) K/uL Neut % (Auto) 65 (36-66) % Lymph % (Auto) 23 L (24-44) % [place] % (Auto) 10 H (2-6) % Eos % (Auto) 2 (2-4) % Baso % (Auto) 1 (0-1) % PT (9.5-12.0) sec INR (0.80-1.20) APTT (27.0-36.0) sec Sodium 135 L (140-148) mmol/L Potassium 3.8 (3.6-5.2) mmol/L Chloride 99 L (100-108) mmol/L Carbon Dioxide 26 (21-32) mmol/L Anion Gap 13.8 (5.0-14.0) mmol/L BUN 34 H D (7-18) mg/dL Creatinine 1.0 (0.6-1.0) mg/dL Est Cr Clr Drug Dosing 32.23 mL/min Estimated GFR (MDRD) 53 L (>60) Glucose 98 (74-106) mg/dL Calcium 9.1 (8.5-10.1) mg/dL Magnesium 2.3 (1.8-2.4) mg/dL Total Bilirubin 0.3 (0.2-1.0) mg/dL AST 16 (15-37) U/L ALT 27 (12-78) U/L Alkaline Phosphatase 50 (46-116) U/L Total Protein 7.0 (6.4-8.2) g/dL Albumin 3.8 (3.4-5.0) g/dL Globulin 3.2 (2.3-3.5) g/dL Albumin/Globulin Ratio 1.2 (1.2-2.2) Blood Type A POSITIVE Gel Antibody Screen Negative 05/13/20 Range/Units 18:30 WBC (4.5-11.0) K/uL RBC (3.30-5.50) M/uL Hgb (12.0-15.0) g/dL Hct (36.0-48.0) % MCV (80-98) fL MCH (27-31) pg MCHC (32-36) % Plt Count (150-400) K/uL Neut % (Auto) (36-66) % Lymph % (Auto) (24-44) % [place] % (Auto) (2-6) % Eos % (Auto) (2-4) % Baso % (Auto) (0-1) % PT 10.5 (9.5-12.0) sec INR 0.96 (0.80-1.20) APTT 23.2 L (27.0-36.0) sec Sodium (140-148) mmol/L Potassium (3.6-5.2) mmol/L Chloride (100-108) mmol/L Carbon Dioxide (21-32) mmol/L Anion Gap (5.0-14.0) mmol/L BUN (7-18) mg/dL Creatinine (0.6-1.0) mg/dL Est Cr Clr Drug Dosing mL/min Estimated GFR (MDRD) (>60) Glucose (74-106) mg/dL Calcium (8.5-10.1) mg/dL Magnesium (1.8-2.4) mg/dL Total Bilirubin (0.2-1.0) mg/dL AST (15-37) U/L ALT (12-78) U/L Alkaline Phosphatase (46-116) U/L Total Protein (6.4-8.2) g/dL Albumin (3.4-5.0) g/dL Globulin (2.3-3.5) g/dL Albumin/Globulin Ratio (1.2-2.2) Blood Type Gel Antibody Screen Result Diagrams: 05/13/20 18:26 05/13/20 18:26 Elton Results Last 24 hrs: Microbiology 05/13/20 18:26 Occult Blood - Final Stool / Feces Sepsis Event Note - Evaluation Sepsis Screening Result: No Definite Risk - Focused Exam Vital Signs: Vital Signs Temp Pulse Resp BP Pulse Ox 05/13/20 17:33 96.5 F L 75 16 143/80 H 97 05/13/20 17:12 96.5 F L 75 16 143/80 H 97 Problem List Initiated/Reviewed/Updated: Yes Orders Last 24hrs: Active Orders 24 hr Category Date Time Status Patient Status [ADT] Routine ADT 05/13/20 19:26 Active Ambulate [RC] QID Care 05/13/20 19:26 Active Antiembolic Devices [RC] .Routine Care 05/13/20 19:26 Active Oxygen Therapy [RC] PRN Care 05/13/20 19:26 Active Up to Chair [RC] QID Care 05/13/20 19:26 Active VTE/DVT Education [RC] Per Unit Routine Care 05/13/20 19:26 Active Vital Signs [RC] Q4H Care 05/13/20 19:26 Active Nothing per Oral Now Diet [DIET] Diet 05/13/20 Dinner Active CBC WITH AUTO DIFF [HEME] DAILY Lab 05/14/20 05:00 Ordered CBC WITH AUTO DIFF [HEME] DAILY Lab 05/15/20 05:00 Ordered COMPREHENSIVE METABOLIC PN,CMP [CHEM] DAILY Lab 05/14/20 05:00 Ordered COMPREHENSIVE METABOLIC PN,CMP [CHEM] DAILY Lab 05/15/20 05:00 Ordered CORONAVIRUS COVID-19 TAM [MOLEC] Routine Lab 05/13/20 19:56 Ordered HEMOGLOBIN [HEME] Routine Lab 05/13/20 23:59 Ordered PATIENT RETYPE [BBK] Stat Lab 05/13/20 18:26 Results TYPE AND SCREEN [BBK] Stat Lab 05/13/20 18:26 Results Gabapentin [Neurontin] Med 05/13/20 21:00 Active 600 mg PO TID Lactated Ringers [Ringers, Lactated] 1,000 ml Med 05/13/20 19:30 Active IV ASDIRECTED Ondansetron [Zofran ODT] Med 05/13/20 19:26 Active 4 mg PO Q6H PRN Pantoprazole [ProTONIX IV] Med 05/13/20 19:45 Active 40 mg IVPUSH Q12H Sodium Chloride 0.9% [Normal Saline] 1,000 ml Med 05/13/20 18:45 Active IV ASDIRECTED Sodium Chloride 0.9% [Saline Flush] Med 05/13/20 18:26 Active 10 ml FLUSH ASDIRECTED PRN dilTIAZem HCL [Diltiazem 24Hr ER] Med 05/14/20 09:00 Active 180 mg PO DAILY Saline Lock Insert [OM.PC] Routine Oth 05/13/20 18:26 Ordered Sequential Compression Device [OM.PC] Per Unit Routine Oth 05/13/20 19:30 Ordered Resuscitation Status Routine Resus Stat 05/13/20 19:26 Ordered Medication Orders Sodium Chloride (Normal Saline) 1,000 mls @ 150 mls/hr IV ASDIRECTED TARUN Last Admin: 05/13/20 18:37 Dose: 150 mls/hr Documented by: HALLIAN Lactated Ringer's (Ringers, Lactated) 1,000 mls @ 100 mls/hr IV ASDIRECTED TARUN Non-Formulary Medication (Diltiazem Hcl [Diltiazem 24hr Er]) 180 mg PO DAILY TARUN Non-Formulary Medication (Gabapentin [Neurontin]) 600 mg PO TID TARUN Ondansetron HCl (Zofran Odt) 4 mg PO Q6H PRN PRN Reason: Nausea able to take PO Pantoprazole Sodium (Protonix Iv) 40 mg IVPUSH Q12H TARUN Sodium Chloride (Saline Flush) 10 ml FLUSH ASDIRECTED PRN PRN Reason: Keep Vein Open Last Admin: 05/13/20 18:38 Dose: 10 ml Documented by: PAULETTE Assessment/Plan Comment:: Assessment and Plan: 1. HEENT No active issues Patient does have carotid stent in place 2. 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 Respiratory Stable, no active issues 4. GI Patient has known history of ulcer, gastritis and was taken to EGD in January of 2020 for management of this. Is on protonix po q day. Has not taken other agents like carafate or the like TENSION MACHINE OPERATOR. - NPO - EGD at [address] Allen on 14 May - Hold ASA/Plavix but should resume w/in 24 hours to maintain antiplatelet activity and protection of the stent - C/S to Dr. Allen (Surgery for EGD - Dr. Allen is aware) - Protonix 40 mg IV q 12 hours - Repeat Hgb this evening around midnight - CBC, CMP in AM - LR at 100 mL/hr 5. F/E/N As above 6. ID No active issues COVID 19 screen pending 7. Renal Stable 8. Neuromusculoskeletal Ambulate per routine As above for stent management 9. Psychiatric/Mental Health/Cognition No outward signs of dementia, delirium DISPOSITION: Procedure in AM of 14 May, restart PO/meds post procedure per Surgery, anticipate D/C w/in 1-2 days Ranjan Merritt M.D. 13 May 2020 - Mortality Measure Prognosis:: Good
[2020-05-13] MEDS ORDERED: Non-Formulary Medication 1 Each (Gabapentin [Neurontin] 600 MG) PO SCH (21:00)
[2020-05-14] MEDS: Sodium Chloride 0.9% 1,000 ML IV SCH (03:02)
[2020-05-14] MEDS ORDERED: Propofol 200 MG/20 ML SDV ONE (07:19)
--- NOTE | 2020-05-14 08:53 | PCM.DCSUM1 ---
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 The patient has had problems with gastritis as well as ulcer as recently as January 2020. The patient was taken to EGD on AM of 14 May 2020 which showed evidence of 2 ulcers in the antrum. Clotest is pending at the present. The patient was restarted on full liquid diet for brunch with orders to advance as tolerated. The patient had stable hemoglobin throughout the admission with Hgb between 12.4 to 12.6. She had no hemodynamic or vital instability. She was stabilized on 40 mg IV protonix bid and will discharge on 40 mg po bid protonix. I am recommending a Gastroenterology follow-up as well given the recurrent issues with gastritis, ulcer, etc. Diagnosis: Stroke: No - Discharge Data Discharge Date: 05/14/20 Discharge Disposition: Home, Self-Care 01 Condition: Good - Referral to Home Health Primary Care Physician: MARSHA Stallings - Patient Instructions Diet: Usual Diet as Tolerated - Discharge Plan *PRESCRIPTION DRUG MONITORING PROGRAM REVIEWED*: Not Applicable *COPY OF PRESCRIPTION DRUG MONITORING REPORT IN PATIENT DESHAWN: Not Applicable Prescriptions/Med Rec: Pantoprazole Sodium [Protonix] 40 mg PO BID #30 tablet. Home Medications: Home Meds Gabapentin [Neurontin] 600 mg PO TID 12/23/15 [History] Aspirin [Halfprin] 81 mg PO DAILY 01/03/20 [History] dilTIAZem HCL [Diltiazem 24Hr ER] 180 mg PO DAILY 01/03/20 [History] Docusate Sodium/Sennosides [Senokot-S] 2 tab PO BEDTIME PRN 01/27/20 [History] Flaxseed 2 oz PO DAILY 01/27/20 [History] Clopidogrel [Plavix] 75 mg PO DAILY 05/13/20 [History] Pantoprazole Sodium [Protonix] 40 mg PO BID #30 tablet. 05/14/20 [Rx] Oxygen Therapy Mode: Room Air Forms: ED Department Discharge Referrals: Mone Ortiz PA [Primary Care Provider] - - Discharge Summary/Plan Comment DC Time >30 min.: Yes - Patient Data Vitals - Most Recent: Last Vital Signs Temp 97.0 F 05/14/20 08:20 Pulse 57 L 05/14/20 08:35 Resp 16 05/14/20 08:35 BP 106/67 05/14/20 08:35 Pulse Ox 95 05/14/20 08:35 Weight - Most Recent: 117 lb 9.6 oz I&O - Last 24 hours: Intake & Output 05/13/20 05/14/20 05/14/20 22:59 06:59 14:59 Output Total 1300 Balance -1300 Lab Results - Last 24 hrs: Laboratory Results - last 24 hr 05/13/20 05/13/20 05/13/20 Range/Units 18:26 18:26 18:26 WBC 7.6 (4.5-11.0) K/uL RBC 4.03 (3.30-5.50) M/uL Hgb 12.9 (12.0-15.0) g/dL Hct 39.3 (36.0-48.0) % MCV 98 (80-98) fL MCH 32 H (27-31) pg MCHC 33 (32-36) % Plt Count 259 (150-400) K/uL Neut % (Auto) 65 (36-66) % Lymph % (Auto) 23 L (24-44) % [place] % (Auto) 10 H (2-6) % Eos % (Auto) 2 (2-4) % Baso % (Auto) 1 (0-1) % PT (9.5-12.0) sec INR (0.80-1.20) APTT (27.0-36.0) sec Sodium 135 L (140-148) mmol/L Potassium 3.8 (3.6-5.2) mmol/L Chloride 99 L (100-108) mmol/L Carbon Dioxide 26 (21-32) mmol/L Anion Gap 13.8 (5.0-14.0) mmol/L BUN 34 H D (7-18) mg/dL Creatinine 1.0 (0.6-1.0) mg/dL Est Cr Clr Drug Dosing 32.23 mL/min Estimated GFR (MDRD) 53 L (>60) Glucose 98 (74-106) mg/dL Calcium 9.1 (8.5-10.1) mg/dL Magnesium 2.3 (1.8-2.4) mg/dL Total Bilirubin 0.3 (0.2-1.0) mg/dL AST 16 (15-37) U/L ALT 27 (12-78) U/L Alkaline Phosphatase 50 (46-116) U/L Total Protein 7.0 (6.4-8.2) g/dL Albumin 3.8 (3.4-5.0) g/dL Globulin 3.2 (2.3-3.5) g/dL Albumin/Globulin Ratio 1.2 (1.2-2.2) SARS-CoV-2 RNA (TAM) (NEGATIVE) Blood Type A POSITIVE Gel Antibody Screen Negative 05/13/20 05/13/20 05/14/20 Range/Units 18:30 20:00 00:55 WBC (4.5-11.0) K/uL RBC (3.30-5.50) M/uL Hgb 12.4 (12.0-15.0) g/dL Hct (36.0-48.0) % MCV (80-98) fL MCH (27-31) pg MCHC (32-36) % Plt Count (150-400) K/uL Neut % (Auto) (36-66) % Lymph % (Auto) (24-44) % [place] % (Auto) (2-6) % Eos % (Auto) (2-4) % Baso % (Auto) (0-1) % PT 10.5 (9.5-12.0) sec INR 0.96 (0.80-1.20) APTT 23.2 L (27.0-36.0) sec Sodium (140-148) mmol/L Potassium (3.6-5.2) mmol/L Chloride (100-108) mmol/L Carbon Dioxide (21-32) mmol/L Anion Gap (5.0-14.0) mmol/L BUN (7-18) mg/dL Creatinine (0.6-1.0) mg/dL Est Cr Clr Drug Dosing mL/min Estimated GFR (MDRD) (>60) Glucose (74-106) mg/dL Calcium (8.5-10.1) mg/dL Magnesium (1.8-2.4) mg/dL Total Bilirubin (0.2-1.0) mg/dL AST (15-37) U/L ALT (12-78) U/L Alkaline Phosphatase (46-116) U/L Total Protein (6.4-8.2) g/dL Albumin (3.4-5.0) g/dL Globulin (2.3-3.5) g/dL Albumin/Globulin Ratio (1.2-2.2) SARS-CoV-2 RNA (TAM) Negative (NEGATIVE) Blood Type Gel Antibody Screen 05/14/20 05/14/20 Range/Units 04:11 04:11 WBC 5.2 (4.5-11.0) K/uL RBC 3.91 (3.30-5.50) M/uL Hgb 12.6 (12.0-15.0) g/dL Hct 38.3 (36.0-48.0) % MCV 98 (80-98) fL MCH 32 H (27-31) pg MCHC 33 (32-36) % Plt Count 242 (150-400) K/uL Neut % (Auto) 59 (36-66) % Lymph % (Auto) 25 (24-44) % [place] % (Auto) 11 H (2-6) % Eos % (Auto) 4 (2-4) % Baso % (Auto) 1 (0-1) % PT (9.5-12.0) sec INR (0.80-1.20) APTT (27.0-36.0) sec Sodium 139 L (140-148) mmol/L Potassium 4.4 (3.6-5.2) mmol/L Chloride 104 (100-108) mmol/L Carbon Dioxide 27 (21-32) mmol/L Anion Gap 12.4 (5.0-14.0) mmol/L BUN 24 H (7-18) mg/dL Creatinine 1.0 (0.6-1.0) mg/dL Est Cr Clr Drug Dosing 32.23 mL/min Estimated GFR (MDRD) 53 L (>60) Glucose 90 (74-106) mg/dL Calcium 8.7 (8.5-10.1) mg/dL Magnesium (1.8-2.4) mg/dL Total Bilirubin 0.5 D (0.2-1.0) mg/dL AST 17 (15-37) U/L ALT 22 (12-78) U/L Alkaline Phosphatase 45 L (46-116) U/L Total Protein 6.4 (6.4-8.2) g/dL Albumin 3.3 L (3.4-5.0) g/dL Globulin 3.1 (2.3-3.5) g/dL Albumin/Globulin Ratio 1.1 L (1.2-2.2) SARS-CoV-2 RNA (TAM) (NEGATIVE) Blood Type Gel Antibody Screen NNEA Results - Last 24 hrs: Microbiology 05/13/20 18:26 Occult Blood - Final Stool / Feces Med Orders - Current: Current Medications Al Hydroxide/Mg Hydroxide 15 (ml/ Lidocaine HCl 15 ml) 0 ml PO ONETIME ONE Stop: 05/14/20 09:01 Diltiazem HCl (Cardizem Cd) 180 mg PO DAILY [facility] Last Admin: 05/14/20 08:26 Dose: 180 mg Documented by: Gabapentin (Neurontin) 600 mg PO TID [facility] Last Admin: 05/14/20 08:26 Dose: 600 mg Documented by: Lactated Ringer's (Ringers, Lactated) 1,000 mls @ 100 mls/hr IV ASDIRECTED [facility] Last Admin: 05/14/20 08:19 Dose: 100 mls/hr Documented by: Influenza Virus Vaccine (Fluzone High-Dose Quad ) 240 mcg IM .ONCE ONE Stop: 05/14/20 10:01 Ondansetron HCl (Zofran Odt) 4 mg PO Q6H PRN PRN Reason: Nausea able to take PO Pantoprazole Sodium (Protonix Iv) 40 mg IVPUSH Q12H [facility] Last Admin: 05/14/20 08:26 Dose: 40 mg Documented by: Sodium Chloride (Saline Flush) 10 ml FLUSH ASDIRECTED PRN PRN Reason: Keep Vein Open Last Admin: 05/13/20 18:38 Dose: 10 ml Documented by: Discontinued Medications Sodium Chloride (Normal Saline) 1,000 mls @ 150 mls/hr IV ASDIRECTED [facility] Last Admin: 05/14/20 03:02 Dose: 150 mls/hr Documented by: Influenza Virus Vaccine (Pharmacy To Dose - Influenza Vaccine) 1 each IM ONETIME ONE Stop: 05/14/20 09:01 Non-Formulary Medication (Gabapentin [Neurontin]) 600 mg PO TID [facility] Last Admin: 05/13/20 21:41 Dose: Not Given Documented by: Ondansetron HCl (Zofran) 4 mg IVPUSH ONETIME ONE Stop: 05/13/20 18:29 Last Admin: 05/13/20 18:40 Dose: 4 mg Documented by: Pantoprazole Sodium (Protonix Iv) 40 mg IVPUSH Q12H [facility] Last Admin: 05/13/20 21:41 Dose: 40 mg Documented by: Propofol (Diprivan 20 Ml) Confirm Administered Dose 200 mg .ROUTE .STK-MED ONE Stop: 05/14/20 07:20 Sodium Chloride (Normal Saline) 150 ml IV NOW STA Stop: 05/13/20 18:29 Last Admin: 05/13/20 21:42 Dose: Not Given Documented by:
[2020-05-14] MEDS ORDERED: Pantoprazole 40 MG Vial IVPUSH SCH (09:00)
[2020-05-14] MEDS ORDERED: Gabapentin 300 MG Cap PO SCH (09:00)
[2020-05-14] MEDS ORDERED: Diltiazem 180 MG Cap.CD PO SCH (09:00)
[2020-05-14] MEDS ORDERED: Alum Hydrox/Mag Hydrox/Simeth 15 ML, Lidocaine 2% 15 ML PO ONE ×2 (09:00)
[2020-05-14] MEDS ORDERED: FLU Vacc QV2020-21(65YR UP)/PF 240 MCG/0.7 ML Syringe IM ONE (10:00)
[2020-05-14 10:25] VITALS: PULSE 62
[2020-05-14 11:30] VITALS: BP 156/60
--- NOTE | 2020-05-16 12:23 | OR ---
DATE OF PROCEDURE: 05/14/2020 SURGEON: Zhen Allen MD PREOPERATIVE DIAGNOSIS: Upper gastrointestinal bleeding. POSTOPERATIVE DIAGNOSIS: Distal esophagitis with 2 small erosions covered with fibrinous exudate (no active bleeding but likely source of recent upper gastrointestinal bleeding). OPERATIVE PROCEDURE: Esophagogastroduodenoscopy with antral biopsies for CLOtest. ANESTHESIA: IV sedation. INDICATION FOR PROCEDURE: An 80-year-old presenting with some black stools consistent with an upper gastrointestinal bleeding episode. She does have history of recent problems with gastric ulceration. Plan is to proceed with an upper gastrointestinal endoscopy with biopsies as indicated. Potential risks including bleeding and perforation were discussed, and the patient wishes to proceed. DETAILS OF PROCEDURE: The patient was taken to the operating room, placed in a left lateral decubitus position. IV sedation was administered, after which the upper GI endoscope was passed orally through the length of the esophagus into the stomach with retroflexion view of the fundus, and thereafter through the pyloric channel into the proximal duodenum. Findings were normal hypopharynx, larynx, upper esophageal sphincter, and esophageal body. At the EG junction, the patient was noted to have some active gastroesophageal reflux disease. There were 2 small erosions measuring in the range of 2 to 3 mm that were covered with fibrinous exudate. These were not actively bleeding, but certainly likely being consistent with sources of recent bleeding. Within the stomach, there was a more or less diffuse gastritis without erosions or ulcers. The pyloric channel and proximal duodenum were unremarkable. At this point, biopsies of the antrum were obtained for CLOtest for H pylori. We elected not to biopsy the distal esophagus at this point as based on recent endoscopic findings, these areas of pathology are relatively acute in nature and biopsies might result in some additional bleeding. The scope was then withdrawn and the procedure concluded. The plan at this point will be to move the patient's proton pump inhibitor use to twice a day for a period of time and she will be following up with her primary care physician in the post hospital phase. Zhen Allen MD /[id number]
== END 2020-05-14 13:00 | disposition home or self-care (01) | DRG 368 ==
LOC: JP.ED 16:52 → JP.MS 19:26
PROVIDERS: ADMIT Hospitalist; ATTEND Hospitalist
PROC: 0DB68ZX Excision of Stomach, Via Natural or Artificial Opening Endoscopic, Diagnostic (ICD-10-PCS; principal; 2020-05-14)
PROC: 3E02340 Introduction of Influenza Vaccine into Muscle, Percutaneous Approach (ICD-10-PCS; 2020-05-14)
DX: K29.70 Gastritis, unspecified, without bleeding (principal); K92.1 Melena; K21.01 Gastro-esophageal reflux disease with esophagitis, with bleeding; K29.71 Gastritis, unspecified, with bleeding; H54.7 Unspecified visual loss; E78.00 Pure hypercholesterolemia, unspecified; K57.90 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 of intestine, part unspecified, without perforation or abscess without bleeding; I10 Essential (primary) hypertension; G89.29 Other chronic pain; M54.9 Dorsalgia, unspecified; M19.90 Unspecified osteoarthritis, unspecified site; F17.200 Nicotine dependence, unspecified, uncomplicated; Z86.73 Personal history of transient ischemic attack (TIA), and cerebral infarction without residual deficits; F17.210 Nicotine dependence, cigarettes, uncomplicated; I48.91 Unspecified atrial fibrillation; Z20.828 Contact with and (suspected) exposure to other viral communicable diseases; Z23 Encounter for immunization; Z88.8 Allergy status to other drugs, medicaments and biological substances; Z95.0 Presence of cardiac pacemaker; Z79.82 Long term (current) use of aspirin; Z79.02 Long term (current) use of antithrombotics/antiplatelets; Z79.899 Other long term (current) drug therapy
CPT/HCPCS: 36415; 80053; 82270; 83735; 85025; 85610; 85730; 86850; 86900; 86901; 96374; 99284 ×2; J2405; J7030; 85018; 87081; 90662; 99221-AI; 99239; A9270-GY; C9113; G0008; J2704; J7120; U0002

== ENCOUNTER 2020-11-18 21:35 | Emergency (ER) | payer MEDICARE, OTHER ==
[2020-11-18 22:55] VITALS: BP 148/85; PULSE 60
--- NOTE | 2020-11-18 23:13 | EDM.PDOC ---
ED HPI GENERAL MEDICAL PROBLEM - General Chief Complaint: General Stated Complaint: MEDICAL VIA [facility] Time Seen by Provider: 11/18/20 21:55 Source of Information: Reports: Patient, EMS History Limitations: Reports: No Limitations - History of Present Illness INITIAL COMMENTS - FREE TEXT/NARRATIVE: Mary Jane is an 80-year-old female presenting to the ED via [facility] for skip luation of syncope. The patient was in her usual state of health until she bent over to pick something up off the floor. Apparently she had a syncopal episode hitting the vertex of her head on the floor. She woke up on the floor complaining of a headache and called EMS. She does have a previous history of syncopal episode prior to getting her atrial paced pacemaker. This occurred approximately 5 years ago. She denies any nausea or vomiting. She has no dizziness. The patient reports that she was sitting in the chair and bent over to tie her shoes and fell out of the chair hitting her head. Anterior Head Pain Score (Numeric/FACES): 8 - Related Data Allergies Allergy/AdvReac Type Severity Reaction Status Date / Time [id number] Reductase AdvReac Severe sore Verified 11/18/20 22:47 Inhibitor muscles painful to walk Home Meds: Home Meds Gabapentin [Neurontin] 600 mg PO TID 12/23/15 [History] Aspirin [Halfprin] 81 mg PO DAILY 01/03/20 [History] dilTIAZem HCL [Diltiazem 24Hr ER] 180 mg PO DAILY 01/03/20 [History] Docusate Sodium/Sennosides [Senokot-S] 2 tab PO BEDTIME PRN 01/27/20 [History] Flaxseed 2 oz PO DAILY 01/27/20 [History] Clopidogrel [Plavix] 75 mg PO DAILY 05/13/20 [History] Pantoprazole Sodium [Protonix] 40 mg PO BID #30 tablet. 05/14/20 [Rx] Past Medical History HEENT History: Reports: Impaired Vision Cardiovascular History: Reports: High Cholesterol, Hypertension, Pacemaker Respiratory History: Reports: None 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 History: Reports: 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, Other (See Below) Other 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 History: GASTRIC ULCER Genitourinary History: Reports: None [employer] HE[employer] SPECIALIST History: Reports: Musculoskeletal History: Reports: Back Pain, Chronic, Osteoarthritis Neurological History: Reports: TIA Psychiatric History: Reports: None Endocrine/Metabolic History: Reports: None Hematologic History: Reports: None Immunologic History: Reports: None Oncologic (Cancer) History: Reports: None Dermatologic History: Reports: None - Infectious Disease History Infectious Disease History: Reports: Chicken Pox, Measles, Mumps - Past Surgical History HEENT Surgical History: Reports: Cataract Surgery Cardiovascular Surgical History: Reports: Carotid Stents, Other (See Below) Other Cardiovascular Surgeries/Procedures: angiogram Respiratory Surgical History: Reports: None GI Surgical History: Reports: Appendectomy, Hernia Repair/Other Female Surgical History: Reports: Hysterectomy Endocrine Surgical History: Reports: None Neurological Surgical History: Reports: None Musculoskeletal Surgical History: Reports: None Oncologic Surgical History: Reports: None Dermatological Surgical History: Reports: None Social & Family History - Family History Cardiac: Reports: Other (See Below) Dermatologic: Reports: None Oncologic: Reports: None - Tobacco Use Tobacco Use Status *Q: Current Every Day Tobacco User Years of Tobacco use: 12 Packs/Tins Daily: 0.2 Used Tobacco, but Quit: No Second Hand Smoke Exposure: No - Caffeine Use Caffeine Use: Reports: Coffee - Recreational Drug Use Recreational Drug Use: No ED ROS GENERAL - Review of Systems Review Of Systems: See Below Constitutional: Reports: No Symptoms HEENT: Reports: No Symptoms Respiratory: Reports: No Symptoms Cardiovascular: Reports: Syncope Endocrine: Reports: No Symptoms GI/Abdominal: Reports: No Symptoms : Reports: No Symptoms Musculoskeletal: Reports: No Symptoms Skin: Reports: No Symptoms Neurological: Reports: Headache, Syncope Psychiatric: Reports: No Symptoms Hematologic/Lymphatic: Reports: No Symptoms Immunologic: Reports: No Symptoms ED EXAM, GENERAL - Physical Exam Exam: See Below Exam Limited By: No Limitations General Appearance: Alert, No Apparent Distress Eye Exam: Bilateral Eye: EOMI, PERRL Head: Normocephalic, Other (Tenderness in the frontal scalp without obvious hematoma. No step-off.) Neck: Normal Inspection, Supple, Non-Tender, Full Range of Motion Respiratory/Chest: No Respiratory Distress, Lungs Clear, Normal Breath Sounds Cardiovascular: Normal Peripheral Pulses, Regular Rate, Rhythm, No Murmur Peripheral Pulses: 2+: Radial (L), Radial (R), Posterior Tibial (L), Posterior Tibial (R) GI/Abdominal: Normal Bowel Sounds, Soft, Non-Tender Back Exam: Normal Inspection, Full Range of Motion Extremities: Normal Inspection, Normal Range of Motion, No Pedal Edema Neurological: Alert, Oriented, Normal Cognition, No Motor/Sensory Deficits Psychiatric: Normal Affect, Normal Mood Skin Exam: Warm, Dry, Intact, Normal Color Lymphatic: No Adenopathy #1 Interpretation EKG Date: 11/18/20 Time: 22:27 Rhythm: Other (Atrial paced rhythm) Rate (Beats/Min): 65 QRS: Normal ST-T: Other (Nonspecific ST-T changes secondary repolarization abnormality) QT: Prolonged Comparison: No Change Course - Vital Signs Last Recorded V/S: Last Vital Signs Temp 36.3 C 11/18/20 22:54 Pulse 60 11/18/20 22:54 Resp 16 11/18/20 22:54 BP 148/85 H 11/18/20 22:54 Pulse Ox 95 11/18/20 22:54 - Orders/Labs/Meds Orders: Active Orders 24 hr Category Date Time Status EKG Documentation Completion [RC] ASDIRECTED Care 11/18/20 21:56 Active EKG 12 Lead [EK] Routine Ther 11/18/20 21:56 Ordered Labs: Laboratory Tests 11/18/20 11/18/20 11/18/20 Range/Units 22:05 22:05 22:05 WBC 7.0 (4.5-11.0) K/uL RBC 4.08 (3.30-5.50) M/uL Hgb 13.1 (12.0-15.0) g/dL Hct 40.1 (36.0-48.0) % MCV 98 (80-98) fL MCH 32 H (27-31) pg MCHC 33 (32-36) % Plt Count 259 (150-400) K/uL Neut % (Auto) 62 (36-66) % Lymph % (Auto) 26 (24-44) % Dawes % (Auto) 10 H (2-6) % Eos % (Auto) 2 (2-4) % Baso % (Auto) 0 (0-1) % PT 11.0 (9.5-12.0) sec INR 1.01 (0.80-1.20) Sodium 144 (140-148) mmol/L Potassium 3.7 (3.6-5.2) mmol/L Chloride 104 (100-108) mmol/L Carbon Dioxide 28 (21-32) mmol/L Anion Gap 12.5 (5.0-14.0) mmol/L BUN 23 H (7-18) mg/dL Creatinine 1.1 H (0.6-1.0) mg/dL Est Cr Clr Drug Dosing TNP Estimated GFR (MDRD) 48 L (>60) Glucose 105 (74-106) mg/dL Calcium 9.8 (8.5-10.1) mg/dL Total Bilirubin 0.4 (0.2-1.0) mg/dL AST 20 (15-37) U/L ALT 22 (12-78) U/L Alkaline Phosphatase 62 (46-116) U/L Troponin I < 0.017 (0.000-0.056) ng/mL Total Protein 7.0 (6.4-8.2) g/dL Albumin 3.9 (3.4-5.0) g/dL Globulin 3.1 (2.3-3.5) g/dL Albumin/Globulin Ratio 1.3 (1.2-2.2) TSH, Ultra Sensitive 2.739 (0.358-3.740) uIU/mL Meds: Medications Discontinued Medications Generic Name Dose Route Start Last Admin Trade Name Freq PRN Reason Stop Dose Admin Acetaminophen 650 mg 11/18/20 23:14 11/18/20 23:19 Acetaminophen 325 Mg Tab PO 11/18/20 23:15 650 mg NOW ONE Administration - Radiology Interpretation Free Text/Narrative:: I reviewed the report on the CT of the head without IV contrast showing no evidence of mass, acute infarct, or hemorrhage. There is mild diffuse cortical atrophy. There is mild stable encephalomalacia present within the right temporal lobe with mild patchy regions of low attenuation present in the periventricular white matter likely due to chronic microvascular ischemic changes. - Re-Assessments/Exams Free Text/Narrative Re-Assessment/Exam: 11/19/20 00:30 I reviewed the EKG, CT of the head without contrast, and patient's labs. There is nothing that is remarkable for the cause of her syncope today. The patient has an atrial paced rhythm. She likely experienced an episode of vasovagal syncope. There is no significant electrolyte abnormalities, nor is there any evidence for an acute stroke or intracranial abnormality to account for her syncopal episode. At this time, I believe she is suitable for discharge home in satisfactory condition. Indications return to the ED were discussed. Departure - Departure Time of Disposition: 00:31 Disposition: Home, Self-Care 01 Clinical Impression: Vasovagal syncope, Contusion of scalp, initial encounter - Discharge Information Instructions: Syncope, [id number], Facial or Scalp Contusion, [id number] Referrals: PCP,None [Primary Care Provider] - Forms: ED Department Discharge Care Plan Goals: Your work-up today demonstrates no sudden change in your brain or heart function. It is likely that you had an episode called vasovagal syncope which causes a sudden drop in your blood pressure and caused you to blackout. Make sure that you are drinking plenty of fluids to maintain hydration as this will lessen the likelihood of this recurring. Follow-up with your primary care provider as needed. Return to the ED should you have any significant concerns. Sepsis Event Note (ED) - Evaluation Sepsis Screening Result: No Definite Risk - Focused Exam Vital Signs: Vital Signs Temp Pulse Resp BP Pulse Ox 11/18/20 22:54 36.3 C 60 16 148/85 H 95 - Problem List & Annotations (1) Contusion of scalp, initial encounter SNOMED Code(s): 41588130 Code(s): S00.03XA - CONTUSION OF SCALP, INITIAL ENCOUNTER Status: Acute Priority: Medium Current Visit: Yes (2) Vasovagal syncope SNOMED Code(s): 840488079 Code(s): R55 - SYNCOPE AND COLLAPSE Status: Acute Priority: High Current Visit: Yes - Problem List Review Problem List Initiated/Reviewed/Updated: Yes - My Orders Last 24 Hours: My Active Orders 11/18/20 21:56 EKG Documentation Completion [RC] ASDIRECTED EKG 12 Lead [EK] Routine - Assessment/Plan Last 24 Hours: My Active Orders 11/18/20 21:56 EKG Documentation Completion [RC] ASDIRECTED EKG 12 Lead [EK] Routine
[2020-11-18] MEDS ORDERED: Acetaminophen 325 MG Tab PO ONE (23:14)
--- NOTE | 2020-11-19 00:05 | CRLCT ---
INDICATION: Headache, head injury TECHNIQUE: CT Head without i.v. contrast. Coronal and sagittal reformats were obtained. COMPARISON: 04/22/2020 FINDINGS: CSF space: Unremarkable for age. Brain: No evidence of mass, acute infarction or hemorrhage is seen. No mass-effect or midline shift is seen. Mild diffuse cortical atrophy is noted. Mild stable encephalomalacia is present within the right temporal pole. mild patchy regions of low attenuation are present in the periventricular white matter, likely due to chronic microvascular ischemic changes. The brain parenchyma is otherwise normal in appearance with preservation of the galan-white matter junction. Calvarium: The visualized paranasal sinuses are well aerated. The mastoid air cells are clear. The visualized orbits are grossly unremarkable. The calvarium is unremarkable in appearance with no fractures identified. IMPRESSION: 1. No evidence of acute infarction, intracranial hemorrhage, or mass-effect seen. Dictated by Dg Pineda MD @ 11/19/2020 12:04:05 AM Please note that all CT scans at this facility use dose modulation, iterative reconstruction, and/or weight-based dosing when appropriate to reduce radiation dose to as low as reasonably achievable. Dictated by: Dg Pineda MD @ 11/19/2020 00:04:10 (Electronically Signed)
== END 2020-11-19 01:37 | disposition home or self-care (01) ==
LOC: JP.ED 21:35
DX: S00.03XA Contusion of scalp, initial encounter (principal); R55 Syncope and collapse; E78.00 Pure hypercholesterolemia, unspecified; I10 Essential (primary) hypertension; Z72.0 Tobacco use; Z95.0 Presence of cardiac pacemaker; Z79.82 Long term (current) use of aspirin; Z79.02 Long term (current) use of antithrombotics/antiplatelets; Z88.8 Allergy status to other drugs, medicaments and biological substances; W22.8XXA Striking against or struck by other objects, initial encounter
CPT/HCPCS: 36415; 70450; 80053; 84443; 84484; 85025; 85610; 93005; 99283; 99285; A9270